=== PATIENT | male | born 1995 | race Caucasian/White ===

== ENCOUNTER 2018-02-02 10:12 | Emergency (ER) | payer SELFPAY ==
--- NOTE | 2018-02-02 10:38 | RAD REPORT ---
EXAM DESCRIPTION: CT - Head Brain Wo Cont - 02/02/2018 10:28 am CLINICAL HISTORY: Trauma, transient alteration of awareness COMPARISON: None. TECHNIQUE: Axial 5 mm thick images of the head were obtained without IV contrast. All CT scans are performed using dose optimization technique as appropriate and may include automated exposure control or mA/KV adjustment according to patient size. FINDINGS: No intracranial hemorrhage, mass, edema or shift of mid-line structures. No acute infarcti on changes seen. No abnormal extra-axial fluid collections. Ventricles are normal. Mastoid air cells and visualized portions of the paranasal sinuses are clear. No acute bony findings. IMPRESSION: Negative non-contrast CT head examination.
[2018-02-02 10:40] LABS: Absolute Lymphocytes (CBC) 1.5 K/uL (0.7-4.9); Absolute Monocytes 0.2 K/uL (0.1-1.3); Absolute Neutrophil 2.9 K/uL (1.8-8.0); Basophils % 0.1 % (0-1.3); Eosinophils % 0.7 % (0-4.4); Hematocrit 43.4 % (39.6-49.0); Lymphocytes % 31.4 % (15.3-44.8); MCH 31.6 pg (27.0-35.0); MCV 90.3 fL (80-100); MPV 9.5 fL (7.6-11.3); Monocytes % 5.3 % (3.3-12.3)
[2018-02-02] MEDS ORDERED: NA CHLORIDE 0.9% 1,000 ML ONE (10:52)
[2018-02-02 11:07] LABS: ALT/SGPT 23 U/L (12-78); AST/SGOT 22 U/L (15-37); Albumin 3.8 g/dL (3.4-5.0); Alkaline Phosphatase 80 U/L (45-117); BUN Blood Urea Nitrogen 12 mg/dL (7-18); Bicarbonate 32 mmol/L (21-32); Bilirubin Direct < 0.1 mg/dL (0-0.2); Bilirubin Total 0.2 mg/dL (0.2-1.0); Glucose Level 84 mg/dL (74-106); Potassium 4.3 mmol/L (3.5-5.1); Protein, Total 7.4 g/dL (6.4-8.2); Sodium Level 141 mmol/L (136-145)
[2018-02-02 11:56] LABS: Barbiturates NEGATIVE (NEGATIVE); Benzodiazepines NEGATIVE (NEGATIVE); Cocaine NEGATIVE (NEGATIVE); METHAMPHETAM NEGATIVE (NEGATIVE); Methadone NEGATIVE (NEGATIVE); Opiates NEGATIVE (NEGATIVE); Phencyclidine NEGATIVE (NEGATIVE); THC Cannibis POSITIVE (NEGATIVE)
[2018-02-02 12:27] LABS: Urine Blood NEGATIVE (NEG); Urine Glucose NEGATIVE (NEG); Urine Protein NEGATIVE (NEG)
--- NOTE | 2018-02-02 12:41 | EDPHYS ---
Physician Documentation [facility] Name: Elliot Paige Age: 22 yrs Sex: Male : 1995 Arrival Date: 02/02/2018 Time: 10:14 Bed 19 Private MD: ED Physician Elmer Sidhu HPI: 02/02 10:56 This 22 yrs old Male presents to ER via EMS with complaints of AMS s/p kb synthetic marijuana use. 10:56 The patient presents with decreased mental status. Onset: The symptoms/episode kb began/occurred just prior to arrival. Possible causes: drug use, synthetic marijuana. Associated signs and symptoms: The patient has no apparent associated signs or symptoms. Current symptoms: In the emergency department the patient's symptoms have resolved, the patient is alert and fully oriented, has normal speech, has normal responsiveness, has no confusion. Patient's baseline: Neuro: alert and fully oriented, Motor: no deficits, Ambulation: walks without assistance, Speech: normal, The patient has a previous history of chronic drug use. The patient has not experienced similar symptoms in the past. The patient has not recently seen a physician. Pt reports he was smoking synthetic on the street, fell down, the ambulance came and brought him here. EMS reports they were called by bystander that saw pt fall down. . Historical: - Allergies: 10:19 No Known Allergies; aj - PMHx: 10:19 Bipolar disorder; Cutter; aj - PSHx: 10:19 None; aj - Immunization history:: Adult Immunizations up to date. - Social history:: Smoking status: Patient/guardian denies using tobacco. - Ebola Screening: : Patient negative for fever greater than or equal to 101.5 degrees Fahrenheit, and additional compatible Ebola Virus Disease symptoms Patient denies exposure to infectious person Patient denies travel to an Ebola-affected area in the 21 days before illness onset No symptoms or risks identified at this time. ROS: 10:56 Constitutional: Negative for fever, chills, and weight loss, ENT: Negative for injury, kb pain, and discharge, Neck: Negative for injury, pain, and swelling, Cardiovascular: Negative for chest pain, palpitations, and edema, Respiratory: Negative for shortness of breath, cough, wheezing, and pleuritic chest pain, Abdomen/GI: Negative for abdominal pain, nausea, vomiting, diarrhea, and constipation, Back: Negative for injury and pain, : Negative for injury, bleeding, discharge, and swelling, MS/Extremity: Negative for injury and deformity, Skin: Negative for injury, rash, and discoloration, Neuro: Negative for headache, weakness, numbness, tingling, and seizure. Exam: 10:56 Constitutional: This is a well developed, well nourished patient who is awake, alert, kb and in no acute distress. Head/Face: Normocephalic, atraumatic. ENT: Nares patent. No nasal discharge, no septal abnormalities noted. Tympanic membranes are normal and external auditory canals are clear. Oropharynx with no redness, swelling, or masses, exudates, or evidence of obstruction, uvula midline. Mucous membranes moist. Neck: Trachea midline, no thyromegaly or masses palpated, and no cervical lymphadenopathy. Supple, full range of motion without nuchal rigidity, or vertebral point tenderness. No Meningismus. Chest/axilla: Normal chest wall appearance and motion. Nontender with no deformity. No lesions are appreciated. Cardiovascular: Regular rate and rhythm with a normal S1 and S2. No gallops, murmurs, or rubs. Normal PMI, no JVD. No pulse deficits. Respiratory: Lungs have equal breath sounds bilaterally, clear to auscultation and percussion. No rales, rhonchi or wheezes noted. No increased work of breathing, no retractions or nasal flaring. Abdomen/GI: Soft, non-tender, with normal bowel sounds. No distension or tympany. No guarding or rebound. No evidence of tenderness throughout. Skin: Warm, dry with normal turgor. Normal color with no rashes, no lesions, and no evidence of cellulitis. MS/ Extremity: Pulses equal, no cyanosis. Neurovascular intact. Full, normal range of motion. Neuro: Awake and alert, GCS 15, oriented to person, place, time, and situation. Cranial nerves II-XII grossly intact. Motor strength 5/5 in all extremities. Sensory grossly intact. Cerebellar exam normal. Normal gait. Vital Signs: 10:19 BP 119 / 72; Pulse 75; Resp 17; Temp 98.1; Pulse Ox 99% on R/A; Weight 79.83 kg; Height aj 6 ft. 1 in. (185.42 cm); 11:33 BP 117 / 67; Pulse 65; Resp 16; Pulse Ox 99% on R/A; aj 12:56 BP 121 / 81; Pulse 75; Resp 18; Pulse Ox 99% on R/A; aj 10:19 Body Mass Index 23.22 (79.83 kg, 185.42 cm) aj MDM: 10:14 Patient medically screened. kb 10:56 Data reviewed: vital signs, nurses notes. Data interpreted: Pulse oximetry: on room air kb is 99 %. Interpretation: normal. 12:32 Counseling: I had a detailed discussion with the patient and/or guardian regarding: the kb historical points, exam findings, and any diagnostic results supporting the discharge/admit diagnosis, lab results, radiology results, the need for outpatient follow up, a family practitioner, to return to the emergency department if symptoms worsen or persist or if there are any questions or concerns that arise at home. 02/02 10:15 Order name: Acetaminophen 02/02 10:15 Order name: Basic Metabolic Panel 02/02 10:15 Order name: CBC with Diff 02/02 10:15 Order name: ETOH Level 02/02 10:15 Order name: Hepatic Function 02/02 10:15 Order name: Salicylate 02/02 10:15 Order name: Urine Drug Screen 02/02 10:41 Order name: CBC with Automated Diff; Complete Time: 10:42 EDMS 02/02 10:54 Order name: Alcohol Serum/Plasma; Complete Time: 11:02 EDMS 02/02 11:06 Order name: Salicylates Level; Complete Time: 11:10 EDMS 02/02 11:10 Order name: Basic Metabolic Panel; Complete Time: 11:12 EDMS 02/02 11:10 Order name: Liver (Hepatic) Function; Complete Time: 11:12 EDMS 02/02 11:10 Order name: Acetaminophen Level; Complete Time: 11:12 EDMS 02/02 11:34 Order name: Urine Dipstick--Ancillary (enter results) lt1 02/02 10:15 Order name: EKG; Complete Time: 10:16 kb 02/02 10:15 Order name: EKG - Nurse/Tech; Complete Time: 11:00 kb 02/02 10:15 Order name: IV Saline Lock; Complete Time: 10:22 kb 02/02 10:15 Order name: Labs collected and sent; Complete Time: 10:22 kb 02/02 10:15 Order name: Urine Dipstick-Ancillary (obtain specimen); Complete Time: 11:32 kb 02/02 10:15 Order name: CT Head Brain wo Cont kb 02/02 10:39 Order name: CT; Complete Time: 10:42 EDMS 02/02 11:57 Order name: Urine Drug Screen; Complete Time: 11:58 EDMS 02/02 12:27 Order name: Urine Dipstick-Ancillary; Complete Time: 12:29 EDMS Administered Medications: 10:49 Drug: NS 0.9% 1000 ml Route: IV; Rate: 1000 ml; Site: right antecubital; aj 13:01 Follow up: Response: No adverse reaction; IV Status: Completed infusion; IV Intake: aj 1000ml Disposition: 14:46 Co-signature as Attending Physician, Elmer Sidhu MD. rn Disposition: 02/02/18 12:40 Discharged to Home. Impression: Altered mental status, unspecified - s/p synthetic marijuana use. - Condition is Stable. - Medication Reconciliation Form, Thank You Letter, Antibiotic Education, Prescription Opioid Use form. - Follow up: Emergency Department; When: As needed; Reason: Worsening of condition. Follow up: Private Physician; When: 2 - 3 days; Reason: Recheck today's complaints, Continuance of care, Re-evaluation by your physician. Signatures: Dispatcher [employer] E[employer]ring Tavares, TAMALE MAKER-C TAMALE MAKER-Merissa Quan RN RN Elmer Cerna MD MD rn or lpn: (The following items were deleted from the chart) 13:03 12:40 02/02/2018 12:40 Discharged to Home. Impression: Altered mental status, aj unspecified - s/p synthetic marijuana use. Condition is Stable. Forms are Medication Reconciliation Form, Thank You Letter, Antibiotic Education, Prescription Opioid Use. Follow up: Emergency Department; When: As needed; Reason: Worsening of condition. Follow up: Private Physician; When: 2 - 3 days; Reason: Recheck today's complaints, Continuance of care, Re-evaluation by your physician. kb
--- NOTE | 2018-02-02 12:41 | ER ---
Nurse's Notes [facility] Name: Elliot Paige Age: 22 yrs Sex: Male : 1995 Arrival Date: 02/02/2018 Time: 10:14 Bed 19 Private MD: Diagnosis: Altered mental status, unspecified-s/p synthetic marijuana use Presentation: 02/02 10:15 Presenting complaint: EMS states: Patient reports smoking "weed" today just [employer] and had aj a witnessed syncopal episode. Patient awake and alert upon arrival. Transition of care: patient was not received from another setting of care. Onset of symptoms was February 02, 2018. Risk Assessment: Do you want to hurt yourself or someone else? Patient reports no desire to harm self or others. Initial Sepsis Screen: Does the patient meet any 2 criteria? No. Patient's initial sepsis screen is negative. Does the patient have a suspected source of infection? No. Patient's initial sepsis screen is negative. Care prior to arrival: Glucose check: 74. 10:15 Method Of Arrival: EMS: [facility] aj 10:15 Acuity: MEGA 3 aj Triage Assessment: 10:19 General: Appears in no apparent distress. comfortable, Behavior is calm, cooperative, aj appropriate for age. Pain: Denies pain. Neuro: Level of Consciousness is awake, alert, obeys commands, Oriented to person, place, time, situation, Appropriate for age. Respiratory: Airway is patent Respiratory effort is even, unlabored, Respiratory pattern is regular, symmetrical. Derm: Skin is intact, is healthy with good turgor, Skin is pink, warm \\T\\ dry. normal. Historical: - Allergies: 10:19 No Known Allergies; aj - PMHx: 10:19 Bipolar disorder; Cutter; aj - PSHx: 10:19 None; aj - Immunization history:: Adult Immunizations up to date. - Social history:: Smoking status: Patient/guardian denies using tobacco. - Ebola Screening: : Patient negative for fever greater than or equal to 101.5 degrees Fahrenheit, and additional compatible Ebola Virus Disease symptoms Patient denies exposure to infectious person Patient denies travel to an Ebola-affected area in the 21 days before illness onset No symptoms or risks identified at this time. Screenin:21 Abuse screen: Denies threats or abuse. Denies injuries from another. Nutritional aj screening: No deficits noted. Tuberculosis screening: No symptoms or risk factors identified. Fall Risk None identified. Assessment: 10:21 Reassessment: see triage. aj 10:24 Reassessment: Pt to CT now VIA stretcher. ss 11:31 Reassessment: Patient appears in no apparent distress at this time. No changes from aj previously documented assessment. Patient and/or family updated on plan of care and expected duration. Pain level reassessed. Patient is alert, oriented x 3, equal unlabored respirations, skin warm/dry/pink. 12:56 Reassessment: Patient appears in no apparent distress at this time. No changes from aj previously documented assessment. Patient and/or family updated on plan of care and expected duration. Pain level reassessed. Patient is alert, oriented x 3, equal unlabored respirations, skin warm/dry/pink. Patient states feeling better. Vital Signs: 10:19 BP 119 / 72; Pulse 75; Resp 17; Temp 98.1; Pulse Ox 99% on R/A; Weight 79.83 kg; Height aj 6 ft. 1 in. (185.42 cm); 11:33 BP 117 / 67; Pulse 65; Resp 16; Pulse Ox 99% on R/A; aj 12:56 BP 121 / 81; Pulse 75; Resp 18; Pulse Ox 99% on R/A; aj 10:19 Body Mass Index 23.22 (79.83 kg, 185.42 cm) aj ED Course: 10:14 Patient arrived in ED. kb 10:14 [facility]C [facility] kb 10:14 Elmer Sidhu MD is Attending Physician. kb 10:15 Merissa Alvarez, RYAN is Primary Nurse. aj 10:19 Triage completed. aj 10:19 Arm band placed on left wrist. Patient placed in an exam room, on a stretcher, on pulse aj oximetry. 10:22 Inserted saline lock: 20 gauge in right antecubital area, using aseptic technique. aj Blood collected. 10:[address] mw3 10:27 CT completed. Patient tolerated procedure well. Patient moved back from CT. mw3 11:32 Acetaminophen Sent. aj 11:32 Basic Metabolic Panel Sent. aj 11:32 CBC with Diff Sent. aj 11:32 ETOH Level Sent. aj 11:32 Hepatic Function Sent. aj 11:32 Salicylate Sent. aj 11:32 Urine Drug Screen Sent. aj 13:02 Patient has correct armband on for positive identification. aj 13:02 No provider procedures requiring assistance completed. IV discontinued, intact, aj bleeding controlled, No redness/swelling at site. Pressure dressing applied. Administered Medications: 10:49 Drug: NS 0.9% 1000 ml Route: IV; Rate: 1000 ml; Site: right antecubital; aj 13:01 Follow up: Response: No adverse reaction; IV Status: Completed infusion; IV Intake: aj 1000ml Intake: 13:01 IV: 1000ml; Total: 1000ml. aj Outcome: 12:40 Discharge ordered by . kb 13:02 Discharged to home ambulatory. aj 13:02 Condition: good 13:02 Discharge instructions given to patient, Instructed on discharge instructions, follow up and referral plans. Demonstrated understanding of instructions, follow-up care. 13:03 Patient left the ED. aj Signatures: Spring Ramsay, DIRECTOR [facility]-C DIRECTOR [facility]-CkMerissa Cedillo RN Natalie Ingram RN RN ss Willis, Michelle mw3
--- NOTE | 2018-02-02 15:37 | EKG ---
Test Date: 2018-02-02 Test Time: 10:47:53 Compounder: ARIEL MEASUREMENT RESULTS: Intervals: Rate: 57 NE: 146 QRSD: 98 QT: 422 QTc: 410 Freedom: P: 78 NE: 146 QRS: 56 T: 42 INTERPRETIVE STATEMENTS: Sinus bradycardia Otherwise normal ECG Compared to ECG 04/22/2017 12:49:43 Sinus rhythm no longer present Electronically Signed On 02-02-18 15:36:41 PARASITOLOGY TEACHER by Pradeep Alves
== END 2018-02-02 13:03 | disposition home or self-care (01) ==
LOC: ER 10:12
DX: R41.82 Altered mental status, unspecified (principal); F12.90 Cannabis use, unspecified, uncomplicated; R00.1 Bradycardia, unspecified
CPT/HCPCS: 36415; 70450; 80048; 80076; 80307; 80320; 80329; 81003; 85025; 93005; 96360; 96361; 99284; J7030

== ENCOUNTER 2018-02-03 11:22 | Emergency (ER) | payer SELFPAY ==
--- NOTE | 2018-02-03 12:01 | ER ---
Nurse's Notes [facility] Name: Elliot Paige Age: 22 yrs Sex: Male : 1995 Arrival Date: 02/03/2018 Time: 11:24 Bed 3 Private MD: Diagnosis: Dizziness and giddiness Presentation: 02/03 11:26 Presenting complaint: EMS states: Pt found by police stumbling on side of the road, pt ph admits to taking "stackers" reports that he has not slept or ate in a few days, oriented x 4, hypotensive on scene 90s/40s, 300-400 mL NS administered and BP improved to 106/54. Transition of care: patient was not received from another setting of care. Onset of symptoms was February 03, 2018. Risk Assessment: Do you want to hurt yourself or someone else? Patient reports no desire to harm self or others. Initial Sepsis Screen: Does the patient meet any 2 criteria? No. Patient's initial sepsis screen is negative. Does the patient have a suspected source of infection? No. Patient's initial sepsis screen is negative. Care prior to arrival: Medication(s) given: Normal saline infusion, 500 mL, IV initiated. 20 GA, in the left antecubital area. 11:26 Method Of Arrival: EMS: [facility] 11:26 Acuity: MEGA 3 ph Historical: - Allergies: 11:28 No Known Allergies; sv - PMHx: 11:28 Bipolar disorder; Cutter; sv 11:30 Seizures; drug abuse; sv - PSHx: 11:28 None; sv - Immunization history:: Adult Immunizations unknown. - Social history:: Smoking status: Patient uses tobacco products, smokes one pack cigarettes per day. Patient uses street drugs, marijuana, over the counter diet medications, "stackers", Patient/guardian denies using alcohol. - Family history:: not pertinent. - Ebola Screening: : No symptoms or risks identified at this time. - Hospitalizations: : No recent hospitalization is reported. Screenin:26 Abuse screen: Denies threats or abuse. Denies injuries from another. Nutritional sv screening: No deficits noted. Tuberculosis screening: No symptoms or risk factors identified. Fall Risk None identified. Assessment: 11:32 General: Appears in no apparent distress. comfortable, unkempt, Behavior is calm, ph cooperative, drowsy, flat, quiet. Pain: Denies pain. Neuro: Level of Consciousness is awake, obeys commands, lethargic, Oriented to person, place, time, situation. Cardiovascular: Denies chest pain, lightheadedness, shortness of breath, Capillary refill < 3 seconds in bilateral fingers Patient's skin is warm and dry. Respiratory: Airway is patent Respiratory effort is even, unlabored, Respiratory pattern is regular, symmetrical. GI: No signs and/or symptoms were reported involving the gastrointestinal system. Patient currently denies abdominal pain, diarrhea, nausea, vomiting. Derm: Skin is healthy with good turgor, Skin is pink, warm \\T\\ dry. Musculoskeletal: Circulation, motion, and sensation intact. Range of motion: intact in all extremities. 11:43 Reassessment: pt noted to be walking out of dept while putting on his jacket, pt walked iw out to parking lot, asked pt if he still has IV in place, pt states it was still hanging on his arm with a piece of tape, IV catheter taken from pt, pt immediately walked away, with steady gait. Vital Signs: 11:27 BP 120 / 54; Pulse 69; Resp 16; Pulse Ox 98% ; Weight 77.11 kg; Height 6 ft. 1 in. sv (185.42 cm); Pain 0/10; 11:27 Body Mass Index 22.43 (77.11 kg, 185.42 cm) sv ED Course: 11:24 Patient arrived in ED. ph 11:25 Elmer Sidhu MD is Attending Physician. rn 11:26 Maintain EMS IV. Dressing intact. Good blood return noted. Site clean \\T\\ dry. Gauge \\T\\ sv site: 20G L AC. 11:26 Patient has correct armband on for positive identification. Placed in gown. Bed in low sv position. Side rails up X2. quality assurance monitor body on. Pulse ox on. NIBP on. Door closed. Warm blanket given. Head of bed elevated. 11:28 ED physician to see patient. sv 11:30 Arm band placed on. ph 11:32 Triage completed. ph 11:43 Alley Brady, RYAN is Primary Nurse. iw 11:45 No provider procedures requiring assistance completed. IV discontinued, intact, ph bleeding controlled, No redness/swelling at site. Pressure dressing applied. Administered Medications: No medications were administered Point of Care Testing: Blood Glucose: 11:25 Blood Glucose: 90 mg/dL; iw Ranges: Outcome: 11:59 Discharge ordered by MD. aguirre 12:02 Discharged to home ambulatory, pt left before signing d/c papers ph 12: Condition: stable 12:02 Discharge instructions given to pt left before discharge instructions iw 12:03 Patient left the ED. ph Signatures: Danita Schumacher RN RN Alley Brady RN RN Elmer Sidhu MD MD rn Hall, Patricia, RN RN ph Corrections: (The following items were deleted from the chart) 12: 12: No provider procedures requiring assistance completed. ph ph 12: 12:02 IV discontinued, intact, bleeding controlled, No redness/swelling at site. ph Pressure dressing applied, ph
--- NOTE | 2018-02-03 12:01 | EDPHYS ---
Physician Documentation [facility] Name: Elliot Paige Age: 22 yrs Sex: Male : 1995 Arrival Date: 02/03/2018 Time: 11:24 Bed 3 Private MD: ED Physician Elmer Sidhu HPI: 02/03 11:48 This 22 yrs old Male presents to ER via EMS with complaints of dizziness. 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 Patient reports feels fine. Smoked synthetic marijuana yesterday and seen here, cleared, asymptomatic currently. Denies overdose or ETOH today. Wants to leave and refuses w/u. . Onset: The symptoms/episode began/occurred this morning. Severity of symptoms: At their worst the symptoms were mild in the emergency department the symptoms have improved. The patient has been recently seen by a physician: The patient has been recently seen at the [facility] Emergency Department, yesterday. Historical: - Allergies: 11:28 No Known Allergies; sv - PMHx: 11:28 Bipolar disorder; Cutter; sv 11:30 Seizures; drug abuse; sv - PSHx: 11:28 None; sv - Immunization history:: Adult Immunizations unknown. - Social history:: Smoking status: Patient uses tobacco products, smokes one pack cigarettes per day. Patient uses street drugs, marijuana, over the counter diet medications, "stackers", Patient/guardian denies using alcohol. - Family history:: not pertinent. - Ebola Screening: : No symptoms or risks identified at this time. - Hospitalizations: : No recent hospitalization is reported. ROS: 11:48 Constitutional: Negative for fever, chills, and weight loss, Eyes: Negative for injury, rn pain, redness, and discharge, Cardiovascular: Negative for chest pain, palpitations, and edema, Respiratory: Negative for shortness of breath, cough, wheezing, and pleuritic chest pain, Abdomen/GI: Negative for abdominal pain, nausea, vomiting, diarrhea, and constipation, MS/Extremity: Negative for injury and deformity, Skin: Negative for injury, rash, and discoloration, Neuro: Negative for headache, weakness, numbness, tingling, and seizure. Exam: 11:48 Constitutional: This is a well developed, well nourished patient who is awake, alert, rn and in no acute distress. Head/Face: Normocephalic, atraumatic. Eyes: Pupils equal round and reactive to light, extra-ocular motions intact. Lids and lashes normal. Conjunctiva and sclera are non-icteric and not injected. Cornea within normal limits. Periorbital areas with no swelling, redness, or edema. NO nystagmus ENT: Nares patent. No nasal discharge, no septal abnormalities noted. Oropharynx with no redness, swelling, or masses, exudates, or evidence of obstruction, uvula midline. Mucous membranes moist. Neck: Trachea midline, no thyromegaly or masses palpated, and no cervical lymphadenopathy. Supple, full range of motion without nuchal rigidity, or vertebral point tenderness. No Meningismus. Cardiovascular: Regular rate and rhythm with a normal S1 and S2. No gallops, murmurs, or rubs. Normal PMI, no JVD. No pulse deficits. Respiratory: Lungs have equal breath sounds bilaterally, clear to auscultation and percussion. No rales, rhonchi or wheezes noted. No increased work of breathing, no retractions or nasal flaring. Abdomen/GI: Soft, non-tender, with normal bowel sounds. No distension or tympany. No guarding or rebound. No evidence of tenderness throughout. Skin: Warm, dry with normal turgor. Normal color with no rashes, no lesions, and no evidence of cellulitis. MS/ Extremity: Pulses equal, no cyanosis. Neurovascular intact. Full, normal range of motion. Equal circumference. Neuro: Awake and alert, GCS 15, oriented to person, place, time, and situation. Cranial nerves II-XII grossly intact. Motor strength 5/5 in all extremities. Sensory grossly intact. Normal gait. Vital Signs: 11:27 BP 120 / 54; Pulse 69; Resp 16; Pulse Ox 98% ; Weight 77.11 kg; Height 6 ft. 1 in. sv (185.42 cm); Pain 0/10; 11:27 Body Mass Index 22.43 (77.11 kg, 185.42 cm) sv MDM: 11:25 Patient medically screened. rn 11:48 Differential Diagnosis drug use, dehydration. rn 11:58 Data reviewed: vital signs, nurses notes, and as a result, I will discharge patient. rn Counseling: I had a detailed discussion with the patient and/or guardian regarding: the historical points, exam findings, and any diagnostic results supporting the discharge/admit diagnosis, the need for outpatient follow up, to return to the emergency department if symptoms worsen or persist or if there are any questions or concerns that arise at home. Special discussion: I discussed with the patient/guardian in detail that at this point there is no indication for admission to the hospital. It is understood, however, that if the symptoms persist or worsen the patient needs to return immediately for re-evaluation. ED course: Pt refuses w/u or intervention, feels fine, states is getting ride home, normal vitals, normal neuro exam, will dc home. . 02/03 11:25 Order name: glucometer results - FOR PT WITH NO ID iw Administered Medications: No medications were administered Point of Care Testing: Blood Glucose: 11:25 Blood Glucose: 90 mg/dL; iw Ranges: Critical Glucose Levels:Adult <50 mg/dl or >400 mg/dl <40 mg/dl or >180 mg/dl Disposition: 02/03/18 11:59 Discharged to Home. Impression: Dizziness and giddiness. - Condition is Stable. - Discharge Instructions: Dizziness. - Medication Reconciliation Form, Thank You Letter, Antibiotic Education, Prescription Opioid Use form. - Follow up: Private Physician; When: As needed; Reason: Recheck today's complaints, Re-evaluation by your physician. - Problem is new. - Symptoms have improved. Signatures: Dispatcher [employer] EDNJ Danita Schumacher RN RN sv Nieto, Roman, MD MD rn Hall, Patricia, RN RN ph Corrections: (The following items were deleted from the chart) 12:03 11:59 02/03/2018 11:59 Discharged to Home. Impression: Dizziness and giddiness. ph Condition is Stable. Forms are Medication Reconciliation Form, Thank You Letter, Antibiotic Education, Prescription Opioid Use. Follow up: Private Physician; When: As needed; Reason: Recheck today's complaints, Re-evaluation by your physician. Problem is new. Symptoms have improved. rn
== END 2018-02-03 12:03 | disposition home or self-care (01) ==
LOC: ER 11:22
DX: R42 Dizziness and giddiness (principal); F17.210 Nicotine dependence, cigarettes, uncomplicated; F31.9 Bipolar disorder, unspecified
CPT/HCPCS: 36415; 82962; 99284

== ENCOUNTER 2018-05-12 04:49 | Emergency (ER) | payer SELFPAY ==
[2018-05-12] MEDS ORDERED: NA CHLORIDE 0.9% 1,000 ML ONE (05:39)
[2018-05-12] MEDS ORDERED: LORazepam 2 MG/ML VIAL ONE (05:39)
[2018-05-12 06:00] LABS: Absolute Lymphocytes (CBC) 1.6 K/uL (0.7-4.9); Absolute Monocytes 0.5 K/uL (0.1-1.3); Absolute Neutrophil 10.2 K/uL (1.8-8.0); Basophils % 0.1 % (0-1.3); Eosinophils % 0.1 % (0-4.4); Hematocrit 43.8 % (39.6-49.0); Lymphocytes % 12.9 % (15.3-44.8); Monocytes % 3.9 % (3.3-12.3); RBC Red Blood Cell Count 4.74 M/uL (4.33-5.43)
[2018-05-12 06:02] LABS: Protime INR 1.22
[2018-05-12 06:30] LABS: ALT/SGPT 24 U/L (12-78); AST/SGOT 25 U/L (15-37); Albumin 4.4 g/dL (3.4-5.0); Alkaline Phosphatase 87 U/L (45-117); BUN Blood Urea Nitrogen 21 mg/dL (7-18); Bicarbonate 25 mmol/L (21-32); Bilirubin Direct 0.2 mg/dL (0-0.2); Bilirubin Total 0.9 mg/dL (0.2-1.0); Glucose Level 112 mg/dL (74-106); Potassium 3.6 mmol/L (3.5-5.1); Protein, Total 8.3 g/dL (6.4-8.2); Sodium Level 141 mmol/L (136-145)
--- NOTE | 2018-05-12 07:06 | ER ---
Nurse's Notes [facility] Name: Elliot Paige Age: 22 yrs Sex: Male : 1995 Arrival Date: 05/12/2018 Time: 04:55 Bed 3 Private MD: Diagnosis: Adverse effect of amphetamines Presentation: 05/12 04:55 Presenting complaint: EMS states: that pt has been on a binge of eating Meth and fc smoking Synthetic Pot for 4 days. Tonight he started to vomit, have cramps and spasms to exts and having issues with being hot/cold. Pt denies being suicidal or homicidal. Transition of care: patient was not received from another setting of care. Onset of symptoms was May 12, 2018. Risk Assessment: Do you want to hurt yourself or someone else? Patient reports no desire to harm self or others. Initial Sepsis Screen: Does the patient meet any 2 criteria? No. Patient's initial sepsis screen is negative. Does the patient have a suspected source of infection? No. Patient's initial sepsis screen is negative. Care prior to arrival: None. 04:55 Method Of Arrival: EMS: [facility] 04:55 Acuity: MEGA 3 fc Historical: - Allergies: 04:58 No Known Allergies; fc - Home Meds: 04:58 None [Active]; fc - PMHx: 04:58 Bipolar disorder; Cutter; drug abuse; Seizures; fc - PSHx: 04:58 None; fc - Immunization history:: Last tetanus immunization: unknown, Flu vaccine is not up to date. - Social history:: Smoking status: Patient uses tobacco products, smokes one pack cigarettes per day. Patient uses street drugs, marijuana, Methamphetamine (Meth) Synthetic Marijuana. - Ebola Screening: : Patient negative for fever greater than or equal to 101.5 degrees Fahrenheit, and additional compatible Ebola Virus Disease symptoms Patient denies exposure to infectious person Patient denies travel to an Ebola-affected area in the 21 days before illness onset. Screenin:59 Abuse screen: Denies threats or abuse. Nutritional screening: No deficits noted. fc Tuberculosis screening: No symptoms or risk factors identified. Fall Risk Fall in past 12 months (25 points). Secondary diagnosis (15 points) impaired mobility, IV access (20 points). Ambulatory Aid- Crutches/Cane/Walker (15 pts). Gait- Impaired (20 pts.). Mental Status- Overestimates/Forgets Limitations (15 pts.). Total Leal Fall Scale indicates High Risk Score (45 or more points). Fall prevention measures have been instituted. Side Rails Up X 2 Placed Close to Nursing Station Frequent Obs/Assessments Occuring As available patient and family educated on Fall Prevention Program and Strategies. Assessment: 05:02 General: Appears uncomfortable, Behavior is cooperative, anxious, restless. Pain: jd3 Complains of pain in abdomen Quality of pain is described as sharp, stabbing, squeezing. Neuro: Level of Consciousness is awake, alert, obeys commands, Oriented to person, place, time, situation, Appropriate for age. Cardiovascular: Heart tones S1 S2 present Capillary refill < 3 seconds Patient's skin is warm and dry. Respiratory: Airway is patent Respiratory effort is even, unlabored, Respiratory pattern is regular, symmetrical, Breath sounds are clear bilaterally. GI: Abdomen is flat, non-distended, Bowel sounds present X 4 quads. Abd is soft Abdomen is tender to palpation X 4 quads. Reports nausea, vomiting. : No signs and/or symptoms were reported regarding the genitourinary system. EENT: No signs and/or symptoms were reported regarding the EENT system. Derm: Skin is intact, Skin is diaphoretic, Skin is normal, Skin temperature is warm. Musculoskeletal: Circulation, motion, and sensation intact. Range of motion: intact in all extremities. 05:46 Reassessment: Patient and/or family updated on plan of care and expected duration. Pain jd3 level reassessed. Patient is alert, oriented x 3, equal unlabored respirations, skin warm/dry/pink. 06:58 Reassessment: Patient appears in no apparent distress at this time. Patient and/or jd3 family updated on plan of care and expected duration. Pain level reassessed. Patient is alert, oriented x 3, equal unlabored respirations, skin warm/dry/pink. pt is resting in bed with eyes closed, even and unlabored respirations. 07:08 Reassessment: at bedside re evaluating pt prior to DC to home, pt remains sg drowsy and confused at this time. pt falls back to sleep quickly. 07:17 Reassessment: Patient appears in no apparent distress at this time. DC orders received, sg awaiting pt to respond and be able to stay awake prior to DC to home. 07:40 General: Appears in no apparent distress. Behavior is cooperative, appropriate for age, sv anxious. Pain: Denies pain. Neuro: Level of Consciousness is lethargic, Oriented to person. Respiratory: Respiratory effort is even, unlabored, Respiratory pattern is regular, symmetrical. Derm: Skin is normal, Pt has sores all over his body. 09:00 Reassessment: Patient appears in no apparent distress at this time. No changes from sv previously documented assessment. 10:00 Reassessment: Patient appears in no apparent distress at this time. No changes from sv previously documented assessment. 11:20 Reassessment: Patient appears in no apparent distress at this time. No changes from sv previously documented assessment. 12:40 Reassessment: Patient appears in no apparent distress at this time. Patient and/or sv family updated on plan of care and expected duration. Pain level reassessed. Patient is alert, oriented x 3, equal unlabored respirations, skin warm/dry/pink. Pt able to answer questions appropriately. Vital Signs: 04:58 BP 115 / 83; Pulse 71; Resp 20; Temp 97.5(O); Pulse Ox 100% on R/A; Weight 72.57 kg fc (R); Height 6 ft. 1 in. (185.42 cm) (R); Pain 9/10; 05:47 Pulse 63; Resp 23 S; Pulse Ox 98% on R/A; jd3 06:59 Pulse 66; Resp 18 S; Pulse Ox 100% on R/A; jd3 07:39 BP 113 / 70; Pulse 71; Resp 18; Pulse Ox 99% ; sv 04:58 Body Mass Index 21.11 (72.57 kg, 185.42 cm) fc 05:47 pt refusing to leave blood pressue cuff on jd3 ED Course: 04:50 Maintain EMS IV. Dressing intact. Good blood return noted. Site clean \T\ dry. Gauge \T\ fc site: 18 gauge to left a/c. 04:55 Patient arrived in ED. fc 04:57 Triage completed. fc 04:58 Arm band placed on Patient placed in an exam room, on a stretcher. fc 04:59 Patient has correct armband on for positive identification. Bed in low position. Call fc light in reach. Side rails up X2. 04:59 No provider procedures requiring assistance completed. 05:02 Ranjan Miller RN is Primary Nurse. jd3 05:05 Baltazar Levine MD is Attending Physician. 07:15 Report given to Seymour DAVIS. jd3 07:25 Danita Schumacher RN is Primary Nurse. sv 12:50 IV discontinued, intact, bleeding controlled, No redness/swelling at site. Pressure sv dressing applied. Administered Medications: 05:34 Drug: NS 0.9% 1000 ml Route: IV; Rate: 1 bolus; Site: left antecubital; jd3 07:43 Follow up: Response: No adverse reaction; IV Status: Completed infusion; IV Intake: sv 1000ml 05:34 Drug: Ativan 1 mg Route: IVP; Site: left antecubital; jd3 Intake: 07:43 IV: 1000ml; Total: 1000ml. sv Outcome: 07:06 Discharge ordered by MD. 12:50 Discharged to home ambulatory. sv 12:50 Condition: stable 12:50 Discharge instructions given to patient, Instructed on discharge instructions, follow up and referral plans. Demonstrated understanding of instructions, follow-up care. 12:54 Patient left the ED. sv Signatures: Danita Schumacher RN RN Seymour Mercer RN RN Marcella White RN RN Baltazar Levine MD MD Ranjan Miller RN RN jd3 Corrections: (The following items were deleted from the chart) 07:00 06:58 Reassessment: Patient appears in no apparent distress at this time. Patient jd3 and/or family updated on plan of care and expected duration. Pain level reassessed. Patient is alert, oriented x 3, equal unlabored respirations, skin warm/dry/pink. jd3 19:48 09:00 Reassessment: Patient appears in no apparent distress at this time. Patient sv and/or family updated on plan of care and expected duration. Pain level reassessed. Patient is alert, oriented x 3, equal unlabored respirations, skin warm/dry/pink. sv 19:49 11:50 Reassessment: Patient appears in no apparent distress at this time. Patient sv and/or family updated on plan of care and expected duration. Pain level reassessed. Patient is alert, oriented x 3, equal unlabored respirations, skin warm/dry/pink. Pt able to answer questions appropriately. sv
--- NOTE | 2018-05-12 07:06 | EDPHYS ---
Physician Documentation [facility] Name: Elliot Paige Age: 22 yrs Sex: Male : 1995 Arrival Date: 05/12/2018 Time: 04:55 Bed 3 Private MD: ED Physician Baltazar Levine HPI: 05/12 20:55 This 22 yrs old Male presents to ER via EMS with complaints of Drug Abuse. gs 20:55 Onset: The symptoms/episode began/occurred gradually. Associated signs and symptoms: gs Pertinent positives; anxiety, paranoia. Severity of symptoms: At their worst the symptoms were moderate in the emergency department the symptoms are unchanged. The patient has experienced similar episodes in the past, a few times. Historical: - Allergies: 04:58 No Known Allergies; fc - Home Meds: 04:58 None [Active]; fc - PMHx: 04:58 Bipolar disorder; Cutter; drug abuse; Seizures; fc - PSHx: 04:58 None; fc - Immunization history:: Last tetanus immunization: unknown, Flu vaccine is not up to date. - Social history:: Smoking status: Patient uses tobacco products, smokes one pack cigarettes per day. Patient uses street drugs, marijuana, Methamphetamine (Meth) Synthetic Marijuana. - Ebola Screening: : Patient negative for fever greater than or equal to 101.5 degrees Fahrenheit, and additional compatible Ebola Virus Disease symptoms Patient denies exposure to infectious person Patient denies travel to an Ebola-affected area in the 21 days before illness onset. ROS: 20:55 Psych: Negative for suicide gesture, suicidal ideation. gs 20:55 All other systems are negative. Exam: 20:55 Head/Face: Normocephalic, atraumatic. Eyes: Pupils equal round and reactive to light, gs extra-ocular motions intact. Lids and lashes normal. Conjunctiva and sclera are non-icteric and not injected. Cornea within normal limits. Periorbital areas with no swelling, redness, or edema. ENT: Nares patent. No nasal discharge, no septal abnormalities noted. Tympanic membranes are normal and external auditory canals are clear. Oropharynx with no redness, swelling, or masses, exudates, or evidence of obstruction, uvula midline. Mucous membranes moist. Neck: Trachea midline, no thyromegaly or masses palpated, and no cervical lymphadenopathy. Supple, full range of motion without nuchal rigidity, or vertebral point tenderness. No Meningismus. Chest/axilla: Normal chest wall appearance and motion. Nontender with no deformity. No lesions are appreciated. 20:55 Respiratory: Lungs have equal breath sounds bilaterally, clear to auscultation and percussion. No rales, rhonchi or wheezes noted. No increased work of breathing, no retractions or nasal flaring. Abdomen/GI: Soft, non-tender, with normal bowel sounds. No distension or tympany. No guarding or rebound. No evidence of tenderness throughout. Back: No spinal tenderness. No costovertebral tenderness. Full range of motion. MS/ Extremity: Pulses equal, no cyanosis. Neurovascular intact. Full, normal range of motion. Neuro: Awake and alert, GCS 15, oriented to person, place, time, and situation. Cranial nerves II-XII grossly intact. Motor strength 5/5 in all extremities. Sensory grossly intact. Cerebellar exam normal. Normal gait. 20:55 Constitutional: The patient appears awake. 20:55 Cardiovascular: Rate: tachycardic, Rhythm: regular. 20:55 Skin: injury, old scars from self mutilation. 20:55 Psych: Behavior/mood is anxious, Oriented to person, place, Patient has no thoughts/intents to harm self or others. Vital Signs: 04:58 BP 115 / 83; Pulse 71; Resp 20; Temp 97.5(O); Pulse Ox 100% on R/A; Weight 72.57 kg fc (R); Height 6 ft. 1 in. (185.42 cm) (R); Pain 9/10; 05:47 Pulse 63; Resp 23 S; Pulse Ox 98% on R/A; jd3 06:59 Pulse 66; Resp 18 S; Pulse Ox 100% on R/A; jd3 07:39 BP 113 / 70; Pulse 71; Resp 18; Pulse Ox 99% ; sv 04:58 Body Mass Index 21.11 (72.57 kg, 185.42 cm) fc 05:47 pt refusing to leave blood pressue cuff on jd3 MDM: 05:05 Patient medically screened. gs 20:55 Differential diagnosis: drug withdrawal. acute psychotic break, depression, psychosis gs secondary to non-compliance, od. Data reviewed: vital signs, nurses notes, lab test result(s). Counseling: I had a detailed discussion with the patient and/or guardian regarding: the historical points, exam findings, and any diagnostic results supporting the discharge/admit diagnosis, the need for outpatient follow up. Response to treatment: the patient's condition has returned to base line, and as a result, I will discharge patient. 05/12 05:26 Order name: PT-INR; Complete Time: 06:49 05/12 05:26 Order name: Acetaminophen; Complete Time: 06:49 05/12 05:26 Order name: Basic Metabolic Panel; Complete Time: 06:49 05/12 05:26 Order name: CBC with Diff; Complete Time: 06:49 05/12 05:26 Order name: ETOH Level; Complete Time: 06:49 05/12 05:26 Order name: Hepatic Function; Complete Time: 06:49 05/12 05:26 Order name: EKG; Complete Time: 05:27 05/12 05:26 Order name: EKG - Nurse/Tech; Complete Time: 05:34 05/12 05:26 Order name: IV Saline Lock; Complete Time: 05:35 05/12 05:26 Order name: Labs collected and sent; Complete Time: 05:35 Administered Medications: 05:34 Drug: NS 0.9% 1000 ml Route: IV; Rate: 1 bolus; Site: left antecubital; jd3 07:43 Follow up: Response: No adverse reaction; IV Status: Completed infusion; IV Intake: sv 1000ml 05:34 Drug: Ativan 1 mg Route: IVP; Site: left antecubital; jd3 Disposition: 05/12/18 07:06 Discharged to Home. Impression: Adverse effect of amphetamines. - Condition is Stable. - Discharge Instructions: What You Need To Know About Illegal Drug Use and Dependence, Youth. - Medication Reconciliation Form, Thank You Letter, Antibiotic Education, Prescription Opioid Use form. - Follow up: Private Physician; When: 2 - 3 days; Reason: Re-evaluation by your physician. Signatures: Dispatcher [employer] Danita Jason RN RN sv Chretien, Felicia, RN RN fc Starr, Gregory, MD MD gs Davies, Jonathon, RN RN jd3 Corrections: (The following items were deleted from the chart) 10:24 05:27 URINE DRUG SCREEN+CHEM UR.LAB.BRZ ordered. EDMS EDMS 12:54 07:06 05/12/2018 07:06 Discharged to Home. Impression: Adverse effect of amphetamines. sv Condition is Stable. Forms are Medication Reconciliation Form, Thank You Letter, Antibiotic Education, Prescription Opioid Use. Follow up: Private Physician; When: 2 - 3 days; Reason: Re-evaluation by your physician. gs
--- NOTE | 2018-05-12 10:37 | EKG ---
Test Date: 2018-05-12 Test Time: 04:55:42 Information Technology Manager: SANJAY MEASUREMENT RESULTS: Intervals: Rate: 66 KS: 96 QRSD: 100 QT: 498 QTc: 522 Murdock: P: 71 KS: 96 QRS: 81 T: 75 INTERPRETIVE STATEMENTS: Sinus rhythm with short KS with premature atrial complexes Prolonged QT Abnormal ECG Compared to ECG 02/02/2018 10:47:53 Atrial premature complex(es) now present Short KS interval now present Prolonged QT interval now present Sinus bradycardia no longer present Electronically Signed On 05-12-18 08:13:04 CDT by Pradeep Alves
== END 2018-05-12 12:54 | disposition home or self-care (01) ==
LOC: ER 04:49
DX: F41.9 Anxiety disorder, unspecified (principal); T43.625A Adverse effect of amphetamines, initial encounter; F17.210 Nicotine dependence, cigarettes, uncomplicated
CPT/HCPCS: 36415; 80048; 80076; 80320; 80329; 85025; 85610; 93005; 96361; 96374; 99283; J7030

== ENCOUNTER 2018-06-18 11:40 | Emergency (ER) | payer SELFPAY ==
--- NOTE | 2018-06-18 12:08 | ER ---
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 States, " Only a little got in my mouth before the copier operator knocked it out of my hand." EMS contacted poison control who recommended that pt be observed for N/V and possible aspiration due to bubbles in detergent. Pt denies nausea, also denies that he wishes to harm himself. Transition of care: patient was not received from another setting of care. Onset of symptoms was June 18, 2018. Risk Assessment: Do you want to hurt yourself or someone else? Patient reports no desire to harm self or others. Initial Sepsis Screen: Does the patient meet any 2 criteria? No. Patient's initial sepsis screen is negative. Does the patient have a suspected source of infection? No. Patient's initial sepsis screen is negative. Care prior to arrival: None. 11:48 Method Of Arrival: EMS: [facility] 11:48 Acuity: MEGA 3 ph Historical: - Allergies: 11:55 No Known Allergies; ph - Home Meds: 11:55 None [Active]; ph - PMHx: 11:55 Bipolar disorder; Cutter; drug abuse; Seizures; ph - Immunization history:: Adult Immunizations unknown. - Social history:: Smoking status: Patient uses tobacco products, smokes one pack cigarettes per day. Patient uses street drugs, marijuana. - Ebola Screening: : No symptoms or risks identified at this time. Screenin:55 Abuse screen: Denies threats or abuse. Denies injuries from another. Nutritional ph screening: On. Tuberculosis screening: No symptoms or risk factors identified. Fall Risk None identified. Assessment: 11:56 General: Appears in no apparent distress. comfortable, slender, Behavior is calm, ph cooperative, appropriate for age. Pain: Denies pain. Neuro: Level of Consciousness is awake, alert, obeys commands, Oriented to person, place, time, situation. Cardiovascular: Capillary refill < 3 seconds in bilateral fingers Patient's skin is warm and dry. Respiratory: Airway is patent Respiratory effort is even, unlabored, Respiratory pattern is regular, symmetrical, Breath sounds are clear bilaterally. Denies shortness of breath. GI: Abdomen is flat, non-distended, Bowel sounds present X 4 quads. Abd is soft and non tender X 4 quads. Patient currently denies abdominal pain, diarrhea, nausea, vomiting. Derm: Skin is healthy with good turgor, Skin is pink, warm \\T\\ dry. Musculoskeletal: Circulation, motion, and sensation intact. Range of motion: intact in all extremities. 12:03 Reassessment: ERP in to assess pt, pt not in room, also not found to be in restroom or lobby, will chart out as eloped. Vital Signs: 11:54 BP 131 / 115; Pulse 67; Resp 18; Temp 97.6; Pulse Ox 100% on R/A; ph ED Course: 11:42 Patient arrived in ED. em1 11:48 Jolanta Grimm, RN is Primary Nurse. ph 11:54 Triage completed. ph 11:55 Patient has correct armband on for positive identification. Bed in low position. Call light in reach. Side rails up X 1. Pulse ox on. NIBP on. 11:55 Arm band placed on. ph 11:57 Cheikh Garduno PA is [facility] 11:57 Danilo Dennison MD is Attending Physician. [facility] 12:05 No provider procedures requiring assistance completed. Patient admitted, IV remains in ph place. Administered Medications: No medications were administered Outcome: 12:05 Eloped from patient exam room, before seeing physician Time discovered patient gone: June 18, 2018 at 12:06 12:05 Condition: stable 12:08 Patient left the ED. hb Signatures: Cheikh Garduno PA PA jmm Martinez, Eric em1 Jolanta Grimm, RYAN RN Rabia Burk RN RN hb
== END 2018-06-18 12:08 | disposition left against medical advice (07) ==
LOC: ER 11:40
DX: T65.892A Toxic effect of other specified substances, intentional self-harm, initial encounter (principal); Y92.149 Unspecified place in prison as the place of occurrence of the external cause; F31.9 Bipolar disorder, unspecified; Z53.21 Procedure and treatment not carried out due to patient leaving prior to being seen by health care provider
CPT/HCPCS: 99283

== ENCOUNTER 2018-09-30 06:58 | Emergency (ER) | payer SELFPAY ==
[2018-09-30] MEDS ORDERED: PROMETHAZINE 25 MG/ML VIAL ONE (07:17)
[2018-09-30] MEDS ORDERED: NA CHLORIDE 0.9% 1,000 ML ONE ×2 (07:18→08:01)
[2018-09-30 07:45] LABS: Barbiturates NEGATIVE (NEGATIVE); Benzodiazepines NEGATIVE (NEGATIVE); Cocaine NEGATIVE (NEGATIVE); METHAMPHETAM NEGATIVE (NEGATIVE); Methadone NEGATIVE (NEGATIVE); Opiates NEGATIVE (NEGATIVE); Phencyclidine NEGATIVE (NEGATIVE); THC Cannibis NEGATIVE (NEGATIVE)
[2018-09-30 07:54] LABS: ALT/SGPT 23 U/L (12-78); AST/SGOT 18 U/L (15-37); Albumin 4.5 g/dL (3.4-5.0); Alkaline Phosphatase 67 U/L (45-117); BUN Blood Urea Nitrogen 16 mg/dL (7-18); Bicarbonate 27 mmol/L (21-32); Bilirubin Direct 0.1 mg/dL (0-0.2); Bilirubin Total 0.4 mg/dL (0.2-1.0); Glucose Level 116 mg/dL (74-106); Lipase 144 U/L (73-393); Potassium 3.4 mmol/L (3.5-5.1); Protein, Total 7.7 g/dL (6.4-8.2); Sodium Level 141 mmol/L (136-145); Thyroid Stimulating Hormone 0.194 uIU/mL (0.360-3.740)
[2018-09-30 07:59] LABS: Absolute Lymphocytes (CBC) 2.2 K/uL (0.7-4.9); Basophils % 0.1 % (0-1.3); Hematocrit 42.6 % (39.6-49.0); MPV 9.1 fL (7.6-11.3); RBC Red Blood Cell Count 4.52 M/uL (4.33-5.43)
[2018-09-30 08:11] LABS: Urine Blood NEGATIVE (NEG); Urine Glucose NEGATIVE (NEG); Urine Protein 1+ (NEG)
[2018-09-30 09:06] LABS: Urine Bacteria <20 /HPF (NONE SEEN); Urine Culture Reflex Order NOT NEEDED; Urine RBC <5 /HPF (NONE SEEN)
--- NOTE | 2018-09-30 09:57 | ER ---
Nurse's Notes [facility] Name: Elliot Paige Age: 23 yrs Sex: Male : 1995 Arrival Date: 09/30/2018 Time: 06:59 Bed 17 Private MD: Diagnosis: Nausea and vomiting;Dehydration;Thyrotoxicosis [hyperthyroidism] Presentation: 09/30 06:53 Presenting complaint: EMS states: that pt is having abd pain, nausea, vomiting and fc diarrhea. All started yesterday. Transition of care: patient was not received from another setting of care. Onset of symptoms was September 29, 2018. Risk Assessment: Do you want to hurt yourself or someone else? Patient reports no desire to harm self or others. Initial Sepsis Screen:. Care prior to arrival: None. 06:53 Method Of Arrival: EMS: [facility] 06:53 Acuity: MEGA 3 07:00 Initial Sepsis Screen: Does the patient meet any 2 criteria? No. Patient's initial em sepsis screen is negative. Does the patient have a suspected source of infection? No. Patient's initial sepsis screen is negative. Historical: - Allergies: 07:02 No Known Allergies; fc - Home Meds: 07:02 None [Active]; fc - PMHx: 07:02 Bipolar disorder; drug abuse; Cutter; Seizures; fc - PSHx: 07:02 None; fc - Immunization history:: Last tetanus immunization: up to date unknown. - Social history:: Smoking status: Patient uses tobacco products, smokes one-half pack cigarettes per day, Patient/guardian denies using alcohol, street drugs. - Ebola Screening: : Patient negative for fever greater than or equal to 101.5 degrees Fahrenheit, and additional compatible Ebola Virus Disease symptoms Patient denies exposure to infectious person Patient denies travel to an Ebola-affected area in the 21 days before illness onset. Screenin:53 Abuse screen: Denies threats or abuse. Nutritional screening: No deficits noted. fc Tuberculosis screening: No symptoms or risk factors identified. Fall Risk None identified. Assessment: 07:00 General: Appears in no apparent distress. uncomfortable, ill, slender, Behavior is em calm, cooperative, Denies fever. Pain: Complains of pain in abdomen Pain does not radiate. Pain currently is 8 out of 10 on a pain scale. Quality of pain is described as crampy, Pain began 1 day ago. Neuro: Level of Consciousness is awake, alert, obeys commands, Oriented to person, place, time, situation. Cardiovascular: Capillary refill < 3 seconds. Respiratory: Airway is patent Respiratory effort is even, unlabored, Respiratory pattern is regular, symmetrical. GI: Abdomen is flat, Bowel sounds present X 4 quads. Abd is soft X 4 quads Abd is non tender X 4 quads Reports diarrhea, nausea, vomiting. : Urine is clear, Denies burning with urination. Derm: Skin is intact, is healthy with good turgor, Skin is pink, warm \T\ dry. Musculoskeletal: Capillary refill < 3 seconds, Range of motion: intact in all extremities. 07:00 Reassessment: I agree with assessment completed by Jaya Solorio LVN . aa5 07:57 Reassessment: Patient appears in no apparent distress at this time. Patient and/or em family updated on plan of care and expected duration. Pain level reassessed. Patient is alert, oriented x 3, equal unlabored respirations, skin warm/dry/pink. reports nausea has improved, request to drink water, provider notified Patient states feeling better. Patient states symptoms have improved. 09:12 Reassessment: Patient appears in no apparent distress at this time. Patient and/or em family updated on plan of care and expected duration. Pain level reassessed. Patient is alert, oriented x 3, equal unlabored respirations, skin warm/dry/pink. Patient states feeling better. Patient states symptoms have improved. 10:16 Reassessment: Patient appears in no apparent distress at this time. Patient and/or em family updated on plan of care and expected duration. Pain level reassessed. Patient is alert, oriented x 3, equal unlabored respirations, skin warm/dry/pink. Vital Signs: 06:53 Weight 72.57 kg (R); Height 6 ft. 1 in. (185.42 cm) (R); Pain 8/10; fc 07:04 BP 149 / 76; Pulse 95; Resp 16; Temp 96.7(TE); Pulse Ox 100% on R/A; oe 08:37 BP 119 / 84; Pulse 51; Resp 18; Pulse Ox 100% on R/A; Pain 3/10; em 10:15 BP 124 / 92; Pulse 48; Resp 18; Temp 97.8(O); Pulse Ox 99% on R/A; Pain 3/10; em 06:53 Body Mass Index 21.11 (72.57 kg, 185.42 cm) ED Course: 06:53 Arm band placed on Patient placed in an exam room, on a stretcher. 06:53 Patient has correct armband on for positive identification. Bed in low position. Call light in reach. Side rails up X 1. Pulse ox on. NIBP on. 06:59 Patient arrived in ED. ms 07:01 Triage completed. 07:02 Zenobia Nieves FNP-C is [facility]. snw 07:02 Danilo Dennison MD is Attending Physician. snw 07:06 Jaya Solorio LVN is Primary Nurse. em 07:10 Initial lab(s) drawn, by nh, sent to lab. Inserted saline lock: 20 gauge in right em forearm, using aseptic technique. Blood collected. 10:12 No provider procedures requiring assistance completed. IV discontinued, intact, em bleeding controlled, No redness/swelling at site. Pressure dressing applied. Administered Medications: 07:27 Drug: NS 0.9% 1000 ml Route: IV; Rate: 1 bolus; Site: right forearm; em 08:38 Follow up: IV Status: Completed infusion; IV Intake: 1000ml em 07:27 Drug: Phenergan 6.25 mg Route: IVP; Site: right forearm; aa5 08:04 Follow up: Response: No adverse reaction; Nausea is decreased em 08:05 Drug: NS 0.9% 1000 ml Route: IV; Rate: 1 bolus; Site: right forearm; em 08:38 Follow up: IV Status: Completed infusion; IV Intake: 1000ml em Point of Care Testing: Blood Glucose: 07:06 Blood Glucose: 128 mg/dL; em Ranges: Intake: 08:38 IV: 1000ml; Total: 1000ml. em 08:38 IV: 1000ml; Total: 2000ml. em Outcome: 09:56 Discharge ordered by . snw 10:12 Discharged to home ambulatory. em 10:12 Condition: good 10:12 Discharge instructions given to patient, Instructed on discharge instructions, follow up and referral plans. medication usage, Demonstrated understanding of instructions, follow-up care, medications, Prescriptions given X 1. 10:16 Patient left the ED. em Signatures: Zenobia Nieves, REPAIRER AUTO CLOCKS-C REPAIRER [employer] CLOCKS-Csnw Marcella White, RN RN Jaya Barrientos LVN FUEL HANDLER em Neisha Castellanos ms PierceSavi ayala, RN RN aa5 Rafael Schultz Corrections: (The following items were deleted from the chart) 10:16 10:15 BP 124 / 92; Pulse 48bpm; Resp 18bpm; Pulse Ox 99% RA; Pain 3; em em
--- NOTE | 2018-09-30 09:58 | EDPHYS ---
Physician Documentation [facility] Name: Elliot Paige Age: 23 yrs Sex: Male : 1995 Arrival Date: 09/30/2018 Time: 06:59 Bed 17 Private MD: ED Physician Danilo Dennison HPI: 09/30 07:07 This 23 yrs old Male presents to ER via EMS with complaints of snw Nausea/Vomiting/Diarrhea. 07:07 The patient presents to the emergency department with nausea, vomiting, diarrhea. snw Onset: The symptoms/episode began/occurred suddenly. Possible causes: unknown. The symptoms are aggravated by food , water. Associated signs and symptoms: Pertinent positives: abdominal pain, anorexia, diarrhea, nausea, vomiting. Severity of symptoms: At their worst the symptoms were moderate severe in the emergency department the symptoms are unchanged. It is unknown whether or not the patient has had similar symptoms in the past. The patient has not recently seen a physician. Historical: - Allergies: 07:02 No Known Allergies; fc - Home Meds: 07:02 None [Active]; fc - PMHx: 07:02 Bipolar disorder; drug abuse; Cutter; Seizures; fc - PSHx: 07:02 None; fc - Immunization history:: Last tetanus immunization: up to date unknown. - Social history:: Smoking status: Patient uses tobacco products, smokes one-half pack cigarettes per day, Patient/guardian denies using alcohol, street drugs. - Ebola Screening: : Patient negative for fever greater than or equal to 101.5 degrees Fahrenheit, and additional compatible Ebola Virus Disease symptoms Patient denies exposure to infectious person Patient denies travel to an Ebola-affected area in the 21 days before illness onset. ROS: 07:07 Eyes: Negative for injury, pain, redness, and discharge, ENT: Negative for injury, snw pain, and discharge, Neck: Negative for injury, pain, and swelling, Cardiovascular: Negative for chest pain, palpitations, and edema, Respiratory: Negative for shortness of breath, cough, wheezing, and pleuritic chest pain, Back: Negative for injury and pain, : Negative for injury, bleeding, discharge, and swelling, MS/Extremity: Negative for injury and deformity, Skin: Negative for injury, rash, and discoloration, Neuro: Negative for headache, weakness, numbness, tingling, and seizure. 07:07 Constitutional: Positive for fatigue, malaise, poor PO intake. 07:07 Abdomen/GI: Positive for abdominal pain, nausea, vomiting, and diarrhea. Exam: 07:02 Head/Face: Normocephalic, atraumatic. Eyes: Pupils equal round and reactive to light, snw extra-ocular motions intact. Lids and lashes normal. Conjunctiva and sclera are non-icteric and not injected. Cornea within normal limits. Periorbital areas with no swelling, redness, or edema. ENT: Nares patent. No nasal discharge, no septal abnormalities noted. Tympanic membranes are normal and external auditory canals are clear. Oropharynx with no redness, swelling, or masses, exudates, or evidence of obstruction, uvula midline. Mucous membranes moist. Neck: Trachea midline, no thyromegaly or masses palpated, and no cervical lymphadenopathy. Supple, full range of motion without nuchal rigidity, or vertebral point tenderness. No Meningismus. Chest/axilla: Normal chest wall appearance and motion. Nontender with no deformity. No lesions are appreciated. Cardiovascular: Regular rate and rhythm with a normal S1 and S2. No gallops, murmurs, or rubs. Normal PMI, no JVD. No pulse deficits. Respiratory: Lungs have equal breath sounds bilaterally, clear to auscultation and percussion. No rales, rhonchi or wheezes noted. No increased work of breathing, no retractions or nasal flaring. Abdomen/GI: Soft, generalized tenderness, with normal bowel sounds. No distension or tympany. No guarding or rebound. No evidence of tenderness throughout. Back: No spinal tenderness. No costovertebral tenderness. Full range of motion. 07:02 MS/ Extremity: Pulses equal, no cyanosis. Neurovascular intact. Full, normal range of motion. 07:02 Constitutional: The patient appears alert, anxious, pale, restless, uncomfortable. 07:02 Skin: Appearance: Color: pale, Temperature: warm, Moisture: diaphoretic. 07:02 Psych: Behavior/mood is anxious, Affect is flat, hx of cutting, healed lacerations to bilateral arms, chest, and abdomen. Vital Signs: 06:53 Weight 72.57 kg (R); Height 6 ft. 1 in. (185.42 cm) (R); Pain 8/10; fc 07:04 BP 149 / 76; Pulse 95; Resp 16; Temp 96.7(TE); Pulse Ox 100% on R/A; oe 08:37 BP 119 / 84; Pulse 51; Resp 18; Pulse Ox 100% on R/A; Pain 3/10; em 10:15 BP 124 / 92; Pulse 48; Resp 18; Temp 97.8(O); Pulse Ox 99% on R/A; Pain 3/10; em 06:53 Body Mass Index 21.11 (72.57 kg, 185.42 cm) fc MDM: 07:02 Patient medically screened. snw 09:58 Data reviewed: vital signs, nurses notes. Data interpreted: Pulse oximetry: on room air snw is 100 %. Interpretation: normal. Counseling: I had a detailed discussion with the patient and/or guardian regarding: the historical points, exam findings, and any diagnostic results supporting the discharge/admit diagnosis, the presence of at least one elevated blood pressure reading (>120/80) during this emergency department visit, lab results, the need for outpatient follow up, for definitive care, a family practitioner, Endocrinology, to return to the emergency department if symptoms worsen or persist or if there are any questions or concerns that arise at home. Response to treatment: the patient's symptoms have markedly improved after treatment. Special discussion: Based on the history and exam findings, there is no indication for further emergent testing or inpatient evaluation. I discussed with the patient/guardian the need to see the primary care provider for further evaluation of the symptoms. Endocrinology. 09/30 07:06 Order name: Basic Metabolic Panel; Complete Time: 09:19 snw 09/30 07:06 Order name: CBC with Diff; Complete Time: 08:10 snw 09/30 07:06 Order name: Hepatic Function; Complete Time: 09:19 snw 09/30 07:06 Order name: Lipase; Complete Time: 09:19 snw 09/30 07:06 Order name: TS snw 09/30 07:06 Order name: TSH; Complete Time: 09:19 snw 09/30 07:06 Order name: Urine Drug Screen; Complete Time: 07:53 snw 09/30 07:06 Order name: Urine Microscopic Only; Complete Time: 09:08 snw 09/30 07:06 Order name: ETOH Level; Complete Time: 08:10 snw 09/30 07:34 Order name: Urine Dipstick--Ancillary (enter results); Complete Time: 08:12 eb 09/30 08:49 Order name: T4 Free; Complete Time: 09:19 EDMS 09/30 07:06 Order name: IV Saline Lock; Complete Time: 07:16 snw 09/30 07:06 Order name: Labs collected and sent; Complete Time: 07:16 snw 09/30 07:06 Order name: Urine Dipstick-Ancillary (obtain specimen); Complete Time: 07:27 snw 09/30 07:06 Order name: FSBS; Complete Time: 07:16 snw Administered Medications: 07:27 Drug: NS 0.9% 1000 ml Route: IV; Rate: 1 bolus; Site: right forearm; em 08:38 Follow up: IV Status: Completed infusion; IV Intake: 1000ml em 07:27 Drug: Phenergan 6.25 mg Route: IVP; Site: right forearm; aa5 08:04 Follow up: Response: No adverse reaction; Nausea is decreased em 08:05 Drug: NS 0.9% 1000 ml Route: IV; Rate: 1 bolus; Site: right forearm; em 08:38 Follow up: IV Status: Completed infusion; IV Intake: 1000ml em Point of Care Testing: Blood Glucose: 07:06 Blood Glucose: 128 mg/dL; em Ranges: Critical Glucose Levels:Adult <50 mg/dl or >400 mg/dl <40 mg/dl or >180 mg/dl Disposition: 09/30/18 09:56 Discharged to Home. Impression: Nausea and vomiting, Dehydration, Thyrotoxicosis [hyperthyroidism]. - Condition is Stable. - Discharge Instructions: Food Choices to Help Relieve Diarrhea, Adult, Dehydration, Adult, Hyperthyroidism, Nausea and Vomiting, Adult, Rehydration, Adult. - Prescriptions for promethazine 25 mg Oral Tablet - take 1 tablet by ORAL route every 6 hours As needed; 20 tablet. - Work release form, Medication Reconciliation Form, Thank You Letter, Antibiotic Education, Prescription Opioid Use form. - Follow up: Emergency Department; When: As needed; Reason: Worsening of condition. Follow up: Private Physician; When: 1 - 2 days; Reason: Recheck today's complaints, Continuance of care, Re-evaluation by your physician. Addendum: 10/03/2018 08:55 Co-signature as Attending Physician, Danilo Dennison MD I agree with the assessment and k dr plan of care. Signatures: Dispatcher [employer] EDFL Danilo Dennison MD MD [facility] Zenobia Nieves, DENTAL FRONT OFFICE ASSISTANT-C DENTAL FRONT OFFICE ASSISTANT-Csnw Marcella White, RN RN fc Jaya Solorio, PRODUCT SAFETY ADMINISTRATOR PRODUCT SAFETY ADMINISTRATOR em Savi Pierce, RN RN aa5 Corrections: (The following items were deleted from the chart) 09/30 10:16 09:56 09/30/2018 09:56 Discharged to Home. Impression: Nausea and vomiting; em Dehydration; Thyrotoxicosis [hyperthyroidism]. Condition is Stable. Forms are Medication Reconciliation Form, Thank You Letter, Antibiotic Education, Prescription Opioid Use. Follow up: Emergency Department; When: As needed; Reason: Worsening of condition. Follow up: Private Physician; When: 1 - 2 days; Reason: Recheck today's complaints, Continuance of care, Re-evaluation by your physician. snw
== END 2018-09-30 10:16 | disposition home or self-care (01) ==
LOC: ER 06:58
DX: R11.2 Nausea with vomiting, unspecified (principal); E86.0 Dehydration; E05.90 Thyrotoxicosis, unspecified without thyrotoxic crisis or storm; F31.9 Bipolar disorder, unspecified; F17.210 Nicotine dependence, cigarettes, uncomplicated
CPT/HCPCS: 36415; 80048; 80076; 80307; 80320; 81003; 81015; 82962; 83690; 84439; 84443; 85025; 86850; 86900; 86901; 96361; 96374; 99284; J2550; J7030

== ENCOUNTER 2018-10-13 03:18 | Emergency (ER) | payer SELFPAY ==
[2018-10-13] MEDS ORDERED: LIDOCAINE 2% W/EPI 1:200,000 MPF 20 ML VIAL IM ONE (03:27)
[2018-10-13 04:01] LABS: Absolute Lymphocytes (CBC) 1.6 K/uL (0.7-4.9); Basophils % 0.2 % (0-1.3); Hematocrit 38.4 % (39.6-49.0); Lymphocytes % 11.8 % (15.3-44.8); MPV 8.9 fL (7.6-11.3); RBC Red Blood Cell Count 4.18 M/uL (4.33-5.43)
[2018-10-13 04:01] LABS: Barbiturates NEGATIVE (NEGATIVE); Benzodiazepines NEGATIVE (NEGATIVE); Cocaine NEGATIVE (NEGATIVE); METHAMPHETAM NEGATIVE (NEGATIVE); Methadone NEGATIVE (NEGATIVE); Opiates NEGATIVE (NEGATIVE); Phencyclidine NEGATIVE (NEGATIVE); THC Cannibis NEGATIVE (NEGATIVE)
[2018-10-13 04:02] LABS: Protime INR 1.24
[2018-10-13] MEDS ORDERED: TETANUS & DIPHTHERIA TOX,ADULT 0.5 ML VIAL ONE (04:02)
--- NOTE | 2018-10-13 04:33 | ER ---
Nurse's Notes [facility] Name: Elliot Paige Age: 23 yrs Sex: Male : 1995 Arrival Date: 10/13/2018 Time: 03:21 Bed 6 Private MD: Diagnosis: Adjustment disorder with anxiety Presentation: 10/13 03:27 Presenting complaint: [place] [employer] states patient was in custody when he began hitting his lp1 head on counter, patient was put in restraints and continued to hit head in cell and on ground; No LOC; Laceration to forehead noted. Transition of care: patient was not received from another setting of care. Onset of symptoms was October 13, 2018. Risk Assessment: Do you want to hurt yourself or someone else? Patient reports desire/thoughts of hurting themselves or someone else. Provider notified. Other: Patient states "They made me feel suicidal". Initial Sepsis Screen: Does the patient meet any 2 criteria? No. Patient's initial sepsis screen is negative. Does the patient have a suspected source of infection? No. Patient's initial sepsis screen is negative. Care prior to arrival: None. 03:27 Method Of Arrival: Law Enforcement: [place] [employer] lp1 03:27 Acuity: MEGA 2 lp1 Historical: - Allergies: 03:33 No Known Allergies; lp1 - Home Meds: 03:33 None [Active]; lp1 - PMHx: 03:33 Bipolar disorder; Cutter; drug abuse; Seizures; lp1 - PSHx: 03:33 None; lp1 - Immunization history:: Adult Immunizations up to date. - Social history:: Smoking status: Patient uses tobacco products, smokes one-half pack cigarettes per day, Patient uses street drugs, marijuana. - Ebola Screening: : No symptoms or risks identified at this time. Screenin:33 Abuse screen: Denies threats or abuse. Denies injuries from another. Nutritional lp1 screening: No deficits noted. Tuberculosis screening: No symptoms or risk factors identified. Fall Risk None identified. Assessment: 03:33 General: Appears in no apparent distress. Behavior is calm, cooperative. Pain: Denies lp1 pain. Neuro: Level of Consciousness is awake, alert, obeys commands, Oriented to person, place, time, situation, Gait is steady. Cardiovascular: Patient's skin is warm and dry. Respiratory: Respiratory effort is even, unlabored. GI: No signs and/or symptoms were reported involving the gastrointestinal system. : No signs and/or symptoms were reported regarding the genitourinary system. EENT: No signs and/or symptoms were reported regarding the EENT system. Derm: Wound noted forehead Wound is Laceration to middle of forehead, no active bleeding. Musculoskeletal: Circulation, motion, and sensation intact. 04:13 Reassessment: Patient appears in no apparent distress at this time. Patient informed of lp1 process due to SI statements made; Patient states "Yeah, I'll get all of that cleared up, I just had to say that to get out, they wanted to keep me in half-way for 10 days! And the bus doesn't run for another 2 hours". General: Appears Behavior is calm, cooperative. 04:29 Reassessment: Provider at bedside to discuss care with patient; Patient denies SI and lp1 HI. Psych: 03:45 Subjective: Patient's mood is Appropriate Delusions are denied, Hallucinations are lp1 denied Having thoughts of suicide. Plan for suicide is Patient harmed self by hitting head on hard surface of half-way cell and ground. Objective: Patient is cooperative, Speech is normal, Affect is appropriate, Patient has mutilated themselves by Scars noted to chest and abdomen and forearms; Patient states he has not cut since he was 13 years old. Interventions: Removed personal items and placed in bag. Patient placed in hospital gown. Searched person for dangerous items. Urine collected and sent for urine drug test. Belonging list filled out. Suicide Risk Assessment: Sad Person Scale: Sex of patient: Male: Score 1 point. Age of patient: Score 1 point if patient 15-34. Depression: Score 0 point if signs of depression are not present. Previous Attempt: Score 0 point if patient has not previously attempted suicide. Substance Abuse: Score 1 point if patient abuses alcohol or drugs. Rational Thinking: Score 1 point if patient is lacking rational thinking. Social Support: Score 1 point if social support is lacking and/or unavailable. Organized Plan: Score 1 point if patient had a plan in place. Relationship: Score 1 point if patient is , , , or for a single male Chronic Sickness: Score 0 point if patient does not have a chronic illness, debilitating, or severe disorder. TOTAL POINTS: If total points are 7-10, the proposed clinical action is to hospitalize or commit. Implement suicide precautions. Safety Checks: Personal items have been removed. Door is open. No visitors are present at this time. Patient uses marijuana. Vital Signs: 03:32 BP 128 / 88; Pulse 89; Resp 16; Temp 98.2(O); Pulse Ox 98% on R/A; Weight 72.57 kg; lp1 Height 6 ft. 1 in. (185.42 cm); Pain 0/10; 03:32 Body Mass Index 21.11 (72.57 kg, 185.42 cm) lp1 ED Course: 03:21 Patient arrived in ED. ds1 03:27 Nelli Ramos, RN is Primary Nurse. lp1 03:29 Safety checks: Items removed: yes. Door open/sign placed on door: yes. Family/friend oe present: no. Sitter present: Yes. 03:30 Wound care: to laceration located on forehead was irrigated with normal saline. lp1 03:31 Baltazar Levine MD is Attending Physician. gs 03:32 Triage completed. lp1 03:32 Arm band placed on right wrist. lp1 03:33 Patient has correct armband on for positive identification. Valuables inventory done. lp1 Locked in safe. Sitter at bedside. 03:34 Assist provider with laceration repair on forehead that was between 2.6 to 7.5 cm using lp1 sarina. Set up tray. Performed by Baltazar Levine MD Patient tolerated well. Inserted saline lock: 20 gauge in right forearm, using aseptic technique. Blood collected. 03:40 Warm blanket given. oe 03:44 Urine Drug Screen Sent. oe 03:45 Safety checks: Items removed: yes. Door open/sign placed on door: yes. Family/friend oe present: no. Sitter present: Yes. 04:00 Safety checks: Items removed: yes. Door open/sign placed on door: yes. Family/friend oe present: no. Sitter present: Yes. 04:15 Safety checks: Items removed: yes. Door open/sign placed on door: yes. Family/friend oe present: no. Sitter present: Yes. 04:30 Safety checks: Items removed: yes. Door open/sign placed on door: yes. Family/friend oe present: no. Sitter present: Yes. 04:39 IV discontinued, No redness/swelling at site. Pressure dressing applied. lp1 Administered Medications: 03:52 Drug: Lidocaine (2 %) 1 vials Volume: 5 ml; Route: Infiltration; lp1 04:00 Drug: Tetanus-Diphtheria Toxoid Adult 0.5 ml {Rehabilitation Attendant: SI-BONE. Exp: lp1 06/09/2020. Lot #: [id number]. } Route: IM; Site: right deltoid; 04:40 Follow up: Response: No adverse reaction lp1 Outcome: 04:32 Discharge ordered by . gs 04:39 Discharged to home ambulatory. lp1 04:39 Condition: good 04:39 Discharge instructions given to patient, Instructed on discharge instructions, follow up and referral plans. Demonstrated understanding of instructions, follow-up care. 04:39 Patient left the ED. lp1 Signatures: Shilpa Swanson ds1 Nelli Ramos RN RN lp1 Rafael Schultz Gregory, MD MD Corrections: (The following items were deleted from the chart) 04:08 03:46 Safety checks: Items removed: yes. Door open/sign placed on door: yes. oe Family/friend present: no. Sitter present: Yes. oe 04:16 04:09 Safety checks: Items removed: yes. Door open/sign placed on door: yes. oe Family/friend present: no. Sitter present: Yes. oe 04:30 04:23 Safety checks: Items removed: yes. Door open/sign placed on door: yes. oe Family/friend present: no. Sitter present: Yes. oe
--- NOTE | 2018-10-13 04:33 | EDPHYS ---
Physician Documentation [facility] Name: Elliot Paige Age: 23 yrs Sex: Male : 1995 Arrival Date: 10/13/2018 Time: 03:21 Bed 6 Private MD: ED Physician Baltazar Levine HPI: 10/13 03:43 This 23 yrs old Male presents to ER via Law Enforcement with complaints of gs agitation, suicidal ideation. 03:43 The patient presents to the emergency department with suicide ideation, but the patient gs has no formulated plan. Onset: The symptoms/episode began/occurred acutely, yesterday. Past psychiatric history: Prior diagnosis: bipolar disorder. Associated signs and symptoms: Pertinent negatives: abdominal pain, chest pain, hallucinations, homicidal ideation. Severity of symptoms: At their worst the symptoms were mild in the emergency department the symptoms are unchanged. The patient has experienced similar episodes in the past, several times. 03:43 taking by police self injury hit head on concrete no loc sustained hematoma and gs laceration. Historical: - Allergies: 03:33 No Known Allergies; lp1 - Home Meds: 03:33 None [Active]; lp1 - PMHx: 03:33 Bipolar disorder; Cutter; drug abuse; Seizures; lp1 - PSHx: 03:33 None; lp1 - Immunization history:: Adult Immunizations up to date. - Social history:: Smoking status: Patient uses tobacco products, smokes one-half pack cigarettes per day, Patient uses street drugs, marijuana. - Ebola Screening: : No symptoms or risks identified at this time. ROS: 03:43 All other systems are negative. gs Exam: 03:43 Eyes: Pupils equal round and reactive to light, extra-ocular motions intact. Lids and gs lashes normal. Conjunctiva and sclera are non-icteric and not injected. Cornea within normal limits. Periorbital areas with no swelling, redness, or edema. ENT: Nares patent. No nasal discharge, no septal abnormalities noted. Tympanic membranes are normal and external auditory canals are clear. Oropharynx with no redness, swelling, or masses, exudates, or evidence of obstruction, uvula midline. Mucous membranes moist. Neck: Trachea midline, no thyromegaly or masses palpated, and no cervical lymphadenopathy. Supple, full range of motion without nuchal rigidity, or vertebral point tenderness. No Meningismus. Chest/axilla: Normal chest wall appearance and motion. Nontender with no deformity. No lesions are appreciated. Cardiovascular: Regular rate and rhythm with a normal S1 and S2. No gallops, murmurs, or rubs. Normal PMI, no JVD. No pulse deficits. Respiratory: Lungs have equal breath sounds bilaterally, clear to auscultation and percussion. No rales, rhonchi or wheezes noted. No increased work of breathing, no retractions or nasal flaring. Abdomen/GI: Soft, non-tender, with normal bowel sounds. No distension or tympany. No guarding or rebound. No evidence of tenderness throughout. Back: No spinal tenderness. No costovertebral tenderness. Full range of motion. MS/ Extremity: Pulses equal, no cyanosis. Neurovascular intact. Full, normal range of motion. Neuro: Awake and alert, GCS 15, oriented to person, place, time, and situation. Cranial nerves II-XII grossly intact. Motor strength 5/5 in all extremities. Sensory grossly intact. Cerebellar exam normal. Normal gait. 03:43 Constitutional: The patient appears alert, awake. 03:43 Head/face: Noted is a laceration(s), that is superficial, 3 cm(s), of the top of head. 03:43 Psych: Behavior/mood is pleasant, Affect is calm, Patient having thoughts of suicide. Denies suicidal plan. 03:43 ECG was reviewed by the Attending Physician. Vital Signs: 03:32 BP 128 / 88; Pulse 89; Resp 16; Temp 98.2(O); Pulse Ox 98% on R/A; Weight 72.57 kg; lp1 Height 6 ft. 1 in. (185.42 cm); Pain 0/10; 03:32 Body Mass Index 21.11 (72.57 kg, 185.42 cm) lp1 Laceration: 03:43 Wound Repair of 3cm ( 1.2in ) subcutaneous laceration to top of head. Distal gs neuro/vascular/tendon intact. Anesthesia: Local anesthetic administered with 2 mls of 1% lidocaine w/ Epi. Wound prep: Simple cleansing with betadine, Wound irrigation by nurse. Skin closed with 3 Beverley using staple gun. Patient tolerated well. MDM: 03:31 Patient medically screened. 03:43 Differential diagnosis: drug withdrawal. acute psychotic break, psychosis secondary to non-compliance. Data reviewed: vital signs, nurses notes. Response to treatment: the patient's symptoms have markedly improved after treatment. 04:30 ED course: pt states is not suicidal, was trying to evade police as has 10 day stint in snf. 10/13 03:32 Order name: Acetaminophen 10/13 03:32 Order name: Basic Metabolic Panel 10/13 03:32 Order name: CBC with Diff 10/13 03:32 Order name: ETOH Level; Complete Time: 04:32 10/13 03:32 Order name: Hepatic Function 10/13 03:32 Order name: PT-INR; Complete Time: 04:32 10/13 03:32 Order name: Salicylate; Complete Time: 04:32 10/13 03:32 Order name: Urine Drug Screen; Complete Time: 04:32 10/13 03:33 Order name: Acetaminophen Level [facility] 10/13 03:34 Order name: Basic Metabolic Panel [facility] 10/13 03:34 Order name: CBC with Automated Diff; Complete Time: 04:32 [facility] 10/13 03:44 Order name: Urine Dipstick--Ancillary (enter results) [facility] 10/13 03:32 Order name: EKG; Complete Time: 03:35 10/13 03:32 Order name: EKG - Nurse/Tech; Complete Time: 03:49 10/13 03:32 Order name: IV Saline Lock; Complete Time: 03:49 10/13 03:32 Order name: Labs collected and sent; Complete Time: 03:49 10/13 03:32 Order name: Urine Dipstick-Ancillary (obtain specimen); Complete Time: 03:44 EC:43 Rate is 77 beats/min. Rhythm is regular. FL interval is normal. No Q waves. T waves are gs Normal. No ST changes noted. Clinical impression: Normal ECG. Interpreted by me. Administered Medications: 03:52 Drug: Lidocaine (2 %) 1 vials Volume: 5 ml; Route: Infiltration; lp1 04:00 Drug: Tetanus-Diphtheria Toxoid Adult 0.5 ml {Diesel Pile Driver Operator: Mr. Number. Exp: lp1 06/09/2020. Lot #: [id number]. } Route: IM; Site: right deltoid; 04:40 Follow up: Response: No adverse reaction lp1 Disposition: 10/13/18 04:32 Discharged to Home. Impression: Adjustment disorder with anxiety. - Condition is Stable. - Discharge Instructions: Adjustment Disorder, Adult. - Medication Reconciliation Form, Thank You Letter, Antibiotic Education, Prescription Opioid Use form. - Follow up: Private Physician; When: 1 - 2 days; Reason: Re-evaluation by your physician. Signatures: Dispatcher [employer] EDNelli Siegel RN RN lp1 Baltazar Levine MD MD Corrections: (The following items were deleted from the chart) 04:39 04:32 10/13/2018 04:32 Discharged to Home. Impression: Adjustment disorder with lp1 anxiety. Condition is Stable. Forms are Medication Reconciliation Form, Thank You Letter, Antibiotic Education, Prescription Opioid Use. Follow up: Private Physician; When: 1 - 2 days; Reason: Re-evaluation by your physician. gs
[2018-10-13 04:41] LABS: ALT/SGPT 19 U/L (12-78); AST/SGOT 23 U/L (15-37); Albumin 3.8 g/dL (3.4-5.0); Alkaline Phosphatase 69 U/L (45-117); BUN Blood Urea Nitrogen 10 mg/dL (7-18); Bicarbonate 25 mmol/L (21-32); Bilirubin Direct 0.1 mg/dL (0-0.2); Bilirubin Total 0.5 mg/dL (0.2-1.0); Glucose Level 92 mg/dL (74-106); Potassium 3.6 mmol/L (3.5-5.1); Protein, Total 7.5 g/dL (6.4-8.2); Sodium Level 141 mmol/L (136-145)
[2018-10-13 05:50] LABS: Urine Blood NEGATIVE (NEG); Urine Glucose NEGATIVE (NEG); Urine Protein TRACE (NEG); Urine Specific Gravity >1.030 (1.005-1.030)
--- NOTE | 2018-10-13 11:36 | EKG ---
Test Date: 2018-10-13 Test Time: 03:42:42 Architect Marine: ROSANNA MEASUREMENT RESULTS: Intervals: Rate: 77 KS: 140 QRSD: 98 QT: 380 QTc: 430 [place]: P: 77 KS: 140 QRS: 80 T: 70 INTERPRETIVE STATEMENTS: Normal sinus rhythm Septal infarct, age undetermined Abnormal ECG Compared to ECG 05/12/2018 04:55:42 Myocardial infarct finding now present Atrial premature complex(es) no longer present Short [place] interval no longer present Prolonged QT interval no longer present Electronically Signed On 10-13-18 11:34:34 CDT by Lucas Alvarez
== END 2018-10-13 04:39 | disposition home or self-care (01) ==
LOC: ER 03:18
PROC: 0JQ00ZZ Repair Scalp Subcutaneous Tissue and Fascia, Open Approach (ICD-10-PCS; principal; 2018-10-13)
DX: S01.01XA Laceration without foreign body of scalp, initial encounter (principal); W22.8XXA Striking against or struck by other objects, initial encounter; F43.22 Adjustment disorder with anxiety; R45.851 Suicidal ideations; F31.9 Bipolar disorder, unspecified; F17.210 Nicotine dependence, cigarettes, uncomplicated
CPT/HCPCS: 36415; 80048; 80076; 80307; 80320; 80329; 81003; 85025; 85610; 90714; 93005; 99285

== ENCOUNTER 2018-11-04 22:05 | Emergency (ER) | payer SELFPAY ==
--- NOTE | 2018-11-04 22:35 | ER ---
Nurse's Notes [facility] Name: Elliot Paige Age: 23 yrs Sex: Male : 1995 Arrival Date: 11/04/2018 Time: 22:06 Bed 12 Private MD: Diagnosis: Encounter for examination and observation for other reasons-assisted clearance Presentation: 11/04 22:15 Presenting complaint: Patient states: he was in city assisted and to shorten his assisted time bb he scratched his torso all over with a nail. Transition of care: assisted. Onset of symptoms was November 04, 2018. Risk Assessment: Do you want to hurt yourself or someone else? Patient reports no desire to harm self or others. Initial Sepsis Screen: Does the patient meet any 2 criteria? No. Patient's initial sepsis screen is negative. Does the patient have a suspected source of infection? No. Patient's initial sepsis screen is negative. Care prior to arrival: None. 22:15 Method Of Arrival: Law Enforcement: Luis SMITH bb 22:15 Acuity: MEGA 5 bb Historical: - Allergies: 22:16 No Known Allergies; bb - Home Meds: 22:16 None [Active]; bb - PMHx: 22:16 Bipolar disorder; Cutter; drug abuse; Seizures; bb - PSHx: 22:16 None; bb - Immunization history:: Adult Immunizations up to date. - Social history:: Smoking status: Patient uses tobacco products, smokes one-half pack cigarettes per day, Patient/guardian denies using alcohol, street drugs. - Ebola Screening: : No symptoms or risks identified at this time. Screenin:18 Abuse screen: Denies threats or abuse. Nutritional screening: No deficits noted. bb Tuberculosis screening: No symptoms or risk factors identified. Fall Risk None identified. Assessment: 22:18 General: Appears in no apparent distress. slender, Behavior is cooperative. Pain: bb Denies pain. Neuro: Level of Consciousness is awake, alert, obeys commands, Oriented to person, place, time, situation. Cardiovascular: No deficits noted. Respiratory: Respiratory effort is even, unlabored, Respiratory pattern is regular. GI: No signs and/or symptoms were reported involving the gastrointestinal system. Derm: multiple linear scratches over entire abdomen, anterior neck, right arm. Musculoskeletal: Circulation, motion, and sensation intact. 22:42 Reassessment: No changes from previously documented assessment. pt verbalized bb understanding of and agrees to plan of care discharge instructions given pt released to PD and ambulated with steady gait. Vital Signs: 22:16 BP 135 / 84; Pulse 71; Resp 16 S; Temp 98.8(O); Pulse Ox 98% on R/A; Weight 72.57 kg bb (R); Height 6 ft. 1 in. (185.42 cm) (R); Pain 0/10; 22:16 Body Mass Index 21.11 (72.57 kg, 185.42 cm) bb ED Course: 22:06 Patient arrived in ED. ds1 22:16 Triage completed. bb 22:16 Arm band placed on Patient placed in an exam room, accompanied by PD. bb 22:18 Patient has correct armband on for positive identification. Call light in reach. pt bb handcuffed PD at bedside. 22:25 Som Easlye is Primary Nurse. 22:26 Branden Thomas PA is PHCP. cp 22:26 Baltazar Levine MD is Attending Physician. cp 22:43 No provider procedures requiring assistance completed. Patient did not have IV access bb during this emergency room visit. Administered Medications: No medications were administered Outcome: 22:35 Discharge ordered by . cp 22:43 Discharged to Law Enforcement bb 22:43 Condition: stable 22:43 Discharge instructions given to patient, Instructed on discharge instructions, follow up and referral plans. Demonstrated understanding of instructions, follow-up care. 22:43 Patient left the ED. bb Signatures: Shilpa Swanson ds1 Marielle Najera RN RN bb Branden Thomas PA PA cp Som Easley
--- NOTE | 2018-11-04 22:36 | EDPHYS ---
Physician Documentation [facility] Name: Elliot Paige Age: 23 yrs Sex: Male : 1995 Arrival Date: 11/04/2018 Time: 22:06 Bed 12 Private MD: ED Physician Baltazar Levine HPI: 11/04 22:27 This 23 yrs old Male presents to ER via Law Enforcement with complaints of cp Scratches. 22:27 The patient has a laceration related to: intentional and there are no complicating cp factors. The injury was self inflicted. The laceration(s) is(are) located on the chest, abdomen, right arm, left arm and neck. Onset: The symptoms/episode began/occurred today. Patient in custody of law enforcement. Reports he intentionally used nail to cut himself to shorten sentence. Patient does not report suicidal or homicidal intentions. Historical: - Allergies: 22:16 No Known Allergies; bb - Home Meds: 22:16 None [Active]; bb - PMHx: 22:16 Bipolar disorder; Cutter; drug abuse; Seizures; bb - PSHx: 22:16 None; bb - Immunization history:: Adult Immunizations up to date. - Social history:: Smoking status: Patient uses tobacco products, smokes one-half pack cigarettes per day, Patient/guardian denies using alcohol, street drugs. - Ebola Screening: : No symptoms or risks identified at this time. ROS: 22:30 Constitutional: Negative for fever. cp 22:30 Cardiovascular: Negative for chest pain. 22:30 Respiratory: Negative for shortness of breath, wheezing. 22:30 Skin: Positive for laceration(s), of the neck and left arm and right arm and abdomen and chest, Negative for heavy bleeding. 22:30 Neuro: Negative for altered mental status. 22:30 Psych: Negative for auditory hallucinations, visual hallucinations, homicidal ideation, suicide gesture, suicidal ideation. 22:30 All other systems are negative. Exam: 22:31 Head/Face: Normocephalic, atraumatic. cp 22:31 Constitutional: The patient appears in no acute distress, alert, awake, non-toxic, well developed, well nourished. 22:31 Eyes: Periorbital structures: appear normal, Conjunctiva: normal, no exudate, no injection, Lids and lashes: appear normal, bilaterally. 22:31 ENT: External ear(s): are unremarkable, Nose: is normal, Mouth: is normal, Posterior pharynx: Airway: no evidence of obstruction, patent. 22:31 Chest/axilla: Palpation: is normal, no crepitus, no tenderness. 22:31 Cardiovascular: Rate: normal, Rhythm: regular. 22:31 Respiratory: the patient does not display signs of respiratory distress, Respirations: normal, no use of accessory muscles. 22:31 Abdomen/GI: Exam negative for discomfort, distension, guarding. 22:31 Skin: injury, laceration(s), of the neck and left arm and right arm and abdomen and chest, that can be described as no foreign body, linear, without bleeding, superficial. 22:31 Neuro: Orientation: to person, place \T\ time. Mentation: is normal, Motor: moves all fours, strength is normal. Vital Signs: 22:16 BP 135 / 84; Pulse 71; Resp 16 S; Temp 98.8(O); Pulse Ox 98% on R/A; Weight 72.57 kg bb (R); Height 6 ft. 1 in. (185.42 cm) (R); Pain 0/10; 22:16 Body Mass Index 21.11 (72.57 kg, 185.42 cm) bb MDM: 22:34 Differential diagnosis: suicidal ideation, cellulitis. cp 22:35 Patient medically screened. 22:35 Data reviewed: vital signs, nurses notes, and as a result, I will discharge patient. 22:35 Counseling: I had a detailed discussion with the patient and/or guardian regarding: the cp historical points, exam findings, and any diagnostic results supporting the discharge/admit diagnosis, to return to the emergency department if symptoms worsen or persist or if there are any questions or concerns that arise at home. 22:35 ED course: VSS. Patient reports last tetanus was 2 months ago given in [facility] ED. cp Administered Medications: No medications were administered Disposition: 22:45 Chart complete. cp 11/05 06:43 Co-signature as Attending Physician, Baltazar Levine MD. Disposition: 11/04/18 22:35 Discharged to Law Enforcement. Impression: Encounter for examination and observation for other reasons - residential clearance. - Condition is Stable. - Medication Reconciliation Form, Thank You Letter, Antibiotic Education, Prescription Opioid Use form. - Follow up: Emergency Department; When: As needed; Reason: Worsening of condition. - Problem is new. - Symptoms have improved. Signatures: Marielle Najera RN RN Branden Camejo PA PA cp Starr, Gregory, MD MD gs Corrections: (The following items were deleted from the chart) 11/04 22:43 22:35 11/04/2018 22:35 Discharged to Law Enforcement. Impression: Encounter for bb examination and observation for other reasons - residential clearance. Condition is Stable. Forms are Medication Reconciliation Form, Thank You Letter, Antibiotic Education, Prescription Opioid Use. Follow up: Emergency Department; When: As needed; Reason: Worsening of condition. Problem is new. Symptoms have improved. cp
== END 2018-11-04 22:43 ==
LOC: ER 22:05
DX: S31.119A Laceration without foreign body of abdominal wall, unspecified quadrant without penetration into peritoneal cavity, initial encounter (principal); W45.0XXA Nail entering through skin, initial encounter; Y93.89 Activity, other specified; Y92.149 Unspecified place in prison as the place of occurrence of the external cause; Y99.8 Other external cause status; Z04.89 Encounter for examination and observation for other specified reasons; F17.210 Nicotine dependence, cigarettes, uncomplicated
CPT/HCPCS: 99281

== ENCOUNTER 2018-11-25 21:15 | Emergency (ER) | payer SELFPAY ==
[2018-11-25] MEDS ORDERED: NA CHLORIDE 0.9% 1,000 ML ONE (22:56)
[2018-11-25 23:07] LABS: ALT/SGPT 20 U/L (12-78); AST/SGOT 22 U/L (15-37); Albumin 4.3 g/dL (3.4-5.0); Alkaline Phosphatase 69 U/L (45-117); BUN Blood Urea Nitrogen 12 mg/dL (7-18); Bicarbonate 28 mmol/L (21-32); Bilirubin Direct 0.2 mg/dL (0-0.2); Bilirubin Total 0.6 mg/dL (0.2-1.0); Glucose Level 81 mg/dL (74-106); Potassium 3.5 mmol/L (3.5-5.1); Protein, Total 7.5 g/dL (6.4-8.2); Sodium Level 141 mmol/L (136-145)
[2018-11-25 23:17] LABS: Absolute Lymphocytes (CBC) 2.7 K/uL (0.7-4.9); Basophils % 0.3 % (0-1.3); Hematocrit 40.1 % (39.6-49.0); MPV 8.9 fL (7.6-11.3); RBC Red Blood Cell Count 4.39 M/uL (4.33-5.43)
[2018-11-25 23:22] LABS: Protime INR 1.07
[2018-11-25 23:27] LABS: Barbiturates NEGATIVE (NEGATIVE); Benzodiazepines NEGATIVE (NEGATIVE); Cocaine NEGATIVE (NEGATIVE); METHAMPHETAM POSITIVE (NEGATIVE); Methadone NEGATIVE (NEGATIVE); Opiates NEGATIVE (NEGATIVE); Phencyclidine NEGATIVE (NEGATIVE); THC Cannibis POSITIVE (NEGATIVE)
--- NOTE | 2018-11-25 23:52 | ER ---
Nurse's Notes [facility] Name: Elliot Paige Age: 23 yrs Sex: Male : 1995 Arrival Date: 11/25/2018 Time: 21:21 Bed 28 Private MD: Diagnosis: Vomiting;Drug Abuse Presentation: 11/25 21:28 Presenting complaint: Patient states: "2 months ago I started interacting with this aj1 girl and since then my health has been declining. 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 Last use was one week ago. Transition of care: patient was not received from another setting of care. Onset of symptoms was 2018. Risk Assessment: Do you want to hurt yourself or someone else? Patient reports no desire to harm self or others. Initial Sepsis Screen: Does the patient meet any 2 criteria? No. Patient's initial sepsis screen is negative. Does the patient have a suspected source of infection? No. Patient's initial sepsis screen is negative. Care prior to arrival: None. 21:28 Method Of Arrival: Ambulatory [facility] 21:28 Acuity: MEGA 4 aj Triage Assessment: 21:34 General: Appears in no apparent distress. unkempt, Behavior is cooperative, anxious. aj1 Pain: Complains of pain in abdomen Pain currently is 7 out of 10 on a pain scale. Neuro: Level of Consciousness is awake, alert, obeys commands. Cardiovascular: Patient's skin is warm and dry. Respiratory: Airway is patent Respiratory effort is even, unlabored, Respiratory pattern is regular, symmetrical. GI: Reports upper abdominal pain. Historical: - Allergies: 21:34 No Known Allergies; aj1 - Home Meds: 21:34 None [Active]; aj1 - PMHx: 21:34 Bipolar disorder; Cutter; drug abuse; Seizures; aj1 - PSHx: 21:34 None; aj1 - Immunization history:: Flu vaccine is up to date. - Social history:: Smoking status: Patient uses tobacco products, 5 cigarettes per day, Patient uses street drugs, Methamphetamine (Meth) Patient/guardian denies using alcohol. - Ebola Screening: : Patient denies travel to an Ebola-affected area in the 21 days before illness onset. Screenin:25 Abuse screen: Denies threats or abuse. Nutritional screening: No deficits noted. tr5 Tuberculosis screening: No symptoms or risk factors identified. Fall Risk None identified. Assessment: 22:25 General: Appears in no apparent distress. Behavior is calm, cooperative. Pain: tr5 Complains of pain in abdomen Pain does not radiate. Quality of pain is described as aching, crampy, Pain began gradually. Neuro: Level of Consciousness is awake, alert, obeys commands, Oriented to person, place, time, Electric Meter Technician are equal bilaterally Moves all extremities. Cardiovascular: Heart tones present Capillary refill < 3 seconds Pulses are all present. Edema is absent. Respiratory: Airway is patent Respiratory effort is even, unlabored, Respiratory pattern is regular, symmetrical. GI: Reports nausea, vomiting. : No signs and/or symptoms were reported regarding the genitourinary system. EENT: No signs and/or symptoms were reported regarding the EENT system. Derm: No signs and/or symptoms reported regarding the dermatologic system. Musculoskeletal: Capillary refill < 3 seconds, Range of motion: intact in all extremities. 23:20 Reassessment: Patient appears in no apparent distress at this time. Patient and/or tr5 family updated on plan of care and expected duration. Pain level reassessed. Patient is alert, oriented x 3, equal unlabored respirations, skin warm/dry/pink. Vital Signs: 21:34 BP 122 / 92; Pulse 84; Resp 18; Temp 98.4; Pulse Ox 97% on R/A; Weight 68.04 kg (R); aj1 Height 6 ft. 1 in. (185.42 cm) (R); 23:00 BP 129 / 74; Pulse 63; Resp 16; Pulse Ox 99% on R/A; tr5 21:34 Body Mass Index 19.79 (68.04 kg, 185.42 cm) aj1 ED Course: 21:21 Patient arrived in ED. cf2 21:33 Triage completed. aj1 21:34 Arm band placed on Patient placed in an exam room. aj1 21:36 Pepito Carrera, RYAN is Primary Nurse. tr5 21:45 Cheikh Garduno PA is PHCP. [facility] 21:45 Baltazar Levine MD is Attending Physician. [facility] 22:20 Inserted saline lock: 20 gauge in left forearm, using aseptic technique. tr5 22:25 Bed in low position. Call light in reach. Side rails up X 1. tr5 22:25 Initial lab(s) drawn, by me, sent to lab. tr5 22:41 EKG done, by ED staff. tr5 11/26 00:04 No provider procedures requiring assistance completed. IV discontinued. tr5 Administered Medications: 11/25 23:03 Drug: NS 0.9% 1000 ml Route: IV; Rate: 1 bolus; Site: left forearm; tr5 Outcome: 23:51 Discharge ordered by . valdez 11/26 00:04 Discharged to home ambulatory, with friend. tr5 Condition: stable Discharge instructions given to patient, friend, Instructed on discharge instructions, follow up and referral plans. medication usage, Demonstrated understanding of instructions, follow-up care, medications. 00:05 Patient left the ED. tr5 Signatures: Davina Martin RN RN aj1 Cheikh Garduno PA PA jmm Rodriguez, Tommie, RN RN tr5 Tatyana Kuhn cf2 Corrections: (The following items were deleted from the chart) 11/25 21:36 21:28 Presenting complaint: Patient states: "2 months ago I started interacting with aj1 this girl and since then my health has been declining. I just found out that she has HIV so I just need to know if I have it" aj1
--- NOTE | 2018-11-25 23:52 | EDPHYS ---
Physician Documentation [facility] Name: Elliot Paige Age: 23 yrs Sex: Male : 1995 Arrival Date: 11/25/2018 Time: 21:21 Bed 28 Private MD: ED Physician Baltazar Levine HPI: 11/25 22:30 This 23 yrs old Male presents to ER via Ambulatory with complaints of jmm Nausea/Vomiting, Abdominal Pain. 22:30 The patient presents to the emergency department with nausea, vomiting. Onset: The jmm symptoms/episode began/occurred gradually, 1 week(s) ago. Possible causes: unknown. The symptoms are aggravated by nothing. The symptoms are alleviated by nothing. This is a 23 year old male with a history of bipolar disorder, seizures, that presents to the ED with complaints of decreased appetite, vomiting, weight loss over the past month. Patient is concerned he may have contracted HIV from a sexual partner. Patient states he has been with her for the past 2 months. Denies fever, denies chills. . Historical: - Allergies: 21:34 No Known Allergies; aj1 - Home Meds: 21:34 None [Active]; aj1 - PMHx: 21:34 Bipolar disorder; Cutter; drug abuse; Seizures; aj1 - PSHx: 21:34 None; aj1 - Immunization history:: Flu vaccine is up to date. - Social history:: Smoking status: Patient uses tobacco products, 5 cigarettes per day, Patient uses street drugs, Methamphetamine (Meth) Patient/guardian denies using alcohol. - Ebola Screening: : Patient denies travel to an Ebola-affected area in the 21 days before illness onset. ROS: 22:30 Cardiovascular: Negative for chest pain, palpitations, and edema, Respiratory: Negative jmm for shortness of breath, cough, wheezing, and pleuritic chest pain. 22:30 Constitutional: Positive for malaise. 22:30 Abdomen/GI: Positive for nausea and vomiting. 22:30 All other systems are negative. Exam: 22:30 Constitutional: This is a well developed, well nourished patient who is awake, alert, jmm and in no acute distress. Head/Face: atraumatic. Eyes: EOMI, no conjunctival erythema appreciated ENT: Moist Mucus Membranes Neck: Trachea midline, Supple Chest/axilla: Normal chest wall appearance and motion. Cardiovascular: Regular rate and rhythm. No edema appreciated Respiratory: Normal respirations, no respiratory distress appreciated 22:30 Back: Normal ROM Skin: General appearance color normal MS/ Extremity: Moves all extremities, no obvious deformities appreciated, no edema noted to the lower extremities Neuro: Awake and alert, normal gait Psych: Behavior is normal, Mood is normal, Patient is cooperative and pleasant 22:30 Abdomen/GI: Inspection: abdomen appears normal, Bowel sounds: normal, Palpation: abdomen is soft and non-tender, in all quadrants. Vital Signs: 21:34 BP 122 / 92; Pulse 84; Resp 18; Temp 98.4; Pulse Ox 97% on R/A; Weight 68.04 kg (R); aj1 Height 6 ft. 1 in. (185.42 cm) (R); 23:00 BP 129 / 74; Pulse 63; Resp 16; Pulse Ox 99% on R/A; tr5 21:34 Body Mass Index 19.79 (68.04 kg, 185.42 cm) aj1 MDM: 22:14 Patient medically screened. [facility] 23:49 Data reviewed: vital signs, nurses notes. Counseling: I had a detailed discussion with [facility] the patient and/or guardian regarding: the historical points, exam findings, and any diagnostic results supporting the discharge/admit diagnosis, lab results, the need for outpatient follow up, to return to the emergency department if symptoms worsen or persist or if there are any questions or concerns that arise at home. 23:49 ED course: Abdomen is non tender to palpation. I discussed UDS findings with the [facility] patient along with need for further STI testing. Patient was otherwise given strict return precautions. Patient understood and agrees with the plan of care. . 11/25 22:14 Order name: Acetaminophen; Complete Time: 23:19 [facility] 11/25 22:14 Order name: Basic Metabolic Panel; Complete Time: 23:19 [facility] 11/25 22:14 Order name: CBC with Diff; Complete Time: 23:31 [facility] 11/25 22:14 Order name: ETOH Level; Complete Time: 23:19 [facility] 11/25 22:14 Order name: Hepatic Function; Complete Time: 23:19 [facility] 11/25 22:14 Order name: PT-INR; Complete Time: 23:31 [facility] 11/25 22:14 Order name: Ptt, Activated; Complete Time: 23:31 [facility] 11/25 22:14 Order name: Salicylate; Complete Time: 23:31 [facility] 11/25 22:14 Order name: Urine Drug Screen; Complete Time: : [facility] 11/25 22:14 Order name: EKG; Complete Time: 22:16 [facility] 11/25 22:14 Order name: EKG - Nurse/Tech; Complete Time: :32 [facility] 11/25 22:14 Order name: IV Saline Lock; Complete Time: : [facility] 11/25 22:14 Order name: Labs collected and sent; Complete Time: 22:32 [facility] 11/25 22:14 Order name: Urine Dipstick-Ancillary (obtain specimen); Complete Time: 23:03 [facility] 11/25 23:32 Order name: PO challenge; Complete Time: 23:37 [facility] Administered Medications: 23:03 Drug: NS 0.9% 1000 ml Route: IV; Rate: 1 bolus; Site: left forearm; tr5 Disposition: 11/25/18 23:51 Discharged to Home. Impression: Vomiting, Drug Abuse. - Condition is Stable. - Discharge Instructions: Nausea and Vomiting, Adult. - Prescriptions for Zofran ODT 4 mg Oral tablet,disintegrating - place 1 tablet by TRANSLINGUAL route every 4-6 hours; 20 tablet. - Medication Reconciliation Form, Thank You Letter, Antibiotic Education, Prescription Opioid Use form. - Follow up: Private Physician; When: 2 - 3 days; Reason: Recheck today's complaints, Continuance of care, Re-evaluation by your physician. Addendum: 11/29/2018 14:48 Co-signature as Attending Physician, Baltazar Levine MD. g s Signatures: Dispatcher [employer] EDDavina Kunz RN RN aj1 Cheikh Garduno PA PA Baltazar Israel MD MD gs Rodriguez, Tommie RN RN tr5 Corrections: (The following items were deleted from the chart) 11/26 00:05 11/25 23:51 11/25/2018 23:51 Discharged to Home. Impression: Vomiting; Drug Abuse. tr5 Condition is Stable. Forms are Medication Reconciliation Form, Thank You Letter, Antibiotic Education, Prescription Opioid Use. Follow up: Private Physician; When: 2 - 3 days; Reason: Recheck today's complaints, Continuance of care, Re-evaluation by your physician. valdez
[2018-11-26 00:37] VITALS: TEMP 98.4
[2018-11-26 00:38] VITALS: BP 129/74; O2SAT 99
--- NOTE | 2018-11-26 07:19 | EKG ---
Test Date: 2018-11-25 Test Time: 22:39:37 Pole Climber: TR MEASUREMENT RESULTS: Intervals: Rate: 64 WV: 118 QRSD: 96 QT: 430 QTc: 443 [place]: P: 82 WV: 118 QRS: 86 T: 70 INTERPRETIVE STATEMENTS: Normal sinus rhythm Normal ECG Compared to ECG 10/13/2018 03:42:42 Myocardial infarct finding no longer present Electronically Signed On 11-26-18 07:18:27 CDT by Pradeep Alves
== END 2018-11-26 00:05 | disposition home or self-care (01) ==
LOC: ER 21:15
DX: F15.10 Other stimulant abuse, uncomplicated (principal)
CPT/HCPCS: 36415; 80048; 80076; 80307; 80320; 80329; 85025; 85610; 85730; 93005; 99284; J7030

== ENCOUNTER 2019-06-26 07:41 | Emergency (ER) | payer SELFPAY ==
[2019-06-26] MEDS ORDERED: ONDANSETRON 4 MG/2 ML VIAL ONE (08:02)
[2019-06-26] MEDS ORDERED: MORPHINE 4 MG/ML SYR ONE (08:02)
--- NOTE | 2019-06-26 09:00 | ER ---
Nurse's Notes [facility] Name: Elliot Paige Age: 23 yrs Sex: Male : 1995 Arrival Date: 06/26/2019 Time: 07:43 Bed 2 Private MD: Diagnosis: Epididymitis Presentation: 06/25 07:20 Chief complaint: EMS states: c/o left testicle swelling started last night and today sv the swelling has increased. c/o abd pain. BP 122/71 HR-90 RR-18 100% RA. Coronavirus screen: Proceed with normal triage. Patient denies a cough. Patient denies shortness of breath or difficulty breathing. Patient denies measured and/or subjective temperature greater than 100.4F prior to today's visit. Patient denies travel on a cruise ship or to a country the [facility] currently lists as an affected area. Patient denies contact with known and/or suspected case of COVID-19. Ebola Screen: No symptoms or risks identified at this time. Initial Sepsis Screen: Does the patient meet any 2 criteria? No. Patient's initial sepsis screen is negative. Does the patient have a suspected source of infection? Yes: Other: testicle swelling. Risk Assessment: Do you want to hurt yourself or someone else? Patient reports no desire to harm self or others. Onset of symptoms was June 25, 2019. 07:20 Method Of Arrival: EMS: [facility] sv 07:20 Acuity: MEGA 3 sv Triage Assessment: 07:20 General: Appears in no apparent distress. uncomfortable, slender, Behavior is calm, sv cooperative, appropriate for age. Pain: Complains of pain in left testicle Pain currently is 10 out of 10 on a pain scale. Neuro: Level of Consciousness is awake, alert, obeys commands, Oriented to person, place, time, situation, Moves all extremities. Full function Gait is steady. Respiratory: Airway is patent Respiratory effort is even, unlabored, Respiratory pattern is regular, symmetrical. : Reports discharge, from penis that is malodorous. Derm: Skin is pink, warm \T\ dry. Historical: - Allergies: 07:51 No Known Allergies; sv - PMHx: 07:51 Bipolar disorder; Cutter; drug abuse; Seizures; sv - PSHx: 07:51 None; sv - Immunization history:: Adult Immunizations up to date. - Family history:: not pertinent. - Social history:: Smoking status: . - Hospitalizations: : No recent hospitalization is reported. Screenin:30 Abuse screen: Denies threats or abuse. Denies injuries from another. Nutritional sv screening: No deficits noted. Tuberculosis screening: No symptoms or risk factors identified. Fall Risk None identified. Assessment: 08:35 Reassessment: Patient appears in no apparent distress at this time. No changes from sv previously documented assessment. Patient and/or family updated on plan of care and expected duration. Pain level reassessed. Patient is alert, oriented x 3, equal unlabored respirations, skin warm/dry/pink. 09:26 Reassessment: Pt up for discharge, but waiting on IM shot time. sv 09:43 Reassessment: Patient appears in no apparent distress at this time. No changes from sv previously documented assessment. Patient and/or family updated on plan of care and expected duration. Pain level reassessed. Patient is alert, oriented x 3, equal unlabored respirations, skin warm/dry/pink. Vital Signs: 07:20 BP 121 / 81; Pulse 96; Resp 16; Temp 100.8; Pulse Ox 100% ; sv 08:57 BP 104 / 60; Pulse 91; Resp 16; Pulse Ox 100% ; sv 09:20 Pain 5/10; sv 09:43 BP 102 / 65; Pulse 88; Resp 16; Pulse Ox 99% ; sv ED Course: 07:30 Patient has correct armband on for positive identification. Placed in gown. Bed in low sv position. Call light in reach. Pulse ox on. NIBP on. Door closed. Warm blanket given. Head of bed elevated. 07:30 Arm band placed on. sv 07:43 Patient arrived in ED. rn 07:43 Elmer Sidhu MD is Attending Physician. rn 07:48 Danita Schumacher RN is Primary Nurse. sv 07:51 Triage completed. sv 08:15 US Scrotum Testicles In Process Unspecified. EDMS 08:30 Inserted saline lock: 20 gauge in right antecubital area, using aseptic technique. sv Flushed right antecubital with 5 ml normal saline. 09:26 No provider procedures requiring assistance completed. IV discontinued, intact, sv bleeding controlled, No redness/swelling at site. Pressure dressing applied. Administered Medications: 08:35 Drug: Zofran (Ondansetron) 4 mg Route: IVP; Site: right antecubital; sv 09:20 Follow up: Response: No adverse reaction sv 08:37 Drug: morphine 4 mg Route: IVP; Site: right antecubital; sv 09:20 Follow up: Pain 5/10 Adult; Response: No adverse reaction; Pain is decreased; RASS: sv Drowsy (-1) 09:21 Drug: Rocephin (cefTRIAXone) 250 mg Route: IM; Site: right deltoid; sv 09:43 Follow up: Response: No adverse reaction sv 09:21 Drug: Flagyl 2 grams Route: PO; sv 09:43 Follow up: Response: No adverse reaction sv Outcome: 09:00 Discharge ordered by . rn 09:43 Discharged to home ambulatory. sv 09:43 Condition: stable 09:43 Discharge instructions given to patient, Instructed on discharge instructions, follow up and referral plans. medication usage, safe sex practices, Demonstrated understanding of instructions, follow-up care, medications, Prescriptions given X 2. 09:43 Patient left the ED. sv Signatures: Dispatcher [employer] Danita Jason, RYAN RN Elmer Ling MD MD rn
--- NOTE | 2019-06-26 09:01 | RAD REPORT ---
EXAM DESCRIPTION: US - Scrotum Testicles - 06/26/2019 8:14 am CLINICAL HISTORY: Testicular pain COMPARISON: None FINDINGS: Right testicle measures 4.6 x 2.5 x 3 centimeters. Echotexture is homogeneous. Normal bloo d flow Left testicle measures 4.9 x 2.4 x 2.4 centimeters. Echotexture is homogeneous. Normal blood flow The left epididymis is enlarged with increased blood flow. Right epididymis is normal in size and ech otexture and blood flow IMPRESSION: Left epididymitis
--- NOTE | 2019-06-26 09:01 | EDPHYS ---
Physician Documentation [facility] Name: Elliot Paige Age: 23 yrs Sex: Male : 1995 Arrival Date: 06/26/2019 Time: 07:43 Bed 2 Private MD: ED Physician Elmer Sidhu HPI: 06/25 07:45 This 23 yrs old Male presents to ER via Unassigned with complaints of left rn testicular pain/swelling. 07:45 The patient presents with swelling, that is mild, of the left testicle, tenderness, rn that is moderate, of the left testicle. Onset: The symptoms/episode began/occurred yesterday. Modifying factors: The symptoms are alleviated by nothing, the symptoms are aggravated by movement, pressure. Severity of symptoms: At their worst the symptoms were moderate, in the emergency department the symptoms are unchanged. The patient has not experienced similar symptoms in the past. The patient has not recently seen a physician. Reports 2-3 weeks of penile discharge and small amount of blood, has improved, concerned of STD, but now since last night has had left testicular swelling and pain, started around 10pm. No fever or trauma. . Historical: - Allergies: 07:51 No Known Allergies; sv - PMHx: 07:51 Bipolar disorder; Cutter; drug abuse; Seizures; sv - PSHx: 07:51 None; sv - Immunization history:: Adult Immunizations up to date. - Family history:: not pertinent. - Social history:: Smoking status: . - Hospitalizations: : No recent hospitalization is reported. ROS: 07:45 Constitutional: Negative for fever, chills, and weight loss, Eyes: Negative for injury, rn pain, redness, and discharge, Cardiovascular: Negative for chest pain, palpitations, and edema, Respiratory: Negative for shortness of breath, cough, wheezing, and pleuritic chest pain, Abdomen/GI: + lower abd pain/groin pain Back: Negative for injury and pain, : + left testicular swelling and pain MS/Extremity: Negative for injury and deformity, Skin: Negative for injury, rash, and discoloration, Neuro: Negative for headache, weakness, numbness, tingling, and seizure. Exam: 07:45 Constitutional: This is a well developed, well nourished patient who is awake, alert, rn appears uncomfortable and slow to move from EMS stretcher to ours. Head/Face: Normocephalic, atraumatic. ENT: MMM Cardiovascular: Regular rate and rhythm. No pulse deficits. Respiratory: Speaking full sentences. No increased work of breathing, no retractions or nasal flaring. Abdomen/GI: soft, non-tender, no masses Male : + mild left testicular swelling with tenderness throughout left hemiscrotum, no skin changes indicating cellulitis, no fluctuance or induration. + mild tenderness left inguinal canal. Skin: Warm, dry, no evidence of cellulitis. MS/ Extremity: Pulses equal, no cyanosis. Neurovascular intact. Full, normal range of motion. Equal circumference. Neuro: Awake and alert, GCS 15, oriented to person, place, time, and situation. Cranial nerves II-XII grossly intact. Motor strength 5/5 in all extremities. Sensory grossly intact. Cerebellar exam normal. Vital Signs: 07:20 BP 121 / 81; Pulse 96; Resp 16; Temp 100.8; Pulse Ox 100% ; sv 08:57 BP 104 / 60; Pulse 91; Resp 16; Pulse Ox 100% ; sv 09:20 Pain 5/10; sv 09:43 BP 102 / 65; Pulse 88; Resp 16; Pulse Ox 99% ; sv MDM: 07:43 Patient medically screened. rn 08:58 Differential diagnosis: UTI, urethritis, epididymitis, UTI, testicular torsion. Data rn reviewed: vital signs, nurses notes, lab test result(s), radiologic studies, ultrasound, and as a result, I will discharge patient. Counseling: I had a detailed discussion with the patient and/or guardian regarding: the historical points, exam findings, and any diagnostic results supporting the discharge/admit diagnosis, lab results, radiology results, the need for outpatient follow up, to return to the emergency department if symptoms worsen or persist or if there are any questions or concerns that arise at home. Response to treatment: the patient's symptoms have markedly improved after treatment, Sleeping comfortably, states feels much better, and as a result, I will discharge patient. Special discussion: I discussed with the patient/guardian in detail that at this point there is no indication for admission to the hospital. It is understood, however, that if the symptoms persist or worsen the patient needs to return immediately for re-evaluation. Based on the history and exam findings, there is no indication for further emergent testing or inpatient evaluation. I discussed with the patient/guardian the need to see the primary care provider for further evaluation of the symptoms. I discussed with the patient/guardian the need to see the urologist for further evaluation of the symptoms. 08:58 ED course: No evidence of torsion, will dc home with abx for epididymitis, treated as rn well for STI given high level of suspicion. . 06/25 07:44 Order name: Urine Microscopic Only rn 06/25 07:44 Order name: Urine Culture rn 06/25 07:44 Order name: US Scrotum Testicles rn 06/25 09:24 Order name: Urine Dipstick--Ancillary (enter results) bd 06/25 07:44 Order name: Urine Dipstick-Ancillary (obtain specimen); Complete Time: 09:21 rn 06/25 07:44 Order name: IV Start; Complete Time: 08:51 rn Administered Medications: 08:35 Drug: Zofran (Ondansetron) 4 mg Route: IVP; Site: right antecubital; sv 09:20 Follow up: Response: No adverse reaction sv 08:37 Drug: morphine 4 mg Route: IVP; Site: right antecubital; sv 09:20 Follow up: Pain 5/10 Adult; Response: No adverse reaction; Pain is decreased; RASS: sv Drowsy (-1) 09:21 Drug: Rocephin (cefTRIAXone) 250 mg Route: IM; Site: right deltoid; sv 09:43 Follow up: Response: No adverse reaction sv 09:21 Drug: Flagyl 2 grams Route: PO; sv 09:43 Follow up: Response: No adverse reaction sv Disposition: 06/26/19 09:00 Discharged to Home. Impression: Epididymitis. - Condition is Stable. - Discharge Instructions: Epididymitis. - Prescriptions for Cipro 500 mg Oral Tablet - take 1 tablet by ORAL route every 12 hours for 10 days; 20 tablet. Doxycycline Hyclate 100 mg Oral Tablet - take 1 tablet by ORAL route every 12 hours; 20 tablet. - Medication Reconciliation Form, Thank You Letter, Antibiotic Education, Prescription Opioid Use form. - Follow up: Private Physician; When: As needed; Reason: Recheck today's complaints, Re-evaluation by your physician. - Problem is new. - Symptoms have improved. Signatures: Dispatcher [employer] Danita Jason, RYAN RN Elmer Sidhu MD MD rn clinical resource: (The following items were deleted from the chart) 09:43 09:00 06/26/2019 09:00 Discharged to Home. Impression: Epididymitis. Condition is sv Stable. Discharge Instructions: Epididymitis. Prescriptions for Cipro 500 mg Oral Tablet - take 1 tablet by ORAL route every 12 hours for 10 days; 20 tablet, Doxycycline Hyclate 100 mg Oral Tablet - take 1 tablet by ORAL route every 12 hours; 20 tablet. and Forms are Medication Reconciliation Form, Thank You Letter, Antibiotic Education, Prescription Opioid Use. Follow up: Private Physician; When: As needed; Reason: Recheck today's complaints, Re-evaluation by your physician. Problem is new. Symptoms have improved. rn
[2019-06-26] MEDS ORDERED: CEFTRIAXONE 250 MG/VIAL ONE (09:06)
[2019-06-26] MEDS ORDERED: LIDOCAINE 1% MPF 2 ML AMPULE ONE (09:06)
[2019-06-26] MEDS ORDERED: metroNIDAZOLE 500 MG TABLET ONE (09:06)
[2019-06-26 09:49] LABS: Urine Blood 2+ (NEG); Urine Glucose NEGATIVE (NEG); Urine Protein 2+ (NEG); Urine Specific Gravity >1.030 (1.005-1.030); Urine pH 8.5 (5.0-7.0)
[2019-06-26 09:54] VITALS: BP 102/65; O2SAT 99
[2019-06-26 09:54] LABS: Urine Bacteria >50 /HPF (NONE SEEN); Urine Culture Reflex Order NOT NEEDED; Urine RBC >50 /HPF (NONE SEEN)
== END 2019-06-26 09:43 | disposition home or self-care (01) ==
LOC: ER 07:41
DX: N45.1 Epididymitis (principal)
CPT/HCPCS: 76870; 81003; 81015; 87086; 87088; 96372; 96374; 96375; 99284; J0696; J2001; J2405

== ENCOUNTER 2020-06-19 10:38 | Emergency (ER) | payer SELFPAY ==
[2020-06-19 11:28] LABS: Urine Blood Negative (Negative); Urine Glucose Negative (Negative); Urine Protein 1+ (Negative); Urine Specific Gravity >=1.030 (1.005-1.030); Urine pH 6.5 (5.0-7.0)
[2020-06-19] MEDS ORDERED: ONDANSETRON 4 MG/2 ML VIAL ONE (11:30)
[2020-06-19] MEDS ORDERED: NA CHLORIDE 0.9% 1,000 ML ONE (11:31)
[2020-06-19 11:33] LABS: Absolute Lymphocytes (CBC) 1.1 K/uL (0.7-4.9); Basophils % 0.2 % (0-1.3); Hematocrit 43.3 % (39.6-49.0); Lymphocytes % 11.9 % (15.3-44.8); RBC Red Blood Cell Count 4.84 M/uL (4.33-5.43)
[2020-06-19 12:10] LABS: Barbiturates NEGATIVE (NEGATIVE); Benzodiazepines NEGATIVE (NEGATIVE); Cocaine NEGATIVE (NEGATIVE); METHAMPHETAM POSITIVE (NEGATIVE); Methadone NEGATIVE (NEGATIVE); Opiates POSITIVE (NEGATIVE); Phencyclidine NEGATIVE (NEGATIVE); THC Cannibis POSITIVE (NEGATIVE)
[2020-06-19 12:10] LABS: ALT/SGPT 23 U/L (12-78); AST/SGOT 30 U/L (15-37); Albumin 4.6 g/dL (3.4-5.0); Alkaline Phosphatase 79 U/L (45-117); BUN Blood Urea Nitrogen 15 mg/dL (7-18); Bicarbonate 24 mmol/L (21-32); Bilirubin Direct 0.2 mg/dL (0-0.2); Bilirubin Total 1.1 mg/dL (0.2-1.0); Glucose Level 109 mg/dL (74-106); Protein, Total 8.2 g/dL (6.4-8.2); Sodium Level 138 mmol/L (136-145)
--- NOTE | 2020-06-19 13:20 | EDPHYS ---
Physician Documentation [facility] Name: Elliot Paige Age: 24 yrs Sex: Male : 1995 Arrival Date: 06/19/2020 Time: 10:39 Bed 16 Private MD: ED Physician Elmer Sidhu HPI: 06/19 11:14 This 24 yrs old Male presents to ER via EMS with complaints of jr8 Nausea/Vomiting. 11:14 The patient presents to the emergency department with nausea, vomiting. Onset: The jr8 symptoms/episode began/occurred acutely, today. Possible causes: recreational drug use. The symptoms are aggravated by nothing. The symptoms are alleviated by nothing. Associated signs and symptoms: The patient has no apparent associated signs or symptoms. Severity of symptoms: At their worst the symptoms were moderate in the emergency department the symptoms are unchanged. The patient has not experienced similar symptoms in the past. The patient has not recently seen a physician. Patient stated that he was at a [employer] last night and snorted an unknown substance. Stated that since then has had hot flashes and nausea and vomiting . Historical: - Allergies: 10:52 No Known Allergies; ca1 - Home Meds: 10:52 None [Active]; ca1 - PMHx: 10:52 Bipolar disorder; drug abuse; Seizures; Cutter; ca1 - PSHx: 10:52 None; ca1 - Immunization history:: Flu vaccine is not up to date. - Social history:: Smoking status: Patient reports the use of cigarette tobacco products, smokes one-half pack cigarettes per day, Patient uses alcohol, only on a social basis. ROS: 11:14 Eyes: Negative for injury, pain, redness, and discharge, ENT: Negative for injury, jr8 pain, and discharge, Neck: Negative for injury, pain, and swelling, Cardiovascular: Negative for chest pain, palpitations, and edema, Respiratory: Negative for shortness of breath, cough, wheezing, and pleuritic chest pain, Back: Negative for injury and pain, MS/Extremity: Negative for injury and deformity, Skin: Negative for injury, rash, and discoloration, Neuro: Negative for headache, weakness, numbness, tingling, and seizure. 11:14 Abdomen/GI: Positive for nausea and vomiting, Negative for abdominal pain, diarrhea, constipation, abdominal cramps, abdominal distension, hematemesis, rectal bleeding. Exam: 11:14 Eyes: Pupils equal round and reactive to light, extra-ocular motions intact. Lids and jr8 lashes normal. Conjunctiva and sclera are non-icteric and not injected. Cornea within normal limits. Periorbital areas with no swelling, redness, or edema. ENT: Nares patent. No nasal discharge, no septal abnormalities noted. Tympanic membranes are normal and external auditory canals are clear. Oropharynx with no redness, swelling, or masses, exudates, or evidence of obstruction, uvula midline. Mucous membranes moist. Neck: Trachea midline, no thyromegaly or masses palpated, and no cervical lymphadenopathy. Supple, full range of motion without nuchal rigidity, or vertebral point tenderness. No Meningismus. 11:14 Cardiovascular: Regular rate and rhythm with a normal S1 and S2. No gallops, murmurs, or rubs. Normal PMI, no JVD. No pulse deficits. Respiratory: Lungs have equal breath sounds bilaterally, clear to auscultation and percussion. No rales, rhonchi or wheezes noted. No increased work of breathing, no retractions or nasal flaring. Skin: Warm, dry with normal turgor. Normal color with no rashes, no lesions, and no evidence of cellulitis. MS/ Extremity: Pulses equal, no cyanosis. Neurovascular intact. Full, normal range of motion. Neuro: Awake and alert, GCS 15, oriented to person, place, time, and situation. Cranial nerves II-XII grossly intact. Motor strength 5/5 in all extremities. Sensory grossly intact. Cerebellar exam normal. Normal gait. 11:14 Constitutional: The patient appears alert, awake, uncomfortable. 11:14 Abdomen/GI: Inspection: scar(s), are noted in the abdomen diffusely, Bowel sounds: active, all quadrants, Palpation: abdomen is soft and non-tender, in all quadrants, Indicators: McBurney's point is not tender, Owen's sign is negative, Rovsing's sign is negative, Liver: tenderness, is not appreciated. Vital Signs: 10:44 BP 99 / 83; Pulse 69; Resp 18 S; Temp 96.3(TE); Pulse Ox 95% on R/A; Weight 72.57 kg ca1 (R); Height 6 ft. 0 in. (182.88 cm) (R); Pain 9/10; 11:47 BP 132 / 77; Pulse 62; Resp 18 S; Pulse Ox 100% on R/A; ca1 10:44 Body Mass Index 21.70 (72.57 kg, 182.88 cm) ca1 MDM: 10:44 Patient medically screened. [facility] [place] 13:18 Data reviewed: vital signs, nurses notes, lab test result(s), EKG, and as a result, I jr8 will discharge patient. Data interpreted: Pulse oximetry: on room air is 100 %. Interpretation: normal. Counseling: I had a detailed discussion with the patient and/or guardian regarding: the historical points, exam findings, and any diagnostic results supporting the discharge/admit diagnosis, lab results, the need for outpatient follow up, a family practitioner, to return to the emergency department if symptoms worsen or persist or if there are any questions or concerns that arise at home. Response to treatment: the patient's symptoms have resolved after treatment, patient is well hydrated. 06/19 10:58 Order name: Acetaminophen; Complete Time: 12:52 [facility] [place] 06/19 10:58 Order name: Basic Metabolic Panel; Complete Time: 12:52 06/19 10:58 Order name: CBC with Diff; Complete Time: 11:48 06/19 10:58 Order name: ETOH Level; Complete Time: 12:46 06/19 10:58 Order name: Hepatic Function; Complete Time: 12:52 06/19 10:58 Order name: Salicylate; Complete Time: 12:05 06/19 10:58 Order name: Urine Drug Screen; Complete Time: 12:46 06/19 10:58 Order name: EKG; Complete Time: 10:58 06/19 10:58 Order name: EKG - Nurse/Tech; Complete Time: 11:47 06/19 10:58 Order name: IV Saline Lock; Complete Time: 11:18 06/19 10:58 Order name: Labs collected and sent; Complete Time: 11:18 [facility] [place] 06/19 11:28 Order name: Urine Dipstick-Ancillary; Complete Time: 11:28 EDMT 06/19 10:58 Order name: Suicide Screening ([place]); Complete Time: 11:18 [facility] [place] 06/19 10:58 Order name: Urine Dipstick-Ancillary (obtain specimen); Complete Time: 11:29 jr8 Administered Medications: 11:10 Drug: NS 0.9% 1000 ml Route: IV; Rate: 1000 ml; Site: left forearm; ca1 13:25 Follow up: Response: No adverse reaction; Marked relief of symptoms; IV Status: zb Completed infusion; IV Intake: 1000ml 11:12 Drug: Zofran (Ondansetron) 4 mg Route: IVP; Site: left forearm; ca1 13:00 Follow up: Response: No adverse reaction; Marked relief of symptoms; Nausea is decreasedzb Disposition: 15:37 Co-signature as Attending Physician, Elmer Sidhu MD. rn Disposition: 06/19/20 13:19 Discharged to Home. Impression: Vomiting, Drug abuse counseling and surveillance. - Condition is Stable. - Discharge Instructions: Nausea and Vomiting, Adult. - Medication Reconciliation Form, Thank You Letter, Antibiotic Education, Prescription Opioid Use form. - Follow up: Private Physician; When: 2 - 3 days; Reason: Recheck today's complaints, Continuance of care, Re-evaluation by your physician. - Problem is new. - Symptoms have improved. Signatures: Dispatcher [employer] EDMS Elmer Sidhu MD MD rn Roszak, Josh, PA PA jr8 Mellisa Pereyra RN RN ca1 Nichole Reese RN RN zb Corrections: (The following items were deleted from the chart) 13:28 13:19 06/19/2020 13:19 Discharged to Home. Impression: Vomiting; Drug abuse counseling zb and surveillance. Condition is Stable. Forms are Medication Reconciliation Form, Thank You Letter, Antibiotic Education, Prescription Opioid Use. Follow up: Private Physician; When: 2 - 3 days; Reason: Recheck today's complaints, Continuance of care, Re-evaluation by your physician. Problem is new. Symptoms have improved. jr8
--- NOTE | 2020-06-19 13:20 | ER ---
Nurse's Notes [facility] Name: Elliot Paige Age: 24 yrs Sex: Male : 1995 Arrival Date: 06/19/2020 Time: 10:39 Bed 16 Private MD: Diagnosis: Vomiting;Drug abuse counseling and surveillance Presentation: 06/19 10:44 Coronavirus screen: Client denies travel out of the [place] in the last 14 days. nausea, ca1 vomiting. Client presents with at least one sign or symptom that may indicate coronavirus-19. Standard/surgical mask placed on the client. Provider contacted for isolation considerations. Ebola Screen: Patient negative for fever greater than or equal to 101.5 degrees Fahrenheit, and additional compatible Ebola Virus Disease symptoms Patient denies exposure to infectious person. Patient denies travel to an Ebola-affected area in the 21 days before illness onset. No symptoms or risks identified at this time. Initial Sepsis Screen: Does the patient meet any 2 criteria? No. Patient's initial sepsis screen is negative. Does the patient have a suspected source of infection? No. Patient's initial sepsis screen is negative. Risk Assessment: Do you want to hurt yourself or someone else? Patient reports no desire to harm self or others. Onset of symptoms was June 19, 2020 at 05:00. 10:44 Method Of Arrival: EMS: [facility] ca1 10:44 Acuity: MEGA 3 ca1 10:44 Chief complaint: EMS states: N/V since 0500 this morning. Feels hot sensation prior to ca1 vomiting then cools off right after. PT reports streaks blood with vomit. Clear vomit while with EMS noted. 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 Triage Assessment: 10:52 General: Appears in no apparent distress. uncomfortable, Behavior is restless. Pain: ca1 Complains of pain in chest and abdomen Pain currently is 9 out of 10 on a pain scale. EENT: No signs and/or symptoms were reported regarding the EENT system. Neuro: Level of Consciousness is awake, alert, obeys commands, Oriented to person, place, time, situation. Cardiovascular: Heart tones S1 S2 present Capillary refill < 3 seconds Patient's skin is warm and dry. Respiratory: Airway is patent Respiratory effort is even, unlabored, Respiratory pattern is regular, symmetrical, Breath sounds are clear bilaterally. GI: Abdomen is flat, non-distended, Bowel sounds present X 4 quads. Abd is soft and non tender X 4 quads. Reports nausea, vomiting, since 0500 today. : No signs and/or symptoms were reported regarding the genitourinary system. Derm: Skin is intact, is healthy with good turgor, Skin is moist, Skin is pink, Skin temperature is cool. Musculoskeletal: Circulation, motion, and sensation intact. Capillary refill < 3 seconds. Historical: - Allergies: 10:52 No Known Allergies; ca1 - Home Meds: 10:52 None [Active]; ca1 - PMHx: 10:52 Bipolar disorder; drug abuse; Seizures; Cutter; ca1 - PSHx: 10:52 None; ca1 - Immunization history:: Flu vaccine is not up to date. - Social history:: Smoking status: Patient reports the use of cigarette tobacco products, smokes one-half pack cigarettes per day, Patient uses alcohol, only on a social basis. Screenin:54 Abuse screen: Denies threats or abuse. Denies injuries from another. Nutritional ca1 screening: No deficits noted. Tuberculosis screening: No symptoms or risk factors identified. Fall Risk IV access (20 points). Assessment: 10:54 Reassessment: see triage notes. GI: Abdomen is flat, non-distended, Bowel sounds ca1 present X 4 quads. Abd is soft and non tender X 4 quads. Reports nausea, vomiting. 11:47 Reassessment: Patient appears in no apparent distress at this time. Patient and/or ca1 family updated on plan of care and expected duration. Pain level reassessed. Patient is alert, oriented x 3, equal unlabored respirations, skin warm/dry/pink. General: Appears in no apparent distress. comfortable, Behavior is calm, cooperative, appropriate for age. 12:53 Reassessment: Patient appears in no apparent distress at this time. Patient and/or zb family updated on plan of care and expected duration. Pain level reassessed. Patient is alert, oriented x 3, equal unlabored respirations, skin warm/dry/pink. patient states he no longer feels nausea. given ice chips PO Patient states feeling better. Patient states symptoms have improved. 13:25 Reassessment: Patient appears in no apparent distress at this time. Patient and/or zb family updated on plan of care and expected duration. Pain level reassessed. Patient is alert, oriented x 3, equal unlabored respirations, skin warm/dry/pink. d/c instructions given. pt able to ambulated. Vital Signs: 10:44 BP 99 / 83; Pulse 69; Resp 18 S; Temp 96.3(TE); Pulse Ox 95% on R/A; Weight 72.57 kg ca1 (R); Height 6 ft. 0 in. (182.88 cm) (R); Pain 9/10; 11:47 BP 132 / 77; Pulse 62; Resp 18 S; Pulse Ox 100% on R/A; ca1 10:44 Body Mass Index 21.70 (72.57 kg, 182.88 cm) ca1 ED Course: 10:39 Patient arrived in ED. am2 10:44 Mellisa Pereyra, RN is Primary Nurse. ca1 10:44 Manfred Guzman PA is PHCP. jr8 10:44 Elmer Sidhu MD is Attending Physician. jr8 10:51 Triage completed. ca1 10:52 Arm band placed on right wrist. ca1 10:54 Patient has correct armband on for positive identification. Placed in gown. Bed in low ca1 position. Call light in reach. Side rails up X2. Pulse ox on. NIBP on. Warm blanket given. 10:57 Initial lab(s) drawn, by me, sent to lab. Inserted saline lock: 20 gauge in left ca1 forearm, using aseptic technique. Blood collected. 13:28 No provider procedures requiring assistance completed. IV discontinued, intact, zb bleeding controlled, No redness/swelling at site. Pressure dressing applied. Administered Medications: 11:10 Drug: NS 0.9% 1000 ml Route: IV; Rate: 1000 ml; Site: left forearm; ca1 13:25 Follow up: Response: No adverse reaction; Marked relief of symptoms; IV Status: zb Completed infusion; IV Intake: 1000ml 11:12 Drug: Zofran (Ondansetron) 4 mg Route: IVP; Site: left forearm; ca1 13:00 Follow up: Response: No adverse reaction; Marked relief of symptoms; Nausea is decreasedzb Intake: 13:25 IV: 1000ml; Total: 1000ml. zb Outcome: 13:19 Discharge ordered by . jr8 13:28 Discharged to home ambulatory. zb 13:28 Condition: stable 13:28 Discharge instructions given to patient, Instructed on discharge instructions, follow up and referral plans. Demonstrated understanding of instructions, follow-up care, Prescriptions given X 1. 13:28 Patient left the ED. zb Signatures: Manfred Guzman PA PA jr8 Merissa Wiggins am2 Mellisa Pereyra RN RN ca1 Nichole Reese RN RN zb Corrections: (The following items were deleted from the chart) 10:57 10:55 Chief complaint: EMS states: N/V since 0500 this morning. Feels hot sensation ca1 prior to vomiting then cools off right after. PT reports streaks blood with vomit. Clear vomit while with EMS noted. 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
[2020-06-19 13:39] VITALS: BP 132/77; TEMP 96.3; O2SAT 100
--- NOTE | 2020-06-19 16:08 | EKG ---
Test Date: 2020-06-19 Test Time: 11:43:14 [employer] Worker: MELI Workman MEASUREMENT RESULTS: Intervals: Rate: 59 MD: 112 QRSD: 94 QT: 460 QTc: 455 Caroleen: P: 79 MD: 112 QRS: 76 T: 62 INTERPRETIVE STATEMENTS: Sinus bradycardia Otherwise normal ECG Compared to ECG 11/25/2018 22:39:37 Sinus rhythm no longer present Electronically Signed On 06-19-20 16:06:47 CDT by Lucas Alvarez
== END 2020-06-19 13:28 | disposition home or self-care (01) ==
LOC: ER 10:38
DX: R11.10 Vomiting, unspecified (principal); Z71.51 Drug abuse counseling and surveillance of drug abuser; F17.210 Nicotine dependence, cigarettes, uncomplicated
CPT/HCPCS: 36415; 80048; 80076; 80307; 80320; 80329; 81003; 85025; 93005; 96361; 96374; 99284; J2405; J7030

== ENCOUNTER 2020-07-03 11:29 | Emergency (ER) | payer SELFPAY ==
--- OUTSIDE RECORDS SUMMARY | 2020-07-03 11:31 | XMS REPORT | Continuity of Care Document ---
:1995 Author Organization [facility] t Address [address] [place] [address] Care Team Providers Name Role Phone Ji Kaufman Attending Clinician Problems This patient has no known problems. Allergies, Adverse Reactions, Alerts This patient has no known allergies or adverse reactions. Medications This patient has no known medications. Procedures This patient has no known procedures. Encounters Start End Encounter Admission Attending Care Care Encounter Source Date/Time Date/Time Type Type Clinicians Facility Department ID 2019-06-27 2019-06-27 Emergency Gladis [facility] [id number] 07:34:53 12:25:00 Samantha Mari [id number] [place] [id number] [place] [id number] Results This patient has no known results.
[2020-07-03 12:35] LABS: Urine Blood Negative (Negative); Urine Glucose Negative (Negative); Urine Protein Trace (Negative); Urine pH 8.5 (5.0-7.0)
[2020-07-03 12:48] LABS: Barbiturates NEGATIVE (NEGATIVE); Benzodiazepines NEGATIVE (NEGATIVE); Cocaine NEGATIVE (NEGATIVE); METHAMPHETAM NEGATIVE (NEGATIVE); Methadone NEGATIVE (NEGATIVE); Opiates POSITIVE (NEGATIVE); Phencyclidine NEGATIVE (NEGATIVE); THC Cannibis POSITIVE (NEGATIVE)
--- NOTE | 2020-07-03 14:50 | EDPHYS ---
Physician Documentation [facility] Name: Elliot Paige Age: 24 yrs Sex: Male : 1995 Arrival Date: 07/03/2020 Time: 11:31 Bed 8 Private MD: ED Physician Branden Augustine HPI: 07/03 14:42 This 24 yrs old Male presents to ER via EMS with complaints of Abdominal Pain.[facility] 14:42 The patient presents with abdominal pain. Onset: The symptoms/episode began/occurred jm acutely. The symptoms do not radiate. This is a 24 year old male with a history of bipolar, drug abuse that presents to the ED with complaints of abdominal pain, vomiting beginning yesterday after ingesting a recreational substance. Patient states swallowing a blue pill. Patient states developing vomiting, fatigue. . Historical: - Allergies: 11:35 No Known Allergies; bp - Home Meds: 11:35 None [Active]; bp - PMHx: 11:35 Bipolar disorder; Cutter; drug abuse; Seizures; bp - Immunization history:: Adult Immunizations up to date. - Social history:: Smoking status: Patient denies any tobacco usage or history of. ROS: 14:42 Cardiovascular: Negative for chest pain, palpitations, and edema, Respiratory: Negative jm for shortness of breath, cough, wheezing, and pleuritic chest pain. 14:42 Constitutional: Positive for fatigue. 14:42 Abdomen/GI: Positive for abdominal pain, nausea and vomiting. 14:42 All other systems are negative. Exam: 14:42 Head/Face: atraumatic. Eyes: EOMI, no conjunctival erythema appreciated ENT: Moist jmm Mucus Membranes Neck: Trachea midline, Supple Chest/axilla: Normal chest wall appearance and motion. Cardiovascular: Regular rate and rhythm. No edema appreciated Respiratory: Normal respirations, no respiratory distress appreciated 14:42 Skin: General appearance color normal MS/ Extremity: Moves all extremities, no obvious deformities appreciated, no edema noted to the lower extremities Neuro: Awake and alert, normal gait Psych: Behavior is normal, Mood is normal, Patient is cooperative and pleasant 14:42 Constitutional: The patient appears alert, awake, anxious, uncomfortable. 14:42 Abdomen/GI: Inspection: abdomen appears normal, Bowel sounds: normal, Palpation: abdomen is soft and non-tender, in all quadrants. Vital Signs: 11:33 Weight 74.84 kg; Height 6 ft. 1 in. (185.42 cm); bp 12:05 BP 137 / 99; Pulse 59; Resp 18; Temp 97.8; Pulse Ox 100% ; ll1 13:00 BP 125 / 80; Pulse 62; Resp 17; Pulse Ox 99% ; bp 14:00 BP 132 / 65; Pulse 65; Resp 17; Pulse Ox 97% ; bp 15:00 BP 124 / 72; Pulse 60; Resp 15; Pulse Ox 98% ; bp 15:55 BP 124 / 80; Pulse 59; Resp 17; Temp 98; Pulse Ox 99% ; bp 11:33 Body Mass Index 21.77 (74.84 kg, 185.42 cm) bp MDM: 11:38 Patient medically screened. donna 14:48 Data reviewed: vital signs, nurses notes. Counseling: I had a detailed discussion with valdez the patient and/or guardian regarding: the historical points, exam findings, and any diagnostic results supporting the discharge/admit diagnosis, lab results, the need for outpatient follow up, to return to the emergency department if symptoms worsen or persist or if there are any questions or concerns that arise at home. ED course: Patient is alert and non toxic in appearance in the ED. Abdomen soft, patient states feeling much better. Patient advised not take drugs. Patient agrees. . 07/03 11:42 Order name: Acetaminophen [facility] 07/03 11:42 Order name: Basic Metabolic Panel [facility] 07/03 11:42 Order name: CBC with Diff [facility] 07/03 11:42 Order name: ETOH Level [facility] 07/03 11:42 Order name: Hepatic Function [facility] 07/03 11:42 Order name: PT-INR [facility] 07/03 11:42 Order name: Ptt, Activated [facility] 07/03 11:42 Order name: Salicylate [facility] 07/03 11:42 Order name: Urine Drug Screen [facility] 07/03 11:42 Order name: EKG; Complete Time: 11:44 [facility] 07/03 11:42 Order name: EKG - Nurse/Tech; Complete Time: 12:11 [facility] 07/03 11:42 Order name: IV Saline Lock; Complete Time: 11:48 [facility] 07/03 11:42 Order name: Labs collected and sent; Complete Time: 11:48 [facility] 07/03 11:42 Order name: Suicide Screening ([place]); Complete Time: 12:05 [facility] 07/03 11:42 Order name: Urine Dipstick-Ancillary (obtain specimen); Complete Time: 12:37 [facility] 07/03 11:43 Order name: Urine Drug Screen; Complete Time: 13:38 [facility] 07/03 12:34 Order name: Urine Dipstick-Ancillary; Complete Time: 13:38 EDMS Administered Medications: 12:06 Drug: NS 0.9% 1000 ml Route: IV; Rate: 1 bolus; Site: left forearm; ll1 15:57 Follow up: IV Status: Completed infusion; IV Intake: 1000ml bp Disposition: 07/04 09:30 Co-signature as Attending Physician, Branden Augustine MD I agree with the assessment and donna plan of care. Disposition: 07/03/20 14:50 Discharged to Home. Impression: Drug Abuse. - Condition is Stable. - Discharge Instructions: Drug Overdose. - Medication Reconciliation Form, Thank You Letter, Antibiotic Education, Prescription Opioid Use form. - Follow up: Private Physician; When: 2 - 3 days; Reason: Recheck today's complaints, Continuance of care, Re-evaluation by your physician. Signatures: Dispatcher [employer] Branden Elias MD MD cha Mickail, Joel, PA PA Sin Du, RN RN Celeste London RN RN ll1 Corrections: (The following items were deleted from the chart) 07/03 15:57 14:50 07/03/2020 14:50 Discharged to Home. Impression: Drug Abuse. Condition is Stable. bp Forms are Medication Reconciliation Form, Thank You Letter, Antibiotic Education, Prescription Opioid Use. Follow up: Private Physician; When: 2 - 3 days; Reason: Recheck today's complaints, Continuance of care, Re-evaluation by your physician. [facility]
--- NOTE | 2020-07-03 14:50 | ER ---
Nurse's Notes [facility] Name: Elliot Paige Age: 24 yrs Sex: Male : 1995 Arrival Date: 07/03/2020 Time: 11:31 Bed 8 Private MD: Diagnosis: Drug Abuse Presentation: 07/03 11:33 Chief complaint: EMS states: DIFFUSE ABDOMINAL PAIN WITH N/V. Coronavirus screen: At bp this time, the client does not indicate any symptoms associated with coronavirus-19. Ebola Screen: No symptoms or risks identified at this time. Initial Sepsis Screen: Does the patient meet any 2 criteria? No. Patient's initial sepsis screen is negative. Does the patient have a suspected source of infection? No. Patient's initial sepsis screen is negative. Risk Assessment: Do you want to hurt yourself or someone else? Patient reports no desire to harm self or others. Onset of symptoms was July 03, 2020. Care prior to arrival: Medication(s) given: Phenergan, 12.5 mg, TORADOL 30MG IV initiated. 18 GA, in the left forearm. 11:33 Method Of Arrival: EMS: [facility] bp 11:33 Acuity: MEGA 3 bp Triage Assessment: 11:35 General: Appears in no apparent distress. uncomfortable, slender, Behavior is bp cooperative, appropriate for age, anxious. Pain: Complains of pain in abdomen. EENT: No deficits noted. Neuro: No deficits noted. Cardiovascular: No deficits noted. Respiratory: No deficits noted. GI: Reports lower abdominal pain, upper abdominal pain, nausea, vomiting. : No signs and/or symptoms were reported regarding the genitourinary system. Derm: No deficits noted. Musculoskeletal: No deficits noted. Historical: - Allergies: 11:35 No Known Allergies; bp - Home Meds: 11:35 None [Active]; bp - PMHx: 11:35 Bipolar disorder; Cutter; drug abuse; Seizures; bp - Immunization history:: Adult Immunizations up to date. - Social history:: Smoking status: Patient denies any tobacco usage or history of. Screenin:36 Abuse screen: Denies threats or abuse. Denies injuries from another. Nutritional bp screening: No deficits noted. Tuberculosis screening: No symptoms or risk factors identified. Fall Risk None identified. Assessment: 11:36 General: SEE TRIAGE NOTE. bp 13:30 Reassessment: Patient appears in no apparent distress at this time. No changes from bp previously documented assessment. Patient and/or family updated on plan of care and expected duration. Pain level reassessed. 15:00 Reassessment: Patient appears in no apparent distress at this time. Patient and/or bp family updated on plan of care and expected duration. Pain level reassessed. Patient is alert, oriented x 3, equal unlabored respirations, skin warm/dry/pink. Neuro: Level of Consciousness is awake, alert, obeys commands, Oriented to Appropriate for age Gait is steady. 15:53 Reassessment: PT D/C HOME AMBULATORY, DX WITH DRUG ABUSE. bp Vital Signs: 11:33 Weight 74.84 kg; Height 6 ft. 1 in. (185.42 cm); bp 12:05 BP 137 / 99; Pulse 59; Resp 18; Temp 97.8; Pulse Ox 100% ; ll1 13:00 BP 125 / 80; Pulse 62; Resp 17; Pulse Ox 99% ; bp 14:00 BP 132 / 65; Pulse 65; Resp 17; Pulse Ox 97% ; bp 15:00 BP 124 / 72; Pulse 60; Resp 15; Pulse Ox 98% ; bp 15:55 BP 124 / 80; Pulse 59; Resp 17; Temp 98; Pulse Ox 99% ; bp 11:33 Body Mass Index 21.77 (74.84 kg, 185.42 cm) bp ED Course: 11:31 Patient arrived in ED. bd 11:32 Cheikh Garduno PA is PHCP. [facility] 11:32 Branden Augustine MD is Attending Physician. [facility] 11:33 Sin Tsang, RYAN is Primary Nurse. bp 11:34 Triage completed. bp 11:35 Arm band placed on. bp 11:36 Patient has correct armband on for positive identification. Bed in low position. Call bp light in reach. Side rails up X2. 11:36 Maintain EMS IV. Dressing intact. Good blood return noted. Site clean \T\ dry. Gauge \T\ bp site: 18 GAUGE LEFT FA. 15:56 No provider procedures requiring assistance completed. IV discontinued, intact, bp bleeding controlled, No redness/swelling at site. Pressure dressing applied. Administered Medications: 12:06 Drug: NS 0.9% 1000 ml Route: IV; Rate: 1 bolus; Site: left forearm; ll1 15:57 Follow up: IV Status: Completed infusion; IV Intake: 1000ml bp Intake: 15:57 IV: 1000ml; Total: 1000ml. bp Outcome: 14:50 Discharge ordered by MD. kellogg 15:56 Discharged to home ambulatory. bp 15:56 Condition: stable 15:56 Discharge instructions given to patient, Instructed on discharge instructions, follow up and referral plans. Demonstrated understanding of instructions, follow-up care. 15:57 Patient left the ED. bp Signatures: Natalia Ly Joel, PA PA jmm Peltier, Brian, RN RN bp Celeste Gibbons RN RN ll1
[2020-07-03 16:09] VITALS: BP 124/80; TEMP 98; O2SAT 99
--- NOTE | 2020-07-04 07:19 | EKG ---
Test Date: 2020-07-03 Test Time: 12:16:24 Dandy Tender: STAR MEASUREMENT RESULTS: Intervals: Rate: 60 UT: 132 QRSD: 94 QT: 430 QTc: 430 Dillon: P: 81 UT: 132 QRS: 81 T: 72 INTERPRETIVE STATEMENTS: Sinus rhythm with premature atrial complexes Otherwise normal ECG Compared to ECG 06/19/2020 11:43:14 Atrial premature complex(es) now present Sinus bradycardia no longer present Electronically Signed On 07-04-20 07:17:43 CDT by Lucas Alvarez
== END 2020-07-03 15:57 | disposition home or self-care (01) ==
LOC: ER 11:29
DX: F19.10 Other psychoactive substance abuse, uncomplicated (principal)
CPT/HCPCS: 80307; 81003; 93005; 96360; 96361; 99283

== ENCOUNTER 2021-09-07 11:04 | Inpatient (IN) | payer SELFPAY ==
[2021-09-07] MEDS ORDERED: ONDANSETRON 4 MG/2 ML VIAL ONE (11:34)
--- NOTE | 2021-09-07 11:53 | RAD REPORT ---
EXAM DESCRIPTION: RAD - Chest Single View - 09/07/2021 11:44 am CLINICAL HISTORY: OD, narcan, possible pulomonary edema Chest pain. COMPARISON: No comparisons FINDINGS: Portable technique limits examination quality. Bilateral pulmonary opacities are present with somewhat nodular appearance, which probably represents bilateral infection. Given the nodular appearance, septic emboli is also possible. The heart is norm al in size. No displaced fractures.
[2021-09-07 11:55] LABS: Absolute Lymphocytes (CBC) 0.4 K/uL (0.7-4.9); Hematocrit 43.5 % (39.6-49.0); Lymphocytes % 4.1 % (15.3-44.8); MCV 93.8 fL (80-100); MPV 8.3 fL (7.6-11.3); RBC Red Blood Cell Count 4.64 M/uL (4.33-5.43)
--- NOTE | 2021-09-07 12:00 | EDPHYS ---
Physician Documentation [facility] Name: Elliot Paige Age: 26 yrs Sex: Male : 1995 Arrival Date: 09/07/2021 Time: 11:21 Bed 16 Private MD: ED Physician Elmer Sidhu HPI: 09/07 11:37 This 26 yrs old Male presents to ER via Unassigned with complaints of overdose. rn 11:37 The patient presents to the emergency department after a known overdose, that was rn accidental, a result of recreational substance abuse. Context: Method: it is confirmed or suspected that the patient injected a substance, Time: the patient's OD/poisoning occurred at an unknown time, the OD/poisoning occurred at at home. Severity of symptoms: At their worst the symptoms were severe in the emergency department the symptoms have improved. It is unknown whether or not the patient has had similar symptoms in the past. It is unknown whether or not the patient has recently seen a physician. Per EMS, patient overdose, heroin, was breathing very slowly and given Narcan 0.5 mg by EMS with improvement of symptoms. Patient still sleeping but more easily arousable. Patient denies any other drug use or alcohol. Patient reports does not usually use heroin and did not know what happened.. Historical: - Allergies: 12: No Known Allergies; vg1 - PMHx: 12:01 Bipolar disorder; Cutter; drug abuse; Seizures; vg1 - Social history:: Smoking status: Patient reports the use of cigarette tobacco products, Patient uses street drugs, heroin, marijuana, Methamphetamine (Meth). - Family history:: not pertinent. - Hospitalizations: : No recent hospitalization is reported. ROS: 11:37 Constitutional: Negative for fever, chills, and weight loss, Eyes: Negative for injury, rn pain, redness, and discharge, Neck: Negative for injury, pain, and swelling, Cardiovascular: Negative for chest pain, palpitations, and edema, Respiratory: Negative for shortness of breath, cough, wheezing, and pleuritic chest pain, Abdomen/GI: Negative for abdominal pain, nausea, vomiting, diarrhea, and constipation, Back: Negative for injury and pain, MS/Extremity: Negative for injury and deformity, Skin: Negative for injury, rash, and discoloration, Neuro: Negative for headache, weakness, numbness, tingling, and seizure. Exam: 11:37 Constitutional: This is a well developed, well nourished patient who is somnolent but rn arouses easily to painful stimuli Head/Face: Normocephalic, atraumatic. Eyes: Periorbital areas with no swelling, redness, or edema. ENT: dry Mucous membranes Cardiovascular: Tachycardic, regular Respiratory: Moderate tachypnea Abdomen/GI: Soft, non-tender Skin: Warm, dry MS/ Extremity: Pulses equal, no cyanosis. Neuro: Somnolent, awakens to voice and painful stimuli Vital Signs: 11:00 BP 107 / 82; Pulse 91; Resp 26; Temp 97.5(TE); Pulse Ox 85% on 4 lpm NC; Weight 72.57 vg1 kg; Height 6 ft. 1 in. (185.42 cm); Pain 5/10; 11:10 BP 102 / 78; Pulse 97; Resp 23; Pulse Ox 91% on 15% Non-rebreather mask; vg1 12:00 BP 105 / 79; Pulse 95; Resp 16; Pulse Ox 93% on 4 lpm NC; vg1 12:45 BP 111 / 77; Pulse 98; Resp 19; Pulse Ox 100% on BiPAP; vg1 13:00 BP 110 / 81; Pulse 98; Resp 14; Pulse Ox 100% on BiPAP; vg1 13:20 BP 112 / 88; Pulse 96; Resp 12; Pulse Ox 100% on BiPAP; vg1 13:40 BP 112 / 84; Pulse 100; Resp 16; Pulse Ox 100% on BiPAP; vg1 14:00 BP 123 / 91; Pulse 100; Resp 18; Pulse Ox 97% on BiPAP; vg1 14:20 BP 116 / 83; Pulse 97; Resp 17; Pulse Ox 100% on BiPAP; vg1 14:40 BP 119 / 88; Pulse 96; Resp 16; Pulse Ox 99% on BiPAP; vg1 15:00 BP 104 / 89; Pulse 95; Resp 20; Pulse Ox 99% on BiPAP; vg1 15:20 BP 113 / 91; Pulse 100; Resp 16; Pulse Ox 99% on BiPAP; vg1 15:48 BP 142 / 96; Pulse 110; Resp 19; Pulse Ox 100% on BiPAP; vg1 16:00 BP 105 / 78; Pulse 103; Resp 20; Pulse Ox 99% on BiPAP; vg1 16:20 BP 113 / 89; Pulse 99; Resp 16; Pulse Ox 98% on BiPAP; vg1 17:00 BP 116 / 87; Pulse 97; Resp 14; Pulse Ox 97% on BiPAP; vg1 19:15 BP 118 / 88; Pulse 95; Resp 23; Pulse Ox 92% on R/A; vc1 11:00 Body Mass Index 21.11 (72.57 kg, 185.42 cm) 1 MDM: 11:23 Patient medically screened. rn 11:43 Differential diagnosis: Ingestion/exposure to heroin. Data reviewed: vital signs, rn nurses notes, and as a result, I will admit patient. 11:57 Counseling: I had a detailed discussion with the patient and/or guardian regarding: the rn historical points, exam findings, and any diagnostic results supporting the discharge/admit diagnosis, lab results, radiology results, the need for further work-up and treatment in the hospital. Response to treatment: the patient's symptoms have mildly improved after treatment, and as a result, I will admit patient. Admission orders: after a detailed discussion of the patient's condition and case, the admit orders are written by me. ED course: Pt given narcan in field, by the time I saw him here, had tachypnea with crackles, hypoxemia, most likely flash pulmonary edema from narcan given young age and no medical problems, but will cover with abx given severe OD and chance of aspiration.. 14:00 ED course: Pt meets SIRS criteria, likely related to overdose with bradypnea and rn hypoxia and not infectious etiology. Covered with abx but no definitive source of infection at this time. Elevated lactate likely 2/2 same reason, will hold fluids for now given possible pulmonary edema and lactate not greater than 4 at this time.. 09/07 11:24 Order name: Basic Metabolic Panel; Complete Time: 12:21 rn 09/07 11:24 Order name: CBC with Diff; Complete Time: 12:21 rn 09/07 11:24 Order name: ETOH Level; Complete Time: 12:21 rn 09/07 11:24 Order name: Hepatic Function; Complete Time: 12:21 rn 09/07 11:24 Order name: PT-INR; Complete Time: 12:21 rn 09/07 11:24 Order name: Ptt, Activated; Complete Time: 12:21 09/07 11:24 Order name: Urine Drug Screen 09/07 11:57 Order name: ABG rn 09/07 11:57 Order name: Blood Culture Adult (2) 09/07 11:57 Order name: Lactate; Complete Time: 13:04 09/07 13:55 Order name: HCV w/reflex PCR [facility] 09/07 13:55 Order name: HIV AG/AB, 4th Gen W/ Reflex [facility] 09/07 14:45 Order name: Urine Dipstick-Ancillary [facility] 09/07 15:25 Order name: SARS-COV-2 RT PCR (Document "Date of Onset" if Symptomatic) em1 09/07 11:24 Order name: EKG; Complete Time: 11:25 09/07 11:24 Order name: EKG - Nurse/Tech; Complete Time: 11:25 09/07 11:24 Order name: IV Saline Lock; Complete Time: 11:52 09/07 11:24 Order name: Labs collected and sent; Complete Time: 11:52 09/07 11:24 Order name: Urine Dipstick-Ancillary (obtain specimen); Complete Time: 19:43 09/07 11:24 Order name: XRAY Chest (1 view); Complete Time: 11:56 09/07 11:24 Order name: Cardiac monitoring; Complete Time: 11:25 09/07 11:24 Order name: O2 Sat Monitoring; Complete Time: 11:25 09/07 11:57 Order name: BIPAP 09/07 16:03 Order name: Lactate Sepsis 2 HR Follow-up [facility] 09/07 17:10 Order name: SARS-COV-2 RT PCR [facility] 09/07 17:36 Order name: ABG Arterial Blood Gas EDNE Administered Medications: 11:45 Drug: Zofran (Ondansetron) 4 mg Route: IVP; Site: left forearm; vg1 13:17 Follow up: Response: No adverse reaction; Nausea is decreased vg1 13:16 Drug: Zosyn (piperacillin-tazobactam) 3.375 grams Route: IVPB; Infused Over: 60 mins; vg1 Site: left upper arm; 14:38 Follow up: Response: No adverse reaction; IV Status: Completed infusion; IV Intake: tp1 100ml Disposition Summary: 09/07/21 11:59 Hospitalization Ordered Hospitalization Status: Inpatient Admission rn Provider: Constantine Michelle rn Location: Intensive Care Unit rn Condition: Fair rn Problem: new rn Symptoms: have improved rn Bed/Room Type: Standard rn Room Assignment: 7-(09/07/21 18:43) em1 Diagnosis - Poisoning by heroin, accidental (unintentional), initial encounter rn - Acute pulmonary edema rn - Hypoxemia rn Forms: - Medication Reconciliation Form rn - SBAR form rn Signatures: Dispatcher [employer] EDMS Elmer Sidhu MD MD rn Martinez, Yao em1 Desi Carbajal RN RN [email or web address] Yesseina Deleon tp1 Corrections: (The following items were deleted from the chart) 11:44 11:37 Constitutional: This is a well developed, well nourished patient who is somnolent rn but arouses easily to painful stimuli Head/Face: Normocephalic, atraumatic. Eyes: Periorbital areas with no swelling, redness, or edema. ENT: dry Mucous membranes rn 18:43 11:59 rn em1
--- NOTE | 2021-09-07 12:00 | ER ---
Nurse's Notes [facility] Name: Elliot Paige Age: 26 yrs Sex: Male : 1995 Arrival Date: 09/07/2021 Time: 11:21 Bed 16 Private MD: Diagnosis: Poisoning by heroin, accidental (unintentional), initial encounter;Acute pulmonary edema;Hypoxemia Presentation: 09/07 11:00 Method Of Arrival: EMS: [facility] vg1 11:00 Chief complaint: EMS states: pt found in motel in [place], [place], pt was only responsive to vg1 painful stimuli at the time, administered Narcan 0.5 IVP, pt began to vomit, Zofran 4 mg IVP, pt admitted to the use of meth, heroin, and benzos, stated has been up for five day and has not slept. Ebola Screen: Patient denies exposure to infectious person. Patient denies travel to an Ebola-affected area in the 21 days before illness onset. Initial Sepsis Screen: Does the patient meet any 2 criteria? RR > 20 per min. HR > 90 bpm. Does the patient have a suspected source of infection? No. Patient's initial sepsis screen is negative. Risk Assessment: Do you want to hurt yourself or someone else? Patient reports no desire to harm self or others. Onset of symptoms was September 07, 2021. 11:00 Acuity: MEGA 2 vg1 11:00 Care prior to arrival: Medication(s) given: Normal saline infusion, 500 mL, IV vg1 initiated. 20 GA, in the left forearm, Oxygen administered. via nasal cannula. 19:41 Coronavirus screen:. vc1 Triage Assessment: 11:00 General: Appears unkempt, Behavior is drowsy. Pain: Complains of pain in abdomen Pain vg1 currently is 5 out of 10 on a pain scale. EENT: Oral mucosa is dry. Neuro: Level of Consciousness is alert, Oriented to person, place, time, situation. Cardiovascular: Capillary refill is > 3 seconds in bilateral fingers. Respiratory: Airway is patent Respiratory effort is even, labored, Respiratory pattern is tachypnea Breath sounds are diminished in left posterior lower lobe. GI: Reports nausea, vomiting. : No signs and/or symptoms were reported regarding the genitourinary system. Derm: Skin temperature is cool. Musculoskeletal: Circulation, motion, and sensation intact. Historical: - Allergies: 12:01 No Known Allergies; vg1 - PMHx: 12:01 Bipolar disorder; Cutter; drug abuse; Seizures; vg1 - Social history:: Smoking status: Patient reports the use of cigarette tobacco products, Patient uses street drugs, heroin, marijuana, Methamphetamine (Meth). - Family history:: not pertinent. - Hospitalizations: : No recent hospitalization is reported. Screenin:00 Abuse screen: Denies threats or abuse. Nutritional screening: No deficits noted. vg1 Tuberculosis screening: No symptoms or risk factors identified. Fall Risk No fall in past 12 months (0 pts). No secondary diagnosis (0 pts). IV access (20 points). Ambulatory Aid- None/Bed Rest/Nurse Assist (0 pts). Gait- Normal/Bed Rest/Wheelchair (0 pts) Mental Status- Oriented to own ability (0 pts). Total Leal Fall Scale indicates No Risk (0-24 pts). Assessment: 11:00 Reassessment: SEE TRIAGE. vg1 12:00 Reassessment: Patient appears in no apparent distress at this time. No changes from vg1 previously documented assessment. Patient and/or family updated on plan of care and expected duration. Pain level reassessed. pt drowsy and AO x3. Neuro: Hoskins Agitation-Sedation Scale (RASS): -1 Drowsy. 12:00 Reassessment: Respiratory at bedside. vg1 12:20 Reassessment: completed NS administered by EMS, total 1 L. vg1 13:00 Reassessment: Patient appears in no apparent distress at this time. pt resting with vg1 eyes closed. 14:00 Reassessment: Patient appears in no apparent distress at this time. Patient and/or vg1 family updated on plan of care and expected duration. Pain level reassessed. pt stated "i feel like I need to pee but im unable to" provider notified. 14:00 Neuro: Hoskins Agitation-Sedation Scale (RASS): -1 Drowsy. vg1 14:30 Reassessment: pt gave Verbal permission to call mother, Venus [phone] to give vg1 information of hospital stay. 15:00 Reassessment: Patient appears in no apparent distress at this time. pt resting with vg1 eyes closed; pt mother contacted and notified of pt situatuion. 15:50 Reassessment: pt mother at bedside. vg1 16:00 Reassessment: Patient appears in no apparent distress at this time. Patient and/or vg1 family updated on plan of care and expected duration. Pain level reassessed. Patient is alert, oriented x 3, equal unlabored respirations, skin warm/dry/pink. 16:59 Reassessment: Patient appears in no apparent distress at this time. pt resting with vg1 eyes closed. 19:41 Reassessment: Patient and/or family updated on plan of care and expected duration. Pain vc1 level reassessed. Patient is alert, oriented x 3, equal unlabored respirations, skin warm/dry/pink. Patient states symptoms have improved. Vital Signs: 11:00 BP 107 / 82; Pulse 91; Resp 26; Temp 97.5(TE); Pulse Ox 85% on 4 lpm NC; Weight 72.57 vg1 kg; Height 6 ft. 1 in. (185.42 cm); Pain 5/10; 11:10 BP 102 / 78; Pulse 97; Resp 23; Pulse Ox 91% on 15% Non-rebreather mask; vg1 12:00 BP 105 / 79; Pulse 95; Resp 16; Pulse Ox 93% on 4 lpm NC; vg1 12:45 BP 111 / 77; Pulse 98; Resp 19; Pulse Ox 100% on BiPAP; vg1 13:00 BP 110 / 81; Pulse 98; Resp 14; Pulse Ox 100% on BiPAP; vg1 13:20 BP 112 / 88; Pulse 96; Resp 12; Pulse Ox 100% on BiPAP; vg1 13:40 BP 112 / 84; Pulse 100; Resp 16; Pulse Ox 100% on BiPAP; vg1 14:00 BP 123 / 91; Pulse 100; Resp 18; Pulse Ox 97% on BiPAP; vg1 14:20 BP 116 / 83; Pulse 97; Resp 17; Pulse Ox 100% on BiPAP; vg1 14:40 BP 119 / 88; Pulse 96; Resp 16; Pulse Ox 99% on BiPAP; vg1 15:00 BP 104 / 89; Pulse 95; Resp 20; Pulse Ox 99% on BiPAP; vg1 15:20 BP 113 / 91; Pulse 100; Resp 16; Pulse Ox 99% on BiPAP; vg1 15:48 BP 142 / 96; Pulse 110; Resp 19; Pulse Ox 100% on BiPAP; vg1 16:00 BP 105 / 78; Pulse 103; Resp 20; Pulse Ox 99% on BiPAP; vg1 16:20 BP 113 / 89; Pulse 99; Resp 16; Pulse Ox 98% on BiPAP; vg1 17:00 BP 116 / 87; Pulse 97; Resp 14; Pulse Ox 97% on BiPAP; vg1 19:15 BP 118 / 88; Pulse 95; Resp 23; Pulse Ox 92% on R/A; vc1 11:00 Body Mass Index 21.11 (72.57 kg, 185.42 cm) vg1 ED Course: 11:00 Arm band placed on. EKG completed in triage. Results shown to MD. vg1 11:19 EKG done, by ED staff. tp1 11:21 Patient arrived in ED. iw 11:23 Elmer Sidhu MD is Attending Physician. rn 11:25 Desi Carbajal RN is Primary Nurse. vg1 11:46 XRAY Chest (1 view) In Process Unspecified. EDMS 11:48 Inserted saline lock: 20 gauge in left upper arm, using aseptic technique. tp1 11:58 Constantine Michelle MD is Hospitalizing Provider. rn 12:00 First set of blood cultures drawn by me. tp1 12:00 Patient has correct armband on for positive identification. Placed in gown. Bed in low vg1 position. Call light in reach. Side rails up X2. Client placed on continuous cardiac and pulse oximetry monitoring. NIBP monitoring applied. 12:01 Triage completed. vg1 12:30 ABG's: Patient ID and date of verified, drawn from right radial artery, Hossein's eb2 test done and positive, direct pressure held for 5 minutes, no bleeding noted, specimen analyzed, results given to provider, patient tolerated well. Patient placed on BiPAP. Inspiratory pressure: 10. Expiratory pressure: 5. FIO2: 40. Rate: 12. Education provided to the patient regarding: Other: PATIENT EDUCATED ON BIPAP MACHINE. 13:04 Second set of blood cultures drawn by me. tp1 14:30 Coronel cath inserted, using sterile technique, 16 Fr., by me, balloon inflated, to tp1 gravity drainage, urine specimen collected. 14:45 Urine collected: Coronel catheter specimen, tea colored, odor noted. tp1 15:59 COVID swab sent to lab. tp1 17:10 No provider procedures requiring assistance completed. Patient admitted, IV remains in vg1 place. 19:20 Primary Nurse role handed off by Desi Carbajal RN mw2 Administered Medications: 11:45 Drug: Zofran (Ondansetron) 4 mg Route: IVP; Site: left forearm; vg1 13:17 Follow up: Response: No adverse reaction; Nausea is decreased vg1 13:16 Drug: Zosyn (piperacillin-tazobactam) 3.375 grams Route: IVPB; Infused Over: 60 mins; vg1 Site: left upper arm; 14:38 Follow up: Response: No adverse reaction; IV Status: Completed infusion; IV Intake: tp1 100ml Medication: 17:10 VIS not applicable for this client. vg1 Intake: 14:38 IV: 100ml; Total: 100ml. tp1 Outcome: 11:59 Decision to Hospitalize by Provider. rn 16:00 Admitted to ICU vg1 16:00 Condition: stable 16:00 Instructed on the need for admit. 20:17 Patient left the ED. bb Signatures: Dispatcher [employer] EDMS Marielle Najera RN RN bb Williams, Irene, RN RN iw Nieto, Roman, MD MD rn Westbrook, MyKena mw2 Saba Crouch, R/T R/T 2 Desi Carbajal RN RN vg1 Yessenia Deleon tp1 Johana Bustamante RN RN vc1 Corrections: (The following items were deleted from the chart) 11:52 11:51 Inserted saline lock: 20 gauge in left upper arm, using aseptic technique. tp1 tp1 12:20 11:00 Care prior to arrival: IV initiated. 20 GA, in the left forearm, Oxygen vg1 administered. via nasal cannula, vg1 14:15 14:00 Reassessment: Patient appears in no apparent distress at this time. Patient vg1 and/or family updated on plan of care and expected duration. Pain level reassessed. Patient is alert, oriented x 3, equal unlabored respirations, skin warm/dry/pink. pt stated "i feel like I need to pee but im unable to" provider notified. vg1 14:38 14:36 Coronel cath inserted, using sterile technique, 16 Fr., by ky, balloon inflated, to tp1 gravity drainage, urine specimen collected. tp1
[2021-09-07 12:04] LABS: Protime INR 1.06
[2021-09-07 12:13] LABS: Albumin 3.6 g/dL (3.4-5.0); Bilirubin Direct 0.1 mg/dL (0-0.2); Bilirubin Total 0.3 mg/dL (0.2-1.0); Potassium 4.5 mmol/L (3.5-5.1); Protein, Total 6.8 g/dL (6.4-8.2)
[2021-09-07] MEDS ORDERED: NA CHLORIDE 0.9% 100 ML ONE (12:33)
[2021-09-07] MEDS ORDERED: PIPERACIL/TAZO 3.375 GM VIAL IV ONE (12:33)
[2021-09-07] MEDS ORDERED: Ringers Lactate 1,000 ML IV SCH (14:00)
[2021-09-07 14:44] LABS: Urine Blood 3+ (Negative); Urine Glucose 1+ (Negative); Urine Protein 2+ (Negative); Urine Specific Gravity >=1.030 (1.005-1.030); Urine pH 5.5 (5.0-7.0)
[2021-09-07 14:57] LABS: Barbiturates NEGATIVE (NEGATIVE); Benzodiazepines POSITIVE (NEGATIVE); Cocaine POSITIVE (NEGATIVE); METHAMPHETAM POSITIVE (NEGATIVE); Methadone NEGATIVE (NEGATIVE); Opiates NEGATIVE (NEGATIVE); Phencyclidine NEGATIVE (NEGATIVE); THC Cannibis POSITIVE (NEGATIVE)
[2021-09-07 16:21] VITALS: BMI 21.1
[2021-09-07] MEDS ORDERED: Ringers Lactate 1,000 ML IV ONE (16:31)
--- NOTE | 2021-09-07 17:18 | P.HP ---
Certification for Inpatient Patient admitted to: Inpatient With expected LOS: >2 Midnights Patient will require the following post-hospital care: None Practitioner: I am a practitioner with admitting privileges, knowledge of patient current condition, hospital course, and medical plan of care. Services: Services provided to patient in accordance with Admission requirements found in Title 42 Section 412.3 of the Code of Federal Regulations Patient History Date of Service: 09/07/21 Reason for admission: Acute Hypercapnic Hypoxic Respiratory Failure History of Present Illness: Mr. Elliot Paige is a 26 year old male who has a past medical history of bipolar disorder and depression who presents to the [facility] Emergency Department for acute respiratory failure. History is very limited as he does not recall many of the events of this morning. He states that he and his girlfriend checked into a motel and were snorting heroin. He states that she had difficulty waking up, so he called 911. He states that EMS arrived, but he does not remember any further details. He is currently alert and oriented x4 to person, place, time, and situation. He mentions that this was his first time using heroin in over 2 years. He admits to using methamphetamines and marijuana, somewhat regularly. On review of systems, he reports shortness of breath, but denies any fevers, chills, headaches, dizziness, chest pain, palpitations, wheezing, cough, abdominal pain, nausea/vomiting, diarrhea, constipation, hematochezia, melena, dysuria, hematuria, myalgia, or any other symptoms. He presented to the Emergency Department for further evaluation. Upon presentation, his vital signs were notable for a heart rate of 91 bpm and a respiratory rate of 26 breaths/min. His laboratory studies were notable for a creatinine of 1.85 (baseline around 0.8), an AST of 435, an ALT of 240, and an initial lactate of 3.0. Blood cultures x 2 were obtained. EKG revealed sinus tachycardia without STEMI criteria. Chest x-ray revealed, "bilateral pulmonary opacities are present with somewhat nodular appearance, which probably represents bilateral infection. Given the nodular appearance, septic emboli is also possible. The heart is normal in size. No displaced fractures." In the Emergency Department, he was given ondansetron. He was admitted to the General Internal Medicine service for further evaluation. Allergies No Known Allergies Allergy (Unverified 07/31/16 01:36) Home medications list reviewed: Yes - Past Medical/Surgical History Has patient received pneumonia vaccine in the past: No -: Bipolar Disorder -: Depression -: Substance Use Disorder - Methamphetamines, THC Past Surgical History: Patient denies surgical history - Family History Family History: Reviewed- Non-Contributory - Social History Smoking Status: Current every day smoker Alcohol use: No Review of Systems General: Unremarkable Eyes: Unremarkable ENT: Unremarkable Respiratory: Shortness of Breath Cardiovascular: Unremarkable Gastrointestinal: Unremarkable Genitourinary: Unremarkable Musculoskeletal: Unremarkable Integumentary: Unremarkable Neurological: Weakness, Confusion Physical Examination - Vital Signs Temperature: 97.5 F Blood Pressure: 107/82 Pulse: 91 Respirations: 26 Pulse Ox (%): 85 (room air) - Physical Exam General: Alert, Oriented x3, Mild distress HEENT: Atraumatic, Mucous membr. moist/pink, EOMI, Sclerae nonicteric Neck: Supple, 2+ carotid pulse no bruit, Without JVD or thyroid abnormality Respiratory: Diminished, Crackles/rales Cardiovascular: No edema, Regular rate/rhythm, Normal S1 S2, No gallops, No rubs, No murmurs Gastrointestinal: Normal bowel sounds, Soft and benign, No tenderness, No rebound, No guarding Musculoskeletal: No clubbing, No swelling Integumentary: Other (multiple well-healed scars over trunk and bilateral upper extremities from prior self-injury) Neurological: Normal speech, Cranial nerves 3-12 intact, Normal affect - Studies Laboratory Data (last 24 hrs) 09/07/21 11:45: PT 11.7, INR 1.06, APTT 26.9 09/07/21 11:45: WBC 11.0 H, Hgb 14.3, Hct 43.5, Plt Count 236 09/07/21 11:45: Sodium 140, Potassium 4.5, BUN 21 H, Creatinine 1.85 H, Glucose 107 H, Total Bilirubin 0.3, AST 435 H*, ALT 240 H, Alkaline Phosphatase 72 Assessment and Plan - Plan # Acute Hypercapnic Hypoxic Respiratory Failure - likely secondary to Accidental Drug Overdose He reportedly had an SPO2 of 85% on room air on presentation. Currently, he is on BiPAP, with improvement of his SpO2 readings to 100%. - Evaluation thus far: - ABG = pH 7.30, PCO2 52.4, PO2 92.7 -after about 5 hours of BiPAP. - Chest x-ray = concerning for bilateral infection vs aspiration - Management plan: - S/P naloxone by EMS - Consulted Respiratory Therapy - Supplemental oxygen to maintain SpO2 > 92% - Started piperacillin-tazobactam - Encouraged incentive spirometry # Severe Sepsis likely secondary to Bilateral (Aspiration?) Pneumonia He meets SIRS criteria based on HR > 90 bpm and RR > 20 breaths/min, and the suspected source is pneumonia. Severe sepsis is suspected due to concern for tissue hypoperfusion/organ dysfunction based on acute respiratory failure requiring BiPAP and lactic acid > 2 mmol/L. - Sepsis order set was initiated - Lactate trend was 3.0 -> 1.8 - Blood cultures drawn before antibiotics - Broad spectrum antibiotics started: piperacillin-tazobactam - In regards to fluids: - 30 mL/kg of IV fluids was not administered given SBP > 90, MAP > 65, lactic acid < 4 # Suspect Acute Drug-Induced Liver Injury His last LFTs on file from 06/19/2020 were within normal limits. - UDS positive for cocaine, benzodiazepines, amphetamines, and THC - Avoid hepatotoxic medications - Limit Acetaminophen - Ethanol level < 10 - Acetaminophen level pending - Ordered HCV serologies - Ordered HIV testing - Verbal permission for testing obtained # KDIGO Stage II Acute Kidney Injury - Creatinine = 1.85 (baseline creatinine ~0.8) - Urinalysis = 1+ ketones, 3+ blood, 2+ protein - IV Lactated Ringers' @ 100 mL/hr - Monitor creatinine and urine output - If worsening, obtain renal ultrasound - Renally dose medications # Substance Use Disorder - Heroin, Methamphetamines, THC, Cocaine, Benzodiazepines - Extensive substance cessation counseling was provided # Bipolar Disorder # Depression - Reports that he is not on any medication at home Constantine Michelle MD Discharge Plan: Home Plan to discharge in: 48 Hours - Advance Directives Does patient have a Living Will: No Does patient have a Durable POA for Healthcare: No - Code Status/Comfort Care Code Status: Full Code
[2021-09-07 17:35] LABS: Arterial Blood Carboxyhemoglob 1.3 % (0-1.5); Blood Gas Oxyhemoglobin 94.4 % (94-97); Blood O2 Saturation 96.6 % (92-98.5)
[2021-09-07] MEDS: Ringers Lactate 1,000 ML IV SCH (19:00)
[2021-09-08] MEDS: Ringers Lactate 1,000 ML IV SCH ×2 (00:17→11:07)
[2021-09-08] MEDS: PIPER TAZO 3.375 GM in NA CHLORIDE 0.9% 100 ML IV SCH ×2 (00:18→09:12)
[2021-09-08] MEDS ORDERED: MORPHINE 2 MG/ML SYR IV ONE (02:12)
[2021-09-08 02:39] LABS: Urine Appearance Clear (Clear); Urine Bilirubin Negative (Negative); Urine Blood 2+ (Negative); Urine Color Yellow (Yellow); Urine Glucose Negative (Negative); Urine Protein Negative (Negative); Urine Urobilinogen 0.2 mg/dL (0.2-1.0); Urine pH 5.5 (5.0-7.0)
[2021-09-08 03:35] LABS: Urine Bacteria <20 /HPF (NONE SEEN); Urine RBC <5 /HPF (NONE SEEN); Urine Urothelial Cells <5 /HPF (NONE SEEN)
[2021-09-08 05:06] LABS: Absolute Lymphocytes (CBC) 1.7 K/uL (0.7-4.9); Hematocrit 37.5 % (39.6-49.0); Lymphocytes % 12.6 % (15.3-44.8); MCV 92.3 fL (80-100); MPV 8.7 fL (7.6-11.3); RBC Red Blood Cell Count 4.06 M/uL (4.33-5.43)
[2021-09-08 05:54] LABS: Albumin 2.8 g/dL (3.4-5.0); Bilirubin Total 0.6 mg/dL (0.2-1.0); Magnesium 1.9 mg/dL (1.8-2.4); Phosphorus 2.8 mg/dL (2.5-4.9); Potassium 3.8 mmol/L (3.5-5.1); Protein, Total 5.6 g/dL (6.4-8.2)
[2021-09-08] MEDS ORDERED: ENOXAPARIN 40 MG/0.4 ML SQ SCH (09:00)
[2021-09-08 12:46] VITALS: O2SAT 95
--- NOTE | 2021-09-08 13:48 | EKG ---
Test Date: 2021-09-07 Test Time: 11:19:17 Pole Incisor Operator: TP MEASUREMENT RESULTS: Intervals: Rate: 96 VA: 124 QRSD: 94 QT: 382 QTc: 482 Grover: P: 76 VA: 124 QRS: 79 T: 75 INTERPRETIVE STATEMENTS: Normal sinus rhythm Prolonged QT Abnormal ECG Compared to ECG 07/03/2020 12:16:24 Prolonged QT interval now present Atrial premature complex(es) no longer present Electronically Signed On 09-08-21 13:46:04 CDT by Yon Solis
[2021-09-08 14:17] VITALS: TEMP 97.7
[2021-09-08 15:59] VITALS: BP 111/76
[2021-09-10 19:32] LABS: HIV AG/AB 4TH GEN Non-reactive (Non-reactive)
--- NOTE | 2021-09-11 10:36 | P.DS ---
Discharge Date: 09/08/21 Disposition: ROUTINE DISCHARGE Discharge Condition: GOOD Reason for Admission: Acute Hypercapnic Hypoxic Respiratory Failure Brief History of Present Illness: Mr. Elliot Paige is a 26 year old male who has a past medical history of bipolar disorder and depression who presents to the [facility] Emergency Department for acute respiratory failure. History is very limited as he does not recall many of the events of this morning. He states that he and his girlfriend checked into a motel and were snorting heroin. He states that she had difficulty waking up, so he called 911. He states that EMS arrived, but he does not remember any further details. He is currently alert and oriented x4 to person, place, time, and situation. He mentions that this was his first time using heroin in over 2 years. He admits to using methamphetamines and marijuana, somewhat regularly. On review of systems, he reports shortness of breath, but denies any fevers, chills, headaches, dizziness, chest pain, palpitations, wheezing, cough, abdominal pain, nausea/vomiting, diarrhea, constipation, hematochezia, melena, dysuria, hematuria, myalgia, or any other symptoms. He presented to the Emergency Department for further evaluation. Upon presentation, his vital signs were notable for a heart rate of 91 bpm and a respiratory rate of 26 breaths/min. His laboratory studies were notable for a creatinine of 1.85 (baseline around 0.8), an AST of 435, an ALT of 240, and an initial lactate of 3.0. Blood cultures x 2 were obtained. EKG revealed sinus tachycardia without STEMI criteria. Chest x-ray revealed, "bilateral pulmonary opacities are present with somewhat nodular appearance, which probably represents bilateral infection. Given the nodular appearance, septic emboli is also possible. The heart is normal in size. No displaced fractures." In the Emergency Department, he was given ondansetron. He was admitted to the General Internal Medicine service for further evaluation. Hospital Course: Patient is much more awake and alert. Patient's mother talked to him about his girlfriend passing away. Patient was very upset. He is wanting to go home. Clinically he is stable for discharge. He will follow-up with his PCP as an outpatient. We will give him paperwork in case he needs help for substance abuse. Social work will meet him prior to discharge. Vital Signs/Physical Exam: Temp Pulse Resp BP Pulse Ox 97.7 F 94 H 20 111/76 95 09/08/21 12:00 09/08/21 15:00 09/08/21 15:00 09/08/21 15:00 09/08/21 15:00 General: Alert, In no apparent distress, Oriented x3 Laboratory Data at Discharge: WBC 13.3 K/uL (4.3-10.9) H D 09/08/21 04:49 Hgb 12.6 g/dL (13.6-17.9) L 09/08/21 04:49 Hct 37.5 % (39.6-49.0) L 09/08/21 04:49 Plt Count 155 K/uL (152-406) D 09/08/21 04:49 PT 11.7 SECONDS (9.5-12.5) 09/07/21 11:45 INR 1.06 09/07/21 11:45 APTT 26.9 SECONDS (24.3-36.9) 09/07/21 11:45 Sodium 136 mmol/L (136-145) 09/08/21 04:49 Potassium 3.8 mmol/L (3.5-5.1) 09/08/21 04:49 BUN 13 mg/dL (7-18) 09/08/21 04:49 Creatinine 1.15 mg/dL (0.55-1.3) 09/08/21 04:49 Glucose 103 mg/dL (74-106) 09/08/21 04:49 Phosphorus 2.8 mg/dL (2.5-4.9) 09/08/21 04:49 Magnesium 1.9 mg/dL (1.8-2.4) 09/08/21 04:49 Total Bilirubin 0.6 mg/dL (0.2-1.0) 09/08/21 04:49 AST 393 U/L (15-37) H* 09/08/21 04:49 ALT 201 U/L (12-78) H 09/08/21 04:49 Alkaline Phosphatase 56 U/L (45-117) 09/08/21 04:49 Home Medications: Amox/Clavulanate [Augmentin 875-125 Tab] 1 each PO BID #14 tab 09/08/21 New Medications: Amox/Clavulanate [Augmentin 875-125 Tab] 1 each PO BID #14 tab Physician Discharge Instructions: PROBLEM: Substance Abuse (Overdose) Pneumonia GOAL: Clear understanding of disease process INSTRUCTIONS: Take medications as prescribed Return to ER if experiencing any chest pain, shortness of breath, altered mental status Diet: Regular Activity: Fall precautions DME DME: Date Ordered: Name of Company: [employer] Services Needed: Name of Company: Date or Referral: IMMUNIZATION Influenza Vaccine Indicated: Influenza Vaccine Given: Date Given: Pneumonia Vaccine Indicated: No Pneumonia Vaccine Given: Date Given: -DC IV and DC home -Follow-up with PCP in 1 to 2 weeks -Please call Dr. Meadows at [phone] if any questions regarding hospital stay -Please call nursing station at [phone] if any nursing or medication questions -Return to the emergency room if symptoms worsen Diet: Regular Activity: Fall precautions Followup: NONE,NONE [Primary Care Provider] - Time spent managing pt's care (in minutes): 35
== END 2021-09-08 15:56 | disposition home or self-care (01) | DRG 871 ==
LOC: ER 11:04 → ERHOLD 13:52 → 3RD-ICU 19:31
PROVIDERS: ADMIT Internal Medicine; ATTEND Internal Medicine
DX: A41.9 Sepsis, unspecified organism (principal); J18.9 Pneumonia, unspecified organism; J96.02 Acute respiratory failure with hypercapnia; J96.01 Acute respiratory failure with hypoxia; N17.9 Acute kidney failure, unspecified; R65.20 Severe sepsis without septic shock; F31.9 Bipolar disorder, unspecified; T40.1X1A Poisoning by heroin, accidental (unintentional), initial encounter; T43.621A Poisoning by amphetamines, accidental (unintentional), initial encounter; T40.5X1A Poisoning by cocaine, accidental (unintentional), initial encounter; T42.4X1A Poisoning by benzodiazepines, accidental (unintentional), initial encounter; T40.711A Poisoning by cannabis, accidental (unintentional), initial encounter; K71.8 Toxic liver disease with other disorders of liver; Y92.59 Other trade areas as the place of occurrence of the external cause; F17.210 Nicotine dependence, cigarettes, uncomplicated; Z20.822 Contact with and (suspected) exposure to COVID-19
CPT/HCPCS: 36415; 51702; 71045; 80048; 80053; 80076; 80307; 80320; 80329; 81003; 81015; 82805; 83605; 83735; 84100; 85025; 85610; 85730; 86803; 87040; 87389; 93005; 94010; 96365; 96375; 99285; J1650; J2270; J2405; J2543; J7120; U0003

== ENCOUNTER 2022-10-22 15:57 | Emergency (ER) | payer SELFPAY ==
--- OUTSIDE RECORDS SUMMARY | 2022-10-22 16:01 | XMS REPORT | Continuity of Care Document ---
:1995 Author Organization [facility] t Address [address] [facility]. [address] [place] [address] Care Team Providers Name Role Phone PCP, PATIENT DOES NOT HAVE A Primary Care Physician Unavaila LUIS CARLOS Herrera Attending Clinician Unavailable Luis Carlos Estrada MD Attending Clinician DEEPAK PELLETIER Attending Clinician Unavailable Deepak Devine Attending Clinician TRUDY GREENWOOD Attending Clinician Unavailable Marco Kaufman Attending Clinician MARCO GUERRERO Attending Clinician Unavailable LUIS CARLOS ESTRADA Admitting Clinician Unavailable MARCO GUERRERO Admitting Clinician Unavailable Payers Payer Name Policy Type Policy Number Effective Date Expiration Date Jessy MATTHEW [id number] [facility] ([facility]) Problems Condition Condition Condition Status Onset Resolution Last Treating Co mments Source Name Details Category Date Date Treatment Clinician Date Suicidal Suicidal Disease Active Unive rs overdose, overdose, 2-25 ity of initial initial 00:00: [place] encounter encounter 00 [facility] Suicidal Suicidal Disease Active Unive rs overdose, overdose, 2-25 ity of initial initial 00:00: [place] encounter encounter 00 [facility] Cough Cough Disease Active [place] -22 Health 00:00: 00 Suicidal Suicidal Disease Active [facility] Allergies, Adverse Reactions, Alerts Allergy Allergy Status Severity Reaction(s) Onset Inactive Treating Comm ents Source Name Type Date Date Clinician NO KNOWN Drug Active [facility] Social History Social Habit Start Date Stop Date Quantity Comments Source History of tobacco Cigarette Smoker University use [facility] Sexual orientation [facility] Gender identity [place] Shan gonzáles Exposure to 2022-05-26 2022-06-05 Not sure [facility] SARS-CoV-2 (event) 00:00:00 01:53:00 [facility] Tobacco use and 2022-06-05 2022-06-05 Smokeless Universit y of exposure 00:00:00 00:00:00 tobacco non-user [facility] History of Social 2022-03-27 2022-03-27 [facility] function 00:00:00 00:00:00 Alcohol intake 2020-10-01 2020-10-01 [facility] 00:00:00 non-drinker of alcohol (finding) Sex Ass[birth year] [facility]th 00:00:00 00:00:00 Smoking Status Start Date Stop Date Source Never smoked tobacco [facility] th Smokes tobacco daily 2022-06-05 00:00:00 [facility] Current some day smoker 2019-06-27 00:00:00 [facility] Medications Ordered Filled Start Stop Current Ordering Indication Dosage Frequency Signature Comments Components Source Medication Medication Date Date Medication? Clinician (SIG) Name Name ibuprofen Yes [id number] 800mg Take 1 Univers 800 mg 6-20 tablet by ity of tablet 00:00: mouth [place] 00 every 8 Medical (eight) Branch hours as needed for Pain (scale 4-6). cephALEXin Yes [id number] 500mg Take 1 Univers (KEFLEX) 6-20 capsule by ity o f 500 mg 00:00: mouth in [place] capsule 00 the Medical morning Branch and 1 capsule at noon and 1 capsule in the evening. NaCl 0.9% 2022- No 1000mL at 999 Uni vers (NS) bolus 06-05 mL/hr, ity of infusion 08:30: 09:02 1,000 mL, [place] 1,000 mL 00 :00 IV Medical Infusion, Branch ONCE, 1 dose, On Wed06/05/22 at 0330, STAT ketorolac 2022- No 30mg 30 mg, Unive rs (TORADOL) 06-05 Slow IV ity of injection 08:30: 07:46 Push, [place] 30 mg 00 :00 ONCE, 1 Medical dose, On Branch Wed06/05/22 at 0330, LIAM metoclopram 2022- No 10mg 10 mg, Uni vers jaclyn HCl 06-05 Slow IV ity of (REGLAN) 07:30: 07:46 Push, [place] injection 00 :00 ONCE, 1 Medical 10 mg dose, On Branch Wed06/05/22 at 0230, LIAM cefTRIAXone Yes 250mg 250 mg, Un neda (ROCEPHIN) 06-26 Intramuscu ity of injection 14:30: lar[place] Q24H, [place] 250 mg 00 First dose Medical on [facility] 06/27/19 at 0930, Until Discontinu ed, LIAM
Re ason for Anti-Infec tive: Documented Infection< br>Documen grace Infection Site: Pelvic
Duration of Therapy: Other (see Comments) azithromyci 2020- No 1000mg 1,000 mg, Univers n 06-26 Oral, ity of (ZITHROMAX) 14:30: 13:48 ONCE, 1 [place] tablet 00 :00 dose, [facility] Medical 1,000 mg 06/27/19 at [facility] h 0930, LIAM
Re ason for Anti-Infec tive: Documented Infection< br>Documen grace Infection Site: Pelvic
Duration of Therapy: Other (see Comments) ibuprofen 2019- No 600mg 600 mg, Uni vers (IBU) 06-26 Oral, ity of tablet 600 13:45: 13:48 ONCE, 1 [place] mg 00 :00 dose, Tue Medical 06/27/19 at Branch 0845, LIAM doxycycline Yes [id number] 100mg Take 1 Univers hyclate 100 06-26 capsule by it y of mg capsule 00:00[place] (two) Medical times Branch daily. ibuprofen Yes [id number] 800mg Take 1 Univers 800 mg 06-26 tablet by ity of tablet 00:00: mouth [place] 00 every 8 Medical (eight) Branch hours as needed for Pain (scale 4-6). doxycycline No [id number] 100mg Take 1 Univers hyclate 100 06-26 capsule by i ty of mg capsule 00:00: 00:00 mouth 2 [place] 00 :00 (two) Medical times Branch daily. ibuprofen 2022- No [id number] 800mg Take 1 Univers 800 mg 06-26- tablet by ity of tablet 00:00: 00:00 mouth [place] 00 :00 every 8 Medical (eight) Branch hours as needed for Pain (scale 4-6). famotidine Yes Suicidal 20mg Q.5D Take 1 H arris (PEPCID) 20 1-22 ideation tablet by Health mg tablet 00:00: mouth 2 00 times daily. famotidine Yes Suicidal 20mg Q.5D Take 1 H [place] (PEPCID) 20 1-22 ideation tablet by Health mg tablet 00:00: mouth 2 00 times daily. Vital Signs Vital Name Observation Time Observation Value Comments Source Diastolic blood 2022-08-18 09:00:00 77 mm[Hg] Unive rsity of pressure [facility] Heart rate 2022-08-18 09:00:00 71 /min Universi ty of [facility] Oxygen saturation in 2022-08-18 09:00:00 98 /min [facility] Arterial blood by [facility] Pulse oximetry Branch Systolic blood 2022-08-18 09:00:00 109 mm[Hg] Univer sity of pressure [place] [facility] Body temperature 2022-08-18 06:08:00 37.28 Fatoumata Univ ersity of [place] [facility] Respiratory rate 2022-08-18 06:08:00 18 /min Univ ersity of [place] [facility] Body height 2022-08-18 06:08:00 185.4 cm Universi ty of [place] [facility] Body weight 2022-08-18 06:08:00 72.576 kg [facility]i ty [facility] [place] [facility] BMI 2022-08-18 06:08:00 21.11 kg/m2 [facility]i ty [facility] [place] [facility] Systolic blood 2022-06-05 06:53:00 132 mm[Hg] Univer sity of pressure [place] [facility] Diastolic blood 2022-06-05 06:53:00 88 mm[Hg] Unive rsity of pressure [place] [facility] Heart rate 2022-06-05 06:53:00 60 /min Universi ty [facility] [place] [facility] Body temperature 2022-06-05 06:53:00 36.5 Fatoumata Univ ersity of [place] [facility] Respiratory rate 2022-06-05 06:53:00 14 /min Univ ersity of [place] [facility] Body height 2022-06-05 06:53:00 185.4 cm [facility]i ty [facility] [place] [facility] Body weight 2022-06-05 06:53:00 76.431 kg Universi ty [facility] [place] [facility] BMI 2022-06-05 06:53:00 22.23 kg/m2 Universi ty [facility] [place] [facility] Oxygen saturation in 2022-06-05 06:53:00 100 /min University of Arterial blood by [facility] Pulse oximetry Branch Systolic blood 2019-06-27 14:00:00 115 mm[Hg] Univer sity of pressure [place] [facility] Diastolic blood 2019-06-27 14:00:00 80 mm[Hg] Unive rsity of pressure [place] [facility] Heart rate 2019-06-27 14:00:00 78 /min Universi ty [facility] [place] [facility] Respiratory rate 2019-06-27 14:00:00 18 /min Univ ersity of [place] [facility] Oxygen saturation in 2019-06-27 14:00:00 98 /min University of Arterial blood by [facility] Pulse oximetry Branch Body temperature 2019-06-27 12:27:00 36.28 Fatoumata [facility] ersity of [place] [facility] [place] Body height 2019-06-27 12:27:00 185.4 cm Universi ty of [place] [facility] [place] Body weight 2019-06-27 12:27:00 74.844 kg Universi ty of [place] [facility] BMI 2019-06-27 12:27:00 21.77 kg/m2 Universi ty of [facility] Systolic blood 2019-06-27 14:00:00 115 mm[Hg] Univer sity of pressure [facility] Diastolic blood 2019-06-27 14:00:00 80 mm[Hg] Unive rsity of [facility] Heart rate 2019-06-27 14:00:00 78 /min Universi ty of [facility] Respiratory rate 2019-06-27 14:00:00 18 /min [facility] Oxygen saturation in 2019-06-27 14:00:00 98 /min [facility] Arterial blood by [facility] Pulse oximetry Branch Body temperature 2019-06-27 12:27:00 36.28 Fatoumata [facility] ersity of [facility] Body height 2019-06-27 12:27:00 185.4 cm Universi ty of [place] [facility] [place] Body weight 2019-06-27 12:27:00 74.844 kg Universi ty of [facility] BMI 2019-06-27 12:27:00 21.77 kg/m2 Universi ty [facility] Procedures Procedure Date / Time Performed Performing Clinician Sourfred e [place] SIMPLE REPAIR 2022-08-18 09:10:00 Luis Carlos Estrada [facility] SCALP/NECK/AX/GENIT/TR Medical B ranch UNK 2.5CM/< NOTICE OF PRIVACY 2022-06-05 06:39:59 Doctor Unassigned, No Univ [facility] PRACTICES Name Medical Branch CONSENT/REFUSAL FOR 2022-06-05 06:37:55 Doctor Unassigned, No [facility] AND Name Medical Branch TREATMENT US TESTICULAR TORSION 2019-06-27 13:28:34 [facility] URINALYSIS 2019-06-27 12:36:00 Marco Guerrero [place] [facility] Plan of Care Planned Activity Planned Date Details Comments Source Future Scheduled Test 2022-11-29 00:00:00 IMM Influenza [facility] Seasonal (>/= 19 yrs) [code = IMM Influenza Seasonal (>/= 19 yrs)] Future Scheduled Test 2021-11-29 00:00:00 IMM Influenza [facility] Seasonal (>/= 19 yrs) [code = IMM Influenza Seasonal (>/= 19 yrs)] Future Scheduled Test 1996-02-24 00:00:00 COVID-19 Vaccine (#1) [facility] [code = COVID-19 Vaccine (#1)] Future Scheduled Test 1996-02-24 00:00:00 COVID-19 Vaccine (#1) [facility] [code = COVID-19 Vaccine (#1)] Encounters Start End Encounter Admission Attending Care Care Encounter Source Date/Time Date/Time Type Type Clinicians Facility Department ID 2021-05-30 Outpatient [facility] [id number] [place] 13:23:37 [id number] [facility] 2021-05-28 Outpatient [facility] [id number] [place] 12:10:13 [id number] [facility] 2022-08-18 2022-08-18 Emergency X [facility] ERT [id number] Univers 01:07:00 04:22:00 LUIS CARLOS acosta [facility] 2022-08-18 2022-08-18 Emergency [facility] [id number] Univers 01:07:00 04:22:00 Luis Carlos Jessy BONITA [id number] ity [facility] [id number] [facility] [id number] [place] [address] Branch 2022-06-05 2022-06-05 Emergency X [facility] ERT [id number] Univers 01:56:00 04:05:00 DEEPAK acosta [facility] 2022-06-05 2022-06-05 Emergency [facility] [id number] Univers 01:56:00 04:05:00 Deepak JONESWALLY [id number] i ty of [place] [id number] [facility] [id number] [place] [id number] Branch 2021-02-12 2021-02-12 Emergency [facility] [id number] [place] 14:44:00 14:45:00 TRUDY James th 2019-06-27 2019-06-27 Emergency [facility] [id number] 07:34:53 12:25:00 Marco R [place] [id number] [place] [id number] [place] [id number] 2019-06-27 2019-06-27 Emergency [facility] [id number] Univers 07:34:53 12:25:00 Marco R [place] [id number] i ty of [place] [id number] [facility] [id number] [facility] 084 Branch 2019-06-27 2019-06-27 Emergency X [facility] ERT [id number] Univers 07:34:53 12:25:00 MARCO ity of [facility] Results Test Test Test Results Result Source Description Time Comments Comments US TESTICULAR 2019-05- HISTORY: ?Left Univers ity of TORSION 28 testicular swelling. [facility] 13:31:22 TECHNIQUE: Entire Branch scrotum is evaluated in multiple planes without and withcolor Doppler imaging. FINDINGS: Both testes show homogeneous echo structure. Right testicle is4.9 x 2.2 x 3.2 cm (18.7 ml ). Left testicle is 4.6 x 2.1 x 3.4 cm in size(17.8 ml ). Small left scrotal hydrocele noted. Mild swelling of leftscrotal wall, moderate swelling of entire left epididymis and increasedvascularity noted in the left testis and left epididymis. CONCLUSIONS: Left epididymoorchitis. [facility], [facility] Results Inft User - 06/27/2019 8:32 AM CDTHISTORY: Left testicular swelling.TECHNIQUE: Entire scrotum is evaluated in multiple planes without and withcolor Doppler imaging.FINDINGS: Both testes show homogeneous echo structure. Right testicle is4.9 x 2.2 x 3.2 cm (18.7 ml ). Left testicle is 4.6 x 2.1 x 3.4 cm in size(17.8 ml ). Small left scrotal hydrocele noted. Mild swelling of leftscrotal wall, moderate swelling of entire left epididymis and increasedvascularity noted in the left testis and left epididymis.CONCLUSIONS: Left epididymoorchitis. URINALYSIS 2019-06-27 13:24:00 Test Item Value Reference Range Interpretation Comme nts APPEARANCE (test code = Hazy Clear A 1706103595) COLOR (test code = 9972565357) Yellow Yellow PH (test code = 2198001958) 4.8-8.0 SP GRAVITY (test code = 1.003-1.030 3325966565) GLU U QUAL (test code = Normal Normal 9243332959) BLOOD (test code = 5152892806) 1+ Negative A KETONES (test code = 4990318512) Negative Negative PROTEIN (test code = 2887-8) Negative Negative UROBILIN (test code = 2.0 mg/dL Normal A 9627872907) BILIRUBIN (test code = Negative Negative 1375175262) NITRITE (test code = 5992987779) Negative Negative LEUK ELLA (test code = 250/uL Negative A 6940981421) RBC/HPF (test code = 3369530736) See_Comment H [Automated message] The system which [employer] nerated this result transmit grace reference range: 0 - 3 HP F. The reference range was not used to interpret th is result as normal/abnormal . WBC/HPF (test code = 2322067670) >182 See_Comment H [Automated message] The system which ge nerated this result transmit grace reference range: 0 - 5 HP F. The reference range was not used to interpret th is result as normal/abnormal . BACTERIA (test code = Negative Negative 6121973298) MUCOUS (test code = 5529861014) Moderate Negative LPF A SQ EPITH (test code = <1 HPF 0489757102) Lab Interpretation (test code = Abnormal 08210-7) [facility] [place] [facility]
[2022-10-22] MEDS ORDERED: HALOPERIDOL LACT 5 MG/ML INJ ONE (16:20)
[2022-10-22] MEDS ORDERED: PROMETHAZINE INJ 25 MG/ML AMP ONE (16:20)
[2022-10-22] MEDS ORDERED: NA CHLORIDE 0.9% 50 ML ONE (16:21)
[2022-10-22] MEDS ORDERED: FAMOTIDINE 20 MG/2 ML VIAL IV ONE (16:21)
[2022-10-22] MEDS ORDERED: NA CHLORIDE 0.9% 1,000 ML ONE (16:21)
[2022-10-22 16:47] LABS: Absolute Lymphocytes (CBC) 2.5 K/uL (0.7-4.9); Hematocrit 42.3 % (39.6-49.0); MCV 92.2 fL (80-100); Platelets 218 thou/uL (152-406); RBC Red Blood Cell Count 4.58 M/uL (4.33-5.43)
[2022-10-22 16:50] LABS: Bilirubin Total 0.6 mg/dL (0.2-1.0); Potassium 3.7 mEq/L (3.5-5.1); Protein, Total 7.5 g/dL (6.4-8.2)
--- NOTE | 2022-10-22 17:13 | ER ---
Nurse's Notes [facility] Name: Elliot Paige Age: 27 yrs Sex: Male : 1995 Arrival Date: 10/22/2022 Time: 15:57 Bed 13 Private MD: Diagnosis: Nausea with vomiting, unspecified;Heat fatigue, transient Presentation: 10/22 15:54 Chief complaint: EMS states: PATIENT STATES WAS OUT IN THE HEAT AND AFTER GETTING db COOLED OFF ATE SOME HOT [place]ET[place] AND SPRITE AND THEN STARTED VOMITING. PATIENT CALLED 911 FROM A LAUNDRY MAT IN [place]. Coronavirus screen: Client denies travel out of the [place] in the last 14 days. At this time, the client does not indicate any symptoms associated with coronavirus-19. Ebola Screen: Patient negative for fever greater than or equal to 101.5 degrees Fahrenheit, and additional compatible Ebola Virus Disease symptoms Patient denies exposure to infectious person. Patient denies travel to an Ebola-affected area in the 21 days before illness onset. No symptoms or risks identified at this time. Initial Sepsis Screen: Does the patient meet any 2 criteria? No. Patient's initial sepsis screen is negative. Does the patient have a suspected source of infection? No. Patient's initial sepsis screen is negative. Risk Assessment: Do you want to hurt yourself or someone else? Patient reports no desire to harm self or others. Onset of symptoms was October 22, 2022. 15:54 Method Of Arrival: EMS: [facility] db 15:54 Acuity: MEGA 3 db Historical: - Allergies: 16:06 No Known Allergies; db - PMHx: 16:06 Bipolar disorder; Cutter; drug abuse; Seizures; db - Immunization history:: Adult Immunizations unknown. - Social history:: Smoking status: Patient reports the use of cigarette tobacco products, smokes one-half pack cigarettes per day. Screenin:41 [facility] ED Fall Risk Assessment (Adult) History of falling in the last 3 months, db including since admission No falls in past 3 months (0 pts) Confusion or Disorientation No (0 pts) Intoxicated or Sedated No (0 pts) Impaired Gait No (0 pts) Mobility Assist Device Used No (0 pt) Altered Elimination No (0 pt) Score/Fall Risk Level 0 - 2 = Low Risk Oriented to surroundings, Maintained a safe environment. Abuse screen: Denies threats or abuse. Denies injuries from another. Nutritional screening: No deficits noted. Tuberculosis screening: No symptoms or risk factors identified. Assessment: 16:40 Reassessment: Patient appears in no apparent distress at this time. Patient and/or db family updated on plan of care and expected duration. Pain level reassessed. Patient is alert, oriented x 3, equal unlabored respirations, skin warm/dry/pink. Patient states feeling better. General: Appears in no apparent distress. comfortable, Behavior is calm, cooperative. Pain: Complains of pain in abdomen. 17:15 Reassessment: Patient appears in no apparent distress at this time. Patient and/or db family updated on plan of care and expected duration. Pain level reassessed. Patient is alert, oriented x 3, equal unlabored respirations, skin warm/dry/pink. Patient states feeling better. Patient states symptoms have improved. Neuro: Level of Consciousness is awake, alert, obeys commands, Oriented to person, place, time, situation. 17:30 Reassessment: PATIENT DRINKING JUICE AND SODA AND GIVEN CRACKERS FOR PO CHALLENGE. db 18:01 Reassessment: Patient appears in no apparent distress at this time. PATIENT PROVIDED db ZOFRAN PO FOR NAUSEA AFTER EATING AND DRINKING. DENIES VOMITING. 18:03 Reassessment: PATIENT REPORTS FEELING BETTER AFTER ZOFRAN. Vital Signs: 15:54 BP 128 / 98; Pulse 82; Resp 16; Temp 98.4(O); Pulse Ox 98% ; Weight 74.84 kg; Height 6 db ft. 1 in. ; 16:30 BP 119 / 92; Pulse 64; Resp 16; Pulse Ox 100% ; db 17:45 BP 115 / 85; Pulse 65; Resp 16; Pulse Ox 99% on R/A; db 15:54 Body Mass Index 21.77 (74.84 kg, 185.42 cm) db Vitals: 16:30 Cardiac Rhythm Assessment Regular Sinus rhythm. ED Course: 16:01 Patient arrived in ED. snw 16:02 Zen[facility] Pederson [facility]C [facility] snw 16:02 Jose Urena MD is Attending Physician. snw 16:03 Lluvia Garcia RN is Primary Nurse. db 16:03 Inserted saline lock: 20 gauge in right forearm, using aseptic technique. ,using db aseptic technique. by RYAN Finney Blood collected. 16:06 Triage completed. db 16:07 Arm band placed on Patient placed in an exam room. db 16:41 Patient has correct armband on for positive identification. Bed in low position. Call db light in reach. Side rails up X2. Provided Education on:. Client placed on continuous cardiac and pulse oximetry monitoring. NIBP monitoring applied. Warm blanket given. 18:01 No provider procedures requiring assistance completed. IV discontinued, intact, db bleeding controlled, No redness/swelling at site. Administered Medications: 16:10 Drug: Promethazine IVP 12.5 mg Route: IVP; Site: right antecubital; db 18:02 Follow up: Response: No adverse reaction db 16:12 Drug: Haloperidol IVP 2.5 mg/50 mL 2.5 mg Route: IVP; Site: right antecubital; db 18:02 Follow up: Response: No adverse reaction db 16:12 Drug: Famotidine IVP 20 mg Route: IVP; Site: right antecubital; db 18:02 Follow up: Response: No adverse reaction db 16:15 Drug: NS 0.9% IV 1000 ml Route: IV; Rate: 1 bolus; Site: right antecubital; db 18:02 Follow up: Response: No adverse reaction; IV Status: Completed infusion; IV Intake: db 1000ml 17:53 Drug: Ondansetron PO 4 mg Route: PO; db 18:02 Follow up: Response: No adverse reaction db Medication: 18:01 VIS not applicable for this client. db Intake: 18:02 IV: 1000ml; Total: 1000ml. db Outcome: 17:13 Discharge ordered by MD. dwyer 18:01 Discharged to home ambulatory. db 18:01 Condition: stable 18:01 Discharge instructions given to patient, Instructed on discharge instructions, follow up and referral plans. Prescriptions given X 1. 18:03 Patient left the ED. db Signatures: Zenobia Pederson, GURDEEP RAGLANDP-Lluvia Sutton RN RN db
--- NOTE | 2022-10-22 17:13 | EDPHYS ---
Physician Documentation [facility] Name: Elliot Paige Age: 27 yrs Sex: Male : 1995 Arrival Date: 10/22/2022 Time: 15:57 Bed 13 Private MD: ED Physician Jose Urena HPI: 10/22 16:28 This 27 yrs old Male presents to ER via EMS with complaints of Heat Exposure, snw Nausea/Vomiting. 16:28 The patient presents to the emergency department with nausea, vomiting, abdominal pain, snw described as crampy. Onset: The symptoms/episode began/occurred acutely. Possible causes: heat exposure and then hot cheetos and alcohol intake. Associated signs and symptoms: Pertinent positives: nausea, vomiting. Severity of symptoms: At their worst the symptoms were moderate. The patient has experienced similar episodes in the past, multiple times. It is unknown whether or not the patient has recently seen a physician. hx of drug abuse. Historical: - Allergies: 16:06 No Known Allergies; db - PMHx: 16:06 Bipolar disorder; Cutter; drug abuse; Seizures; db - Immunization history:: Adult Immunizations unknown. - Social history:: Smoking status: Patient reports the use of cigarette tobacco products, smokes one-half pack cigarettes per day. ROS: 16:28 Eyes: Negative for injury, pain, redness, and discharge, ENT: Negative for injury, snw pain, and discharge, Neck: Negative for injury, pain, and swelling, Cardiovascular: Negative for chest pain, palpitations, and edema, Respiratory: Negative for shortness of breath, cough, wheezing, and pleuritic chest pain. 16:28 Back: Negative for injury and pain, : Negative for injury, bleeding, discharge, and swelling, MS/Extremity: Negative for injury and deformity, Skin: Negative for injury, rash, and discoloration, Neuro: Negative for headache, weakness, numbness, tingling, and seizure, Psych: Negative for depression, anxiety, suicide ideation, homicidal ideation, and hallucinations. 16:28 Constitutional: Positive for body aches, fatigue, malaise, weight loss. 16:28 Abdomen/GI: Positive for abdominal pain, nausea and vomiting. Exam: 16:29 Head/Face: Normocephalic, atraumatic. Eyes: Pupils equal round and reactive to light, snw extra-ocular motions intact. Lids and lashes normal. Conjunctiva and sclera are non-icteric and not injected. Cornea within normal limits. Periorbital areas with no swelling, redness, or edema. ENT: Nares patent. No nasal discharge, no septal abnormalities noted. Tympanic membranes are normal and external auditory canals are clear. Oropharynx with no redness, swelling, or masses, exudates, or evidence of obstruction, uvula midline. Mucous membranes moist. Neck: Trachea midline, no thyromegaly or masses palpated, and no cervical lymphadenopathy. Supple, full range of motion without nuchal rigidity, or vertebral point tenderness. No Meningismus. Chest/axilla: Normal chest wall appearance and motion. Nontender with no deformity. No lesions are appreciated. Cardiovascular: Regular rate and rhythm with a normal S1 and S2. No gallops, murmurs, or rubs. Normal PMI, no JVD. No pulse deficits. Respiratory: Lungs have equal breath sounds bilaterally, clear to auscultation and percussion. No rales, rhonchi or wheezes noted. No increased work of breathing, no retractions or nasal flaring. Back: No spinal tenderness. No costovertebral tenderness. Full range of motion. Skin: Warm, dry with normal turgor. Normal color with no rashes, no lesions, and no evidence of cellulitis. 16:29 MS/ Extremity: Pulses equal, no cyanosis. Neurovascular intact. Full, normal range of motion. Neuro: Awake and alert, GCS 15, oriented to person, place, time, and situation. Cranial nerves II-XII grossly intact. Motor strength 5/5 in all extremities. Sensory grossly intact. Cerebellar exam normal. Normal gait. Psych: Awake, alert, with orientation to person, place and time. Behavior, mood, and affect are within normal limits. 16:29 Constitutional: The patient appears alert, anxious, uncomfortable. 16:29 Abdomen/GI: Bowel sounds: normal, Palpation: soft, in all quadrants. Vital Signs: 15:54 BP 128 / 98; Pulse 82; Resp 16; Temp 98.4(O); Pulse Ox 98% ; Weight 74.84 kg; Height 6 db ft. 1 in. ; 16:30 BP 119 / 92; Pulse 64; Resp 16; Pulse Ox 100% ; db 17:45 BP 115 / 85; Pulse 65; Resp 16; Pulse Ox 99% on R/A; db 15:54 Body Mass Index 21.77 (74.84 kg, 185.42 cm) db MDM: 16:01 Patient medically screened. snw 17:13 Differential diagnosis: Nonspecific abd pain, gastritis, gastroenteritis, heat snw exhaustion. Data reviewed: vital signs, nurses notes, lab test result(s). I considered the following discharge prescriptions or medication management in the emergency department Medications were administered in the Emergency Department. See MAR. Counseling: I had a detailed discussion with the patient and/or guardian regarding the historical points, exam findings, and any diagnostic results supporting the discharge/admit diagnosis, lab results, the need for outpatient follow up, for definitive care, to return to the emergency department if symptoms worsen or persist or if there are any questions or concerns that arise at home. Response to treatment: the patient's symptoms have markedly improved after treatment. Special discussion: Based on the history and exam findings, there is no indication for further emergent testing or inpatient evaluation. I discussed with the patient/guardian the need to see the primary care provider for further evaluation of the symptoms. 10/22 16:03 Order name: CBC with Diff; Complete Time: 16:49 snw 10/22 16:03 Order name: CMP; Complete Time: 17:11 snw 10/22 16:03 Order name: Lipase; Complete Time: 17:11 snw 10/22 16:03 Order name: UDS snw 10/22 16:03 Order name: IV Saline Lock; Complete Time: 16:03 snw 10/22 16:03 Order name: Labs collected and sent; Complete Time: 16:03 snw 10/22 17:12 Order name: PO challenge: blood sugar borderline low; Complete Time: 18:00 snw Administered Medications: 16:10 Drug: Promethazine IVP 12.5 mg Route: IVP; Site: right antecubital; db 18:02 Follow up: Response: No adverse reaction db 16:12 Drug: Haloperidol IVP 2.5 mg/50 mL 2.5 mg Route: IVP; Site: right antecubital; db 18:02 Follow up: Response: No adverse reaction db 16:12 Drug: Famotidine IVP 20 mg Route: IVP; Site: right antecubital; db 18:02 Follow up: Response: No adverse reaction db 16:15 Drug: NS 0.9% IV 1000 ml Route: IV; Rate: 1 bolus; Site: right antecubital; db 18:02 Follow up: Response: No adverse reaction; IV Status: Completed infusion; IV Intake: db 1000ml 17:53 Drug: Ondansetron PO 4 mg Route: PO; db 18:02 Follow up: Response: No adverse reaction db Disposition: 10/23 07:45 Co-signature as Attending Physician, Jose Urena MD I reviewed the patient's care rt provided by the Advanced Practice Provider and agree with the diagnosis and treatment plan. Disposition Summary: 10/22/22 17:13 Discharge Ordered Location: Home snw Condition: Stable snw Diagnosis - Nausea with vomiting, unspecified snw - Heat fatigue, transient snw Followup: snw - With: Emergency Department - When: As needed - Reason: Worsening of condition Followup: snw - With: Private Physician - When: Tomorrow - Reason: Recheck today's complaints, Continuance of care, Re-evaluation by your physician Discharge Instructions: - Discharge Summary Sheet snw - Cyclic Vomiting Syndrome, Pediatric snw - Nausea and Vomiting, Adult snw - Heat Exhaustion snw - Preventing Heat Exhaustion, Adult snw Forms: - Work release form snw - Medication Reconciliation Form snw - Thank You Letter snw - Antibiotic Education snw - Prescription Opioid Use snw - Patient Portal Instructions snw - Leadership Thank You Letter snw Prescriptions: - Zofran 4 mg Oral Tablet - take 1 tablet by ORAL route every 12 hours As needed; 20 tablet; Refills: 0, snw Product Selection Permitted Signatures: Dispatcher [employer] Zenobia Calderon, [employer] QUALITY PERFORMANCE ANALYST-Csnw Lluvia Garcia, RN RN Jose Almonte MD MD rt
[2022-10-22] MEDS ORDERED: ONDANSETRON 4 MG (ODT) TAB ONE (18:06)
[2022-10-22 18:07] LABS: Barbiturates NEGATIVE (NEGATIVE); Benzodiazepines NEGATIVE (NEGATIVE); Cocaine NEGATIVE (NEGATIVE); METHAMPHETAM NEGATIVE (NEGATIVE); Methadone NEGATIVE (NEGATIVE); Opiates NEGATIVE (NEGATIVE); Phencyclidine NEGATIVE (NEGATIVE); THC Cannibis POSITIVE (NEGATIVE)
[2022-10-22 18:31] VITALS: BP 119/92; O2SAT 100
== END 2022-10-22 18:03 | disposition home or self-care (01) ==
LOC: ER 15:57
DX: T67.6XXA Heat fatigue, transient, initial encounter (principal); F17.210 Nicotine dependence, cigarettes, uncomplicated
CPT/HCPCS: 36415; 80053; 80307; 83690; 85025; 96361; 96374; 96375; 99284; J1630; J2550; J7030; Q0162

== ENCOUNTER 2022-11-17 02:12 | Emergency (ER) | payer SELFPAY ==
--- OUTSIDE RECORDS SUMMARY | 2022-11-17 02:15 | XMS REPORT | Continuity of Care Document ---
:[address] [facility] t Address [address] [facility] [place] [address] Care Team Providers Name Role Phone Pcp, Patient Does Not Have A Primary Care Physician [id number] LUIS CARLOS ESTRADA Attending Clinician Unavailable Luis Carlos Estrada MD Attending Clinician VENU CEDILLO Attending Clinician Unavailable Venu Berry Attending Clinician PELLETIER, DEEPAK S Attending Clinician Unavailable Deepak Devine Attending Clinician TRUDY GREENWOOD Attending Clinician Unavailable Marco Kaufman Attending Clinician MARCO GUERRERO Attending Clinician Unavailable VENU CEDILLO Admitting Clinician Unavailable SEAN LUIS CARLOS Jiménez Admitting Clinician Unavailable MARCO GUERRERO Admitting Clinician Unavailable Payers Payer Name Policy Type Policy Number Effective Date Expiration Date Jessy URBINA CROSS BLUE BL [id number] [facility] ([facility]) Problems Condition Condition Condition Status Onset Resolution Last Treating Co mments Source Name Details Category Date Date Treatment Clinician Date Suicidal Suicidal Disease Active Unive rs overdose, overdose, 2-25 ity of initial initial 00:00: [place] encounter encounter 00 [facility] Suicidal Suicidal Disease Active Unive rs overdose, overdose, 2-25 ity of initial initial 00:00: [place] encounter encounter 00 [facility] Cough Cough Disease Active [place] 03-22 Health 00:00: 00 Suicidal Suicidal Disease Active [facility] ideation ideation Health Allergies, Adverse Reactions, Alerts Allergy Allergy Status Severity Reaction(s) Onset Inactive Treating Comm ents Source Name Type Date Date Clinician NO KNOWN Drug Active Univers ALLERGIE Class ity of S [facility] Social History Social Habit Start Date Stop Date Quantity Comments Source History of tobacco Cigarette Smoker University of use [facility] Sexual orientation [facility] Gender identity [facility] g[facility] Exposure to 2022-05-26 2022-06-05 Not sure [facility] SARS-CoV-2 (event) 00:00:00 01:53:00 [facility] Tobacco use and 2022-06-05 2022-06-05 Smokeless Universit y of exposure 00:00:00 00:00:00 tobacco non-user [facility] History of Social 2022-03-27 2022-03-27 [facility] function 00:00:00 00:00:00 Alcohol intake 2020-10-01 2020-10-01 Current [place] [facility] 00:00:00 00:00:00 non-drinker of alcohol (finding) Sex Ass[birth year] At [birth year] [facility]th 00:00:00 00:00:00 Smoking Status Start Date Stop Date Source Never smoked tobacco [facility] Smokes tobacco daily 2022-06-05 00:00:00 Univers ity [facility] Current some day smoker 2019-06-27 00:00:00 Univ ersity [facility] Medications Ordered Filled Start Stop Current Ordering Indication Dosage Frequency Signature Comments Components Source Medication Medication Date Date Medication? Clinician (SIG) Name Name NaCl 0.9% 2022- No 1000mL at 999 Uni vers (NS) IV 10-23-25 mL/hr, ity of infusion 06:15: 06:30 [place]venou [place] 1,000 mL 00 :00 s, ONCE, 1 Medic al dose, On Branch 10/23/22 at 0115, Routine diphenhydrA 2022- No 12.5mg 12.5 mg, Univers MINE 10-23 Slow IV ity of (BENADRYL) 05:15: 05:12 Push, [place] injection 00 :00 ONCE, 1 Medical 12.5 mg dose, On Branch 10/23/22 at 0015, LIAM metoclopram 2022- No 10mg 10 mg, Uni vers jaclyn HCl 10-23 Slow IV ity of (REGLAN) 05:15: 05:12 Push, [place] injection 00 :00 ONCE, 1 Medical 10 mg dose, On Branch 10/23/22 at 0015, LIAM iopamidol 2022- No [id number] 100mL 100 mL, Univers (ISOVUE 10-23 Intravenou ity o f 370-500 mL) 05:00: 05:00 s, ONCE, 1 [place] injection 00 :00 dose, On Medica l 100 mL Fri Branch 10/23/22 at 0000, Routine NaCl 0.9% 2022- No 1000mL at 999 Uni vers (NS) bolus 10-23-25 mL/hr, ity of infusion 04:00: 04:14 1,000 mL, [place] 1,000 mL 00 :00 IV Medical Infusion, Branch ONCE, 1 dose, On [place] 10/22/22 at 2300, LIAM famotidine 2022- No 20mg 20 mg, Univ ers (PEPCID 10-23 Slow IV ity of (PF)) 03:15: 03:27 Push, [place] injection 00 :00 ONCE, 1 Medical 20 mg dose, On Branch [place] 10/22/22 at 2215, LIAM proMETHazin 2022- No 25mg 25 mg, IV Univers e 8- 08- Piggyback, ity of (PHENERGAN) 03:15: 03:27 ONCE, 1 [place] 25 mg in 00 :00 dose, On Medical NaCl 0.9% [place] Branch (NS) 50 mL 10/22/22 at IV 2215, LIAM piggyback proMETHazin 2022-0 Yes [id number] 25mg Take 1 Univers e 25 mg 8-25 tablet by ity of tablet 00:00: mouth [place] 00 every 8 Medical (eight) Branch hours as needed for Nausea and Vomiting (N/V). proMETHazin 2022-0 Yes [id number] 25mg Take 1 Univers e 25 mg 8-25 tablet by ity of tablet 00:00: mouth [place] 00 every 8 Medical (eight) Branch hours as needed for Nausea and Vomiting (N/V). famotidine 2022- Yes [id number] 40mg Take 1 Univers (PEPCID) 40 8- 09-10 tablet by it y of mg tablet 00:00: 04:59 mouth in [place] 00 :00 the Medical morning Branch for 15 days. famotidine 2022- Yes [id number] 40mg Take 1 Univers (PEPCID) 40 8-25 09-10 tablet by it y of mg tablet 00:00: 04:59 mouth in [place] 00 :00 the Medical morning Branch for 15 days. ibuprofen 0 Yes [id number] 800mg Take 1 Univers 800 mg 6-20 tablet by ity of tablet 00:00: mouth [place] 00 every 8 Medical (eight) Branch hours as needed for Pain (scale 4-6). cephALEXin 2022-0 Yes [id number] 500mg Take 1 Univers (KEFLEX) 6-20 capsule by ity o f 500 mg 00:00: mouth in [place] capsule 00 the Medical morning Branch and 1 capsule at noon and 1 capsule in the evening. ibuprofen 2022-0 Yes [id number] 800mg Take 1 Univers 800 mg 6-20 tablet by ity of tablet 00:00: mouth [place] 00 every 8 Medical (eight) Branch hours as needed for Pain (scale 4-6). cephALEXin 3-0 Yes [id number] 500mg Take 1 Univers (KEFLEX) 6-20 capsule by ity o f 500 mg 00:00: mouth in [place] capsule 00 the Medical morning Branch and 1 capsule at noon and 1 capsule in the evening. ibuprofen 3-0 Yes [id number] 800mg Take 1 Univers 800 mg 6-20 tablet by ity of tablet 00:00: mouth [place] 00 every 8 Medical (eight) Branch hours as needed for Pain (scale 4-6). cephALEXin 2023-0 Yes [id number] 500mg Take 1 Univers (KEFLEX) 6-20 capsule by ity o f 500 mg 00:00: mouth in [place] capsule 00 the morning Branch and 1 capsule at noon and 1 capsule in the evening. NaCl 0.9% 0 2022- No 1000mL at 999 Uni vers (NS) bolus 06-05-07 mL/hr, ity of infusion 08:30: 09:02 1,000 mL, [place] 1,000 mL 00 :00 IV Medical Infusion, Branch ONCE, 1 dose, On Wed06/05/22 at 0330, STAT ketorolac 0 2022- No 30mg 30 mg, Unive rs (TORADOL) 06-05- Slow IV ity of injection 08:30: 07:46 Push, [place] 30 mg 00 :00 ONCE, 1 Medical dose, On Branch Wed06/05/22 at 0330, LIAM metoclopram 0 2022- No 10mg 10 mg, Uni vers jaclyn HCl 06-05- Slow IV ity of (REGLAN) 07:30: 07:46 Push, [place] injection 00 :00 ONCE, 1 Medical 10 mg dose, On Branch Wed06/05/22 at 0230, LIAM cefTRIAXone Yes 250mg 250 mg, Un neda (ROCEPHIN) 06-26 Intramuscu ity of injection 14:30: lar, Q24H, [place] 250 mg 00 First dose Medical on Wed Branch 06/27/19 at 0930, Until Discontinu ed, LIAM
Re ason for Anti-Infec tive: Documented Infection< br>Documen grace Infection Site: Pelvic
Duration of Therapy: Other (see Comments) azithromyci No 1000mg 1,000 mg, Univers n 06-26 Oral, ity of (ZITHROMAX) 14:30: 13:48 ONCE, 1 [place] tablet 00 :00 dose, [facility] Medical 1,000 mg 06/27/19 at [facility] h 0930, LIAM
Re ason for Anti-Infec tive: Documented Infection< br>Documen grace Infection Site: Pelvic
Duration of Therapy: Other (see Comments) ibuprofen 2019- No 600mg 600 mg, Uni vers (IBU) 06-26 Oral, ity of tablet 600 13:45: 13:48 ONCE, 1 [place] mg 00 :00 dose, [facility] Medical 06/27/19 at Branch 0845, LIAM doxycycline Yes [id number] 100mg Take 1 Univers hyclate 100 06-26 capsule by it y of mg capsule 00:00: mouth 2 [place] 00 (two) Medical times Branch daily. ibuprofen Yes [id number] 800mg Take 1 Univers 800 mg 06-26 tablet by ity of tablet 00:00: mouth [place] 00 every 8 Medical (eight) Branch hours as needed for Pain (scale 4-6). doxycycline 2019-2022- No [id number] 100mg Take 1 Univers hyclate 100 06-26 capsule by i ty of mg capsule 00:00: 00:00 mouth 2 [place] 00 :00 (two) Medical times Branch daily. ibuprofen 2019-2022- No [id number] 800mg Take 1 Univers 800 mg 06-26 tablet by ity of tablet 00:00: 00:00 [...] Name Observation Time Observation Value Comments Source Systolic blood 2022-10-24 03:08:00 135 mm[Hg] Univer sity of [facility] Diastolic blood 2022-10-24 03:08:00 95 mm[facility]Hg[facility] Heart rate 2022-10-24 03:08:00 79 /min Universi ty [facility] Body temperature 2022-10-24 03:08:00 36.89 [facility] 2022-10-24 03:08:00 18 /min Univ ersity [facility] Body height 2022-10-24 03:08:00 185.4 cm Universi ty [facility] Body weight 2022-10-24 03:08:00 72.576 kg Universi ty [facility] BMI 2022-10-24 03:08:00 21.11 kg/m2 Universi ty [facility] Oxygen saturation in 2022-10-24 03:08:00 100 /min University of Arterial blood by [facility] Pulse oximetry Branch Systolic blood 2022-10-23 07:07:00 122 mm[Hg] Univer sity of [facility] Diastolic blood 2022-10-23 07:07:00 72 mm[Hg] Unive rsity of [facility] Heart rate 2022-10-23 07:07:00 71 /min Universi ty [facility] Body temperature 2022-10-23 07:07:00 36.78 [facility]ata [facility] rate 2022-10-23 07:07:00 16 /min Univ ersity [facility] Oxygen saturation in 2022-10-23 07:07:00 100 /min University of Arterial blood by [place] [facility] Pulse oximetry Branch Body height 2022-10-23 02:32:00 185.4 cm Universi ty [facility] [place] [facility] Body weight 2022-10-23 02:32:00 72.576 kg Universi ty [facility] [place] [facility] BMI 2022-10-23 02:32:00 21.11 kg/m2 Universi ty [facility] Systolic blood 2022-08-18 09:00:00 109 mm[Hg] Univer sity of pressure [place] [facility] Diastolic blood 2022-08-18 09:00:00 77 mm[Hg] Unive rsity of pressure [place] [facility] Heart rate 2022-08-18 09:00:00 71 /min Universi ty [facility] [place] [facility] Oxygen saturation in 2022-08-18 09:00:00 98 /min University of Arterial blood by [facility] Pulse oximetry Branch Body temperature 2022-08-18 06:08:00 37.28 Fatoumata Univ ersity [facility] [place] [facility] Respiratory rate 2022-08-18 06:08:00 18 /min Univ ersity [facility] [place] [facility] Body height 2022-08-18 06:08:00 185.4 cm Universi ty [facility] [place] [facility] Body weight 2022-08-18 06:08:00 72.576 kg Universi ty [facility] [place] [facility] BMI 2022-08-18 06:08:00 21.11 kg/m2 Universi ty [facility] [place] [facility] Systolic blood 2022-06-05 06:53:00 132 mm[Hg] Univer sity of pressure [place] [facility] Diastolic blood 2022-06-05 06:53:00 88 mm[Hg] Unive rsity of pressure [place] [facility] Heart rate 2022-06-05 06:53:00 60 /min Universi ty [facility] [place] [facility] Body temperature 2022-06-05 06:53:00 36.5 Fatoumata Univ ersity [facility] [place] [facility] Respiratory rate 2022-06-05 06:53:00 14 /min Univ ersity [facility] [place] [facility] Body height 2022-06-05 06:53:00 185.4 cm Universi ty [facility] [place] [facility] Body weight 2022-06-05 06:53:00 76.431 kg Universi ty [facility] [place] [facility] BMI 2022-06-05 06:53:00 22.23 kg/m2 Universi ty [facility] [place] [facility] Oxygen saturation in 2022-06-05 06:53:00 100 /min University of Arterial blood by [facility] Pulse oximetry Branch Systolic blood 2019-06-27 14:00:00 115 mm[Hg] Univer sity of pressure [place] [facility] Diastolic blood 2019-06-27 14:00:00 80 mm[Hg] Unive rsity of pressure [place] [facility] Heart rate 2019-06-27 14:00:00 78 /min Universi ty [facility] [place] [facility] [place] Respiratory rate 2019-06-27 14:00:00 18 /min [facility] ersity of [facility] Oxygen saturation in 2019-06-27 14:00:00 98 /min University of Arterial blood by [facility] Pulse oximetry Branch Body temperature 2019-06-27 12:27:00 36.28 Fatoumata [facility] ersity of [facility] Body height 2019-06-27 12:27:00 185.4 cm Universi ty of [facility] Body weight 2019-06-27 12:27:00 74.844 kg Universi ty of [facility] BMI 2019-06-27 12:27:00 21.77 kg/m2 Universi ty of [facility] Systolic blood 2019-06-27 14:00:00 115 mm[Hg] Univer sity of pressure [facility] Diastolic blood 2019-06-27 14:00:00 80 mm[Hg] Unive rsity of pressure [facility] Heart rate 2019-06-27 14:00:00 78 /min Universi ty of [facility] Respiratory rate 2019-06-27 14:00:00 18 /min [facility] Oxygen saturation in 2019-06-27 14:00:00 98 /min University of Arterial blood by [facility] Pulse oximetry Branch Body temperature 2019-06-27 12:27:00 36.28 Fatoumata [facility] ersity of [facility] Body height 2019-06-27 12:27:00 185.4 cm Universi ty [facility] [place] [facility] [place] Body weight 2019-06-27 12:27:00 74.844 kg Universi ty of [facility] BMI 2019-06-27 12:27:00 21.77 kg[facility] Procedures Procedure Date / Time Performing Clinician Source Performed URINE DRUG (IMMUNOASSAY) 2022-10-23 07:04:00 Venu Cedillo [facility] n[place] SCREEN CT ABDOMEN PELVIS W 2022-10-23 04:06:08 Venu Cedillo [facility] CREATINE KINASE 2022-10-23 03:15:00 Venu Cedillo [facility] LIPASE 2022-10-23 03:15:00 Venu Cedillo [facility] COMP. METABOLIC PANEL 2022-10-23 03:15:00 Venu Cedillo [facility] ([id number]) Medical Branch CBC WITH DIFF 2022-10-23 03:15:00 Venu Cedillo [facility] URINALYSIS 2022-10-23 03:15:00 Mamadou [facility] ASSIGNMENT OF BENEFITS 2022-10-23 02:43:01 Doctor Unassigned, No General acute hospital NOTICE OF PRIVACY 2022-10-23 02:41:18 Doctor Unassigned, No [facility] CONSENT/REFUSAL FOR 2022-10-23 02:40:39 Doctor Unassigned, No Un iversity of [place] DIAGNOSIS AND TREATMENT [facility] Medical Branch [place] SIMPLE REPAIR 2022-08-18 09:10:00 Luis Carlos Estrada [facility] SCALP/NECK/AX/GENIT/TRUN Medical Branch K 2.5CM/< NOTICE OF PRIVACY 2022-06-05 06:39:59 Doctor Unassigned, No [facility] [place] CONSENT/REFUSAL FOR 2022-06-05 06:37:55 Doctor Unassigned, No Un iversity of [place] DIAGNOSIS AND TREATMENT [facility] Medical [place] US TESTICULAR TORSION 2019-06-27 13:28:34 Marco Guerrero [facility] URINALYSIS 2019-06-27 12:36:00 Marco Guerrero [facility] Plan of Care Planned Activity Planned Date Details Comments Source Future Scheduled Test 2022-11-29 00:00:00 IMM Influenza [facility] Seasonal (>/= 19 yrs) [code = IMM Influenza Seasonal (>/= 19 yrs)] Future Scheduled Test 2022-11-29 00:00:00 IMM Influenza [facility] Seasonal (>/= 19 yrs) [code = IMM Influenza Seasonal (>/= 19 yrs)] Future Scheduled Test 2021-11-29 00:00:00 IMM Influenza [facility] Seasonal (>/= 19 yrs) [code = IMM Influenza Seasonal (>/= 19 yrs)] Future Scheduled Test 1996-02-24 00:00:00 COVID-19 Vaccine (#1) [facility] [code = COVID-19 Vaccine (#1)] Future Scheduled Test 1996-02-24 00:00:00 COVID-19 Vaccine (#1) [facility] [code = COVID-19 Vaccine (#1)] Future Scheduled Test 1996-02-24 00:00:00 COVID-19 Vaccine (#1) [facility] [code = COVID-19 Vaccine (#1)] Encounters Start End Encounter Admission Attending Care Care Encounter Source Date/Time Date/Time Type Type Clinicians Facility Department ID 2021-05-30 Outpatient [facility] [id number] [place] 13:23:37 [id number] [facility] 2021-05-28 Outpatient [facility] [id number] [place] 12:10:13 [id number] [facility] 2022-10-23 2022-10-24 Emergency X [facility] ERT [id number] Univers 22:10[facility]00 [facility]03[facility] 2022-10-24 Emergency [facility] [id number] Univers 22:10:00 [facility]:03:[facility] [id number] ity [facility] [id number] [facility] [id number] [address] 2022-10-22 2022-10-23 Emergency X [facility] ERT [id number] Univers 21:35:00 02:34[facility]-10-22 2022-10-23 Emergency [facility] [id number] Univers 21:35:00 02:34:00 [facility] [id number] i ty [facility] [id number] [facility] [id number] [address] 2022-08-18 2022-08-18 Emergency X [facility] ERT [id number] Univers 01:07:00 04:22:00 [facility] 2022-08-18 2022-08-18 Emergency [facility] [id number] Univers 01:07:00 04:22:00 Wakili S [place] [id number] ity [facility] [id number] [facility] [id number] [address] 2022-06-05 2022-06-05 Emergency X [facility] ERT [id number] Univers 01:56:00 04:05:00 DEEPAK ity [facility] 2022-06-05 2022-06-05 Emergency [facility] [id number] Univers 01:56:00 04:05:00 Deepak S [place] [id number] i ty of [place] 4.2.7.2.686 [facility] [id number] [address] 2021-02-12 2021-02-12 Emergency [facility] [id number] 159 [place] 14:44:00 14:45:00 TRUDY James 2019-06-27 2019-06-27 Emergency [facility] [id number] 07:34:53 12:25:00 Marco R [place] [id number] [place] [id number] [place] [id number] [facility] 2019-06-27 2019-06-27 Emergency [facility] [id number] Univers 07:34:53 12:25:00 Marco R [place] [id number] i ty of [place] 4.2.7.2.686 [facility] [id number] [address] 2019-06-27 2019-06-27 Emergency X [facility] ERT [id number] Univers 07:34:53 12:25:00 MARCO ity [facility] Results Test Test Test Results Result Source Description Time Comments Comments US TESTICULAR 2019-05- HISTORY: ?Left Univers ity of TORSION 28 testicular swelling. [facility] 13:31:22 TECHNIQUE: Entire Branch scrotum is [...] testis and left epididymis. CONCLUSIONS: Left epididymoorchitis. [facility], Radiant Results Inft User - 06/27/2019 8:32 [...] APPEARANCE (test code = Hazy Clear A 6913528129) COLOR (test code = 4529692618) Yellow Yellow PH (test code = 2458681075) 4.8-8.0 SP GRAVITY (test code = 1.003-1.030 9791439447) GLU U QUAL (test code = Normal Normal 3053665375) BLOOD (test code = 9598473226) 1+ Negative A KETONES (test code = 8596063332) Negative Negative PROTEIN (test code = 2887-8) Negative Negative UROBILIN (test code = 2.0 mg/dL Normal A 3586336014) BILIRUBIN (test code = Negative Negative 8972572588) NITRITE (test code = 6062399980) Negative Negative LEUK ELLA (test code = 250/uL Negative A 2431569025) RBC/HPF (test code = 7179772727) See_Comment H [Automated message] The system which Swivel nerated this result transmit grace reference range: 0 - 3 HP F. The reference range was not used to interpret th is result as normal/abnormal . WBC/HPF (test code = 0150588075) >182 See_Comment H [Automated message] The system which Swivel nerated this result transmit grace reference range: 0 - 5 HP F. The reference range was not used to interpret th is result as normal/abnormal . BACTERIA (test code = Negative Negative 2606100367) MUCOUS (test code = 8821120227) Moderate Negative LPF A SQ EPITH (test code = <1 HPF 4211102466) Lab Interpretation (test code = Abnormal 82591-6) [facility] Notes Date/Time Note Provider Source 2022-10-23 Formatting of this note might be differe nt from the original. Valeria Zarco RN [facility] 22:09:02-00:00 Per EMS patient states he is throwing up blood which ems stated he is not throwing up blood. His throat is just raw from throwing up. Electronically signed by Valeria Zarco RN a t 10/23/2022 10:09 PM CDT 2022-10-23 Formatting of this note might be differe nt from the original. Ismael Tamayo RN [facility] 22:07:25-00:00 Pt CO of abdominal pain and vomiting since last night, pt was seen in the ED last night. Pt was prescribed Zofran for vomiting and states it did not help him. 2022-10-23 [facility] 22:06:00-00:00 Called for pt from the lobby without a response X 3 Pt therefore not seen or evaluated by me during this visit MD Sean Rich [place] S, MD 10/24/22 0219 2022-10-23 Formatting of this note might be differe nt from the original. Merissa Brady RN [facility] 02:14:43-00:00 Prescriptions provided Pt verbalized understanding of instructions, pt awake alert oriented, resp reg unlabored, skin w/d, color appropriate for race, moves all ext well,pt encouraged to follow up with pcp. Advised to seek medical attention for new/prolon ged/worsening of symptoms. No adverse reaction to meds given in ER noted up on discharge. PIV d'cd, dressing to site, catheter in tact. Awake, alert oriented, resp reg unlabored, skin w/d, pt leaving amb with steady gait, in no apparent distress. 2022-10-23 [facility] 00:36:49-00:00 Pt report given Merissa Azul 2022-10-22 Formatting of this note might be differe nt from the original. Ismael Tamayo RN [facility] 21:29:55-00:00 Pt was brought in by ems CO of N/V. Ems reported the patient never vomited with them, ems gave 4mg Zofran and 300 mL NS. Patient was seen a [facility] ED for heat exhaustion earlier today. T
[2022-11-17] MEDS ORDERED: METOCLOPRAMIDE 10 MG/2mL INJ ONE (02:40)
[2022-11-17] MEDS ORDERED: DIPHENHYDRAMINE 50 MG/ML VIAL ONE (02:40)
[2022-11-17] MEDS ORDERED: NA CHLORIDE 0.9% 1,000 ML ONE (02:41)
[2022-11-17] MEDS ORDERED: KETOROLAC 30 MG/ML INJ ONE (02:41)
--- NOTE | 2022-11-17 04:27 | ER ---
Nurse's Notes [facility] Name: Elliot Paige Age: 27 yrs Sex: Male : 1995 Arrival Date: 11/17/2022 Time: 02:12 Bed 5 Private MD: Diagnosis: Episodic tension-type headache Presentation: 11/17 04:04 Chief complaint: see Downtime paperwork. as6 Historical: - Allergies: 04:04 No Known Allergies; as6 - PMHx: 04:04 Bipolar disorder; Cutter; drug abuse; Seizures; as6 - Family history:: not pertinent. Screenin:03 [facility] ED Fall Risk Assessment (Adult) History of falling in the last 3 months, as6 including since admission No falls in past 3 months (0 pts) Confusion or Disorientation No (0 pts) Intoxicated or Sedated No (0 pts) Impaired Gait No (0 pts) Mobility Assist Device Used No (0 pt) Altered Elimination No (0 pt) Score/Fall Risk Level 0 - 2 = Low Risk. Abuse screen: Denies threats or abuse. Nutritional screening: No deficits noted. Tuberculosis screening: No symptoms or risk factors identified. Assessment: 04:03 Reassessment: Patient appears in no apparent distress at this time. Patient states as6 feeling better. Patient states symptoms have improved. 04:41 General: Appears in no apparent distress. Behavior is calm, cooperative. Pain: Denies as6 pain. Neuro: No deficits noted. Vital Signs: 04:03 BP 107 / 60; Pulse 74; Pulse Ox 100% on R/A; as6 04:40 BP 104 / 52; Pulse 63; Resp 18; Pulse Ox 99% on R/A; Pain 0/10; as6 04:40 Pain Scale: Adult as6 ED Course: 02:39 Patient arrived in ED. mr 04:03 Resting quietly. Appears to be sleeping. as6 04:03 Patient has correct armband on for positive identification. as6 04:03 No provider procedures requiring assistance completed. as6 04:22 Mehdi Miller MD is Attending Physician. sp4 04:41 IV discontinued, intact, bleeding controlled, No redness/swelling at site. Pressure as6 dressing applied. Administered Medications: No medications were administered Outcome: : Discharge ordered by . sp4 04:41 Discharged to home ambulatory, as6 04:41 Condition: stable 04:41 Discharge instructions given to patient, Instructed on discharge instructions, follow up and referral plans. Demonstrated understanding of instructions, follow-up care, 04:42 Patient left the ED. as6 Signatures: Porsha Vega, Sarabjit Whipple SivakumarlucyShiv, RN RN as6 Mehdi Miller MD MD sp4
--- NOTE | 2022-11-17 04:27 | EDPHYS ---
Physician Documentation [facility] Name: Elliot Paige Age: 27 yrs Sex: Male : 1995 Arrival Date: 11/17/2022 Time: 02:12 Bed 5 Private MD: ED Physician Mehdi Miller HPI: 11/17 04:22 This 27 yrs old Male presents to ER via Unassigned with complaints of Blurred sp4 Vision. 04:22 27-year-old male with history of bipolar disorder, drug abuse and seizure presents with sp4 a cute onset headache, patient reported headache started several hours ago and it is behind his eyes. Headache is moderate to severe 9-10 on a scale. Denied any neurologic deficits such as seizures, . Historical: - Allergies: 04:04 No Known Allergies; as6 - PMHx: 04:04 Bipolar disorder; Cutter; drug abuse; Seizures; as6 - Family history:: not pertinent. ROS: 04:22 Constitutional: Negative for fever, chills, and weight loss, Neuro: Negative for sp4 weakness, numbness, tingling, and seizure, positive for headache 04:22 All other systems are negative, Exam: 04:22 Constitutional: This is a well developed, well nourished patient who is awake, alert, sp4 and in no acute distress. Head/Face: Normocephalic, atraumatic. Eyes: Pupils equal round and reactive to light, extra-ocular motions intact. Lids and lashes normal. Conjunctiva and sclera are not injected. Cornea within normal limits. Periorbital areas with no swelling, redness, or edema. ENT: Nares patent. No nasal discharge, no septal abnormalities noted. Tympanic membranes are normal and external auditory canals are clear. Oropharynx with no redness, swelling, or masses, exudates, or evidence of obstruction, uvula midline. Mucous membranes moist. Neck: Trachea midline, no thyromegaly or masses palpated, and no cervical lymphadenopathy. Supple, full range of motion without nuchal rigidity, or vertebral point tenderness. Chest/axilla: Normal chest wall appearance and motion. Nontender with no deformity. No lesions are appreciated. Cardiovascular: Regular rate and rhythm with a normal S1 and S2. No gallops, murmurs, or rubs. Normal PMI, no JVD. No pulse deficits. Respiratory: Lungs have equal breath sounds bilaterally, clear to auscultation and percussion. No rales, rhonchi or wheezes noted. No increased work of breathing, no retractions or nasal flaring. Abdomen/GI: Soft, non-tender, with normal bowel sounds. No distension or tympany. No guarding or rebound. No evidence of tenderness throughout. Back: No spinal tenderness. No costovertebral tenderness. Skin: Warm, dry with normal turgor. Normal color with no rashes, no lesions, and no evidence of cellulitis. MS/ Extremity: Pulses equal, no cyanosis. Neurovascular intact. Full, normal range of motion. Neuro: Awake and alert, GCS 15, oriented to person, place, time, and situation. Cranial nerves II-XII grossly intact. Motor strength 5/5 in all extremities. Sensory grossly intact. Psych: Awake, alert, with orientation to person, place and time. Behavior, mood, and affect are within normal limits Vital Signs: 04:03 BP 107 / 60; Pulse 74; Pulse Ox 100% on R/A; as6 04:40 BP 104 / 52; Pulse 63; Resp 18; Pulse Ox 99% on R/A; Pain 0/10; as6 04:40 Pain Scale: Adult as6 MDM: 04:22 Differential Diagnosis altered mental status, sepsis, flu. Data reviewed: vital signs, sp4 nurses notes, EMS record, old medical records. Consideration of Admission/Observation Escalation of care including admission/observation considered. ED course: Patient headache has resolved. 04:25 Patient medically screened. sp4 Administered Medications: No medications were administered Disposition Summary: 11/17/22 04:26 Discharge Ordered Notes: Location: Home sp4 Problem: new sp4 Symptoms: have improved sp4 Condition: Stable sp4 Diagnosis - Episodic tension-type headache sp4 Followup: sp4 - With: Private Physician - When: 7 - 10 days - Reason: Recheck today's complaints Discharge Instructions: - Discharge Summary Sheet sp4 - General Headache Without Cause sp4 Forms: - Patient Portal Instructions sp4 Prescriptions: - Fioricet 50-300-40 mg Oral capsule - take 1 capsule ORAL route every 6 hours PRN for headache; 30 capsule; Refills: sp4 0, Product Selection Permitted Signatures: Shiv Santiago RN RN as6 Mehdi Miller MD MD sp4
[2022-11-17 04:50] VITALS: BP 104/52; O2SAT 99
== END 2022-11-17 04:42 | disposition home or self-care (01) ==
LOC: ER 02:12
DX: G44.219 Episodic tension-type headache, not intractable (principal)
CPT/HCPCS: J1200; J2765; J7030

== ENCOUNTER → 2023-05-12 | Emergency (ER) | payer SELFPAY ==
[~2023-05-12] MED LIST: LORAZEPAM 1 MG TABLET ONE; LORazepam 2 MG/ML VIAL ONE
[2023-05-12 11:50] LABS: Hematocrit 41.6 % (39.6-49.0); Hemoglobin 13.7 g/dL (13.6-17.9); MCH 31.4 pg (27.0-35.0); MCV 95.2 fL (80-100); RBC Red Blood Cell Count 4.37 M/uL (4.33-5.43)
[2023-05-12 11:51] LABS: Absolute Eosinophils 0.1 K/uL (0-0.5); Absolute Lymphocytes (CBC) 1.7 K/uL (0.7-4.9); Absolute Monocytes 0.4 K/uL (0.1-1.3); Absolute Neutrophil 3.8 K/uL (1.8-8.0); Basophils % 0.6 % (0-1.3); Eosinophils % 0.9 % (0-4.4); Lymphocytes % 28.4 % (15.3-44.8); MPV 7.9 fL (7.6-11.3); Monocytes % 6.5 % (3.3-12.3); Neutrophils % 63.6 % (41.7-73.7); Platelets 232 thou/uL (152-406); Red Cell Distribution Width 12.8 % (12.1-15.2)
[2023-05-12 11:57] LABS: PT Prothrombin Time 10.6 SECONDS (9.5-12.5); PTT, Activated Partial Thromb 27.1 SECONDS (24.3-36.9); Protime INR 0.96
[2023-05-12 12:22] LABS: ALT/SGPT 23 U/L (16-61); AST/SGOT 19 U/L (15-37); Albumin 3.5 g/dL (3.4-5.0); Albumin/Globulin Ratio 1.1 (1.1-1.8); Alkaline Phosphatase 68 U/L (45-117); Anion Gap 6.2 mEq/L (5.0-15.0); BUN Blood Urea Nitrogen 10 mg/dL (7-18); Bicarbonate 29 mEq/L (21-32); Bilirubin Direct 0.1 mg/dL (0-0.2); Bilirubin Indirect, Calculated 0.2 mg/dL (0.2-0.8); Bilirubin Total 0.3 mg/dL (0.2-1.0); Creatine Phosphokinase 124 U/L (39-308); Globulin 3.2 g/dL (2.3-3.5); Glomerular Filtration Rate 106 ml/min (=/>90); Glucose Level 99 mg/dL (74-106); Potassium 5.2 mEq/L (3.5-5.1); Protein, Total 6.7 g/dL (6.4-8.2); Sodium Level 139 mEq/L (136-145)
[2023-05-12 12:29] LABS: Specific Gravity 1.008 (1.005-1.030); Urine Bacteria None Seen /HPF (<20); Urine Bilirubin NEGATIVE (Negative); Urine Blood Negative (Negative); Urine Clarity Clear (Clear); Urine Color Colorless (Yellow); Urine Glucose NEGATIVE (Negative); Urine Mucus Slight /HPF (None Seen); Urine Protein NEGATIVE (Negative); Urine RBC <5 /HPF (None Seen); Urine Urobilinogen Normal (Normal)
[2023-05-12 12:43] LABS: Barbiturates NEGATIVE (NEGATIVE); Benzodiazepines NEGATIVE (NEGATIVE); Cocaine NEGATIVE (NEGATIVE); METHAMPHETAM NEGATIVE (NEGATIVE); Methadone NEGATIVE (NEGATIVE); Opiates NEGATIVE (NEGATIVE); Phencyclidine POSITIVE (NEGATIVE); THC Cannibis NEGATIVE (NEGATIVE)
--- NOTE | 2023-05-12 13:52 | ER ---
Nurse's Notes [facility] Name: Elliot Paige Age: 27 yrs Sex: Male : 1995 Arrival Date: 05/12/2023 Time: 11:28 Bed 4 Private MD: Diagnosis: Phencyclidine abuse Presentation: 05/11 11:29 Chief complaint: EMS states: pt was found in the [place] the [place] [address] apartments by other residents reports that "he isn't acting right." pt states "I have no idea what is going on right now". [place] [employer] at bedside. Coronavirus screen: At this time, the client does not indicate any symptoms associated with coronavirus-19. Ebola Screen: No symptoms or risks identified at this time. Initial Sepsis Screen: Does the patient meet any 2 criteria? Altered Mental Status. Does the patient have a suspected source of infection? No. Patient's initial sepsis screen is negative. Risk Assessment: Do you want to hurt yourself or someone else? Patient reports no desire to harm self or others. Onset of symptoms was May 12, 2023. 11:29 Method Of Arrival: EMS: [facility] 11:29 Acuity: MEGA 2 [facility] 11:32 Care prior to arrival: Medication(s) given: 1mg IV Ativan. [facility] Triage Assessment: 11:31 General: Appears in no apparent distress. comfortable, unkempt, well developed, [facility] Behavior is calm, cooperative, appropriate for age. Pain: Denies pain. EENT: No signs and/or symptoms were reported regarding the EENT system. Neuro: Level of Consciousness is awake, alert, obeys commands, Oriented to person, place, time, situation, Appropriate for age. Cardiovascular: Heart tones S1 S2 present Capillary refill < 3 seconds. Respiratory: Airway is patent Trachea midline Respiratory effort is even, unlabored, Respiratory pattern is regular, symmetrical. GI: No signs and/or symptoms were reported involving the gastrointestinal system. : No signs and/or symptoms were reported regarding the genitourinary system. Derm: No signs and/or symptoms reported regarding the dermatologic system. Skin is intact, is healthy with good turgor, Skin is pink, warm \\T\\ dry. Musculoskeletal: No signs and/or symptoms reported regarding the musculoskeletal system. Circulation, motion, and sensation intact. Capillary refill < 3 seconds, Range of motion: intact in all extremities. Historical: - Allergies: 11:31 No Known Allergies; kc6 - PMHx: 11:31 Bipolar disorder; Cutter; drug abuse; Seizures; kc6 - PSHx: 11:31 Unable to Obtain; kc6 - Immunization history:: Adult Immunizations unknown. - Social history:: Smoking status: Patient reports the use of cigarette tobacco products, smokes one pack cigarettes per day. Screenin:32 [facility] ED Fall Risk Assessment (Adult) History of falling in the last 3 months, kc6 including since admission No falls in past 3 months (0 pts) Confusion or Disorientation Yes (5 pts) Intoxicated or Sedated No (0 pts) Impaired Gait No (0 pts) Mobility Assist Device Used No (0 pt) Altered Elimination No (0 pt) Score/Fall Risk Level 3 or more points = High Risk. Abuse screen: Denies threats or abuse. Denies injuries from another. Nutritional screening: No deficits noted. Tuberculosis screening: No symptoms or risk factors identified. Assessment: 11:32 Reassessment: please see triage. [facility] 11:51 Reassessment: PT DENIES SI OR HI AT THIS TIME. [facility] 12:10 Reassessment: pt is awake, standing up at the bedside stating "I don't know where I'm [facility] at, I'm so disoriented. I have no idea what's going on right now." pt reoriented and placed back in bed with RYAN Hager at bedside. Dr. Urena notified. 12:32 Reassessment: Patient appears in no apparent distress at this time. No changes from [facility] previously documented assessment. Patient and/or family updated on plan of care and expected duration. Pain level reassessed. Patient is alert, oriented x 3, equal unlabored respirations, skin warm/dry/pink. 12:42 Reassessment: pts brother at bedside. brother states "its embalming fluid that did kc this, he smoked it about an hour and a half ago. sometimes he does meth and smokes synthetic marijuana as well." Dr. Urena notified. 13:24 Reassessment: pt has eyes closed, respirations even and unlabored. brother remains at [facility] bedside. Overdose: 11:51 [place] Suicide Severity Screening: "In the past month, have you wished you were kc6 or wished you could go to sleep and not wake up?" Patient responds "no." "In the past month, have you actually had any thoughts of killing yourself?" Patient responds "no." "In your lifetime, have you ever done anything, started to do anything, or prepared to do anything to end your life?" Patient responds "no.". 11:52 [place] Suicide Severity Screening: "In the past month, have you wished you were kc6 or wished you could go to sleep and not wake up?" Patient responds "no." "In the past month, have you actually had any thoughts of killing yourself?" Patient responds "no.". Vital Signs: 11:29 BP 137 / 107; Pulse 83; Resp 16 S; Pulse Ox 100% on R/A; Weight 74.84 kg (M); Height 6 kc6 ft. 2 in. (R); 11:51 BP 145 / 95; Pulse 68; Resp 16 S; Pulse Ox 100% on R/A; kc6 12:48 BP 145 / 65; Pulse 84; Resp 16 S; Pulse Ox 98% on R/A; kc6 13:25 BP 138 / 91; Pulse 63; Resp 16 S; Pulse Ox 100% on R/A; kc6 11:29 Body Mass Index 21.18 (74.84 kg, 187.96 cm) 6 ED Course: 11:29 Patient arrived in ED. kc6 11:31 Triage completed. kc6 11:31 Arm band placed on. kc6 11:32 Maintain EMS IV. Dressing intact. Good blood return noted. Site clean \\T\\ dry. Gauge \\T\\ elvia 6 site: 20G RAC. Patient maintains SpO2 saturation greater than 95% on room air. 11:33 Patient has correct armband on for positive identification. Placed in gown. Bed in low kc6 position. Call light in reach. Side rails up X2. Client placed on continuous cardiac and pulse oximetry monitoring. NIBP monitoring applied. pacu rn on. 11:34 Jose Urena MD is Attending Physician. rt 11:51 Cele Cantor RN is Primary Nurse. [facility] Administered Medications: 12:29 Drug: LORazepam PO 1 mg PO once Route: PO; kc6 13:25 Follow up: Response: No adverse reaction; Anxiety decreased; RASS: Drowsy (-1) kc6 12:29 Drug: Ativan IVP 1 mg IVP once Route: IVP; Site: right antecubital; kc6 13:25 Follow up: Response: No adverse reaction; Anxiety decreased; RASS: Drowsy (-1) kc6 Outcome: 13:51 Discharge ordered by MD. rt 14:26 Discharged to home ambulatory, with family, ap3 14:26 Condition: good 14:26 Discharge instructions given to patient, Instructed on discharge instructions, follow up and referral plans. Demonstrated understanding of instructions, follow-up care, 14:28 Patient left the ED. iw Signatures: Alley Brady RN Merissa Bernal RN RN ap3 Cele Cantor RN RN kc6 Jose Urena MD MD rt
--- NOTE | 2023-05-12 13:52 | EDPHYS ---
Physician Documentation [facility] Name: Elliot Paige Age: 27 yrs Sex: Male : 1995 Arrival Date: 05/12/2023 Time: 11:28 Bed 4 Private MD: ED Physician Jose Urena HPI: 05/11 13:54 This 27 yrs old Male presents to ER via EMS with complaints of Possible Overdose, rt Altered Mental Status. 13:54 Patient presents to the ED with reported altered mental status. Reportedly smoking rt something that was dipped and vomiting fluid prior to arrival. He was noted be hypertensive, tachycardic by EMS. 1 mg of Ativan was given. Denies other acute complaints at this time, symptoms are moderate in severity, no other aggravating or alleviating factors.. Historical: - Allergies: : No Known Allergies; kc6 - PMHx: : Bipolar disorder; Cutter; drug abuse; Seizures; kc6 - PSHx: : Unable to Obtain; kc6 - Immunization history:: Adult Immunizations unknown. - Social history:: Smoking status: Patient reports the use of cigarette tobacco products, smokes one pack cigarettes per day. ROS: 13:54 Constitutional: Negative for fever, chills, and weight loss, Cardiovascular: Negative rt for chest pain, palpitations, and edema, Respiratory: Negative for shortness of breath, cough, wheezing, and pleuritic chest pain, Abdomen/GI: Negative for abdominal pain, nausea, vomiting, diarrhea, and constipation, Skin: Negative for injury, rash, and discoloration, Psych: Negative for depression, anxiety, suicide ideation, homicidal ideation, and hallucinations, 13:54 Neuro: Positive for altered mental status, Exam: 13:54 Constitutional: This is a well developed, well nourished patient who is awake, alert, rt and in no acute distress. Head/Face: Normocephalic, atraumatic. Chest/axilla: Normal chest wall appearance and motion. Nontender with no deformity. No lesions are appreciated. Cardiovascular: Regular rate and rhythm with a normal S1 and S2. No gallops, murmurs, or rubs. Normal PMI, no JVD. No pulse deficits. Respiratory: Lungs have equal breath sounds bilaterally, clear to auscultation and percussion. No rales, rhonchi or wheezes noted. No increased work of breathing, no retractions or nasal flaring. Abdomen/GI: Soft, non-tender, with normal bowel sounds. No distension or tympany. No guarding or rebound. No evidence of tenderness throughout. Skin: Warm, dry with normal turgor. Normal color with no rashes, no lesions, and no evidence of cellulitis. MS/ Extremity: Pulses equal, no cyanosis. Neurovascular intact. Full, normal range of motion. Neuro: Awake and alert, GCS 15, oriented to person, place, time, and situation. Cranial nerves II-XII grossly intact. Motor strength 5/5 in all extremities. Sensory grossly intact. Cerebellar exam normal. Normal gait. Psych: Awake, alert, with orientation to person, place and time. Behavior, mood, and affect are within normal limits. 13:54 Eyes: Nystagmus noted. 13:54 ECG was reviewed by the Attending Physician. Vital Signs: 11:29 BP 137 / 107; Pulse 83; Resp 16 S; Pulse Ox 100% on R/A; Weight 74.84 kg (M); Height 6 kc6 ft. 2 in. (R); 11:51 BP 145 / 95; Pulse 68; Resp 16 S; Pulse Ox 100% on R/A; kc6 12:48 BP 145 / 65; Pulse 84; Resp 16 S; Pulse Ox 98% on R/A; kc6 13:25 BP 138 / 91; Pulse 63; Resp 16 S; Pulse Ox 100% on R/A; kc6 11:29 Body Mass Index 21.18 (74.84 kg, 187.96 cm) kc6 MDM: 11:35 Patient medically screened. rt 13:54 Differential diagnosis: Drug abuse, rhabdomyolysis. Data reviewed: vital signs, nurses rt notes. I considered the following discharge prescriptions or medication management in the emergency department Medications were administered in the Emergency Department. See MAR. Test considered but Not performed: CT: No evidence of trauma, CT scan of the head not indicated. Counseling: I had a detailed discussion with the patient and/or guardian regarding the historical points, exam findings, and any diagnostic results supporting the discharge/admit diagnosis, lab results, the need for outpatient follow up, to return to the emergency department if symptoms worsen or persist or if there are any questions or concerns that arise at home. Response to treatment: the patient's symptoms have markedly improved after treatment. 05/11 11:36 Order name: Acetaminophen; Complete Time: 12:49 rt 05/11 11:36 Order name: Basic Metabolic Panel; Complete Time: 12:49 rt 05/11 11:36 Order name: CBC with Diff; Complete Time: 12:14 rt 05/11 11:36 Order name: ETOH Level; Complete Time: 12:24 rt 05/11 11:36 Order name: Hepatic Function; Complete Time: 12:49 rt 05/11 11:36 Order name: PT-INR; Complete Time: 12:14 rt 05/11 11:36 Order name: Ptt, Activated; Complete Time: 12:14 rt 05/11 11:36 Order name: Salicylate; Complete Time: 12:24 rt 05/11 11:36 Order name: Urinalysis w/ reflexes; Complete Time: 12:49 rt 05/11 11:36 Order name: Urine Drug Screen; Complete Time: 12:49 rt 05/11 11:36 Order name: CPK; Complete Time: 12:49 rt 05/11 11:36 Order name: EKG; Complete Time: 11:37 rt 05/11 11:36 Order name: EKG - Nurse/Tech; Complete Time: 11:51 rt 05/11 11:36 Order name: IV Saline Lock; Complete Time: 11:51 rt 05/11 11:36 Order name: Labs collected and sent; Complete Time: 11:51 rt 05/11 11:36 Order name: Suicide Screening ([place]); Complete Time: 11:51 rt EC:54 Rate is 69 beats/min. Rhythm is regular, Normal Sinus Rhythm with No ectopy. QRS [place] rt is Normal. PA interval is normal. QRS interval is normal. QT interval is normal. No Q waves. T waves are Normal. No ST changes noted. Interpreted by me. Administered Medications: 12:29 Drug: LORazepam PO 1 mg PO once Route: PO; kc6 13:25 Follow up: Response: No adverse reaction; Anxiety decreased; RASS: Drowsy (-1) kc6 12:29 Drug: Ativan IVP 1 mg IVP once Route: IVP; Site: right antecubital; kc6 13:25 Follow up: Response: No adverse reaction; Anxiety decreased; RASS: Drowsy (-1) kc6 Disposition Summary: 05/12/23 13:51 Discharge Ordered Notes: Location: Home rt Problem: new rt Symptoms: have improved rt Condition: Stable rt Diagnosis - Phencyclidine abuse rt Followup: rt - With: Private Physician - When: 2 - 3 days - Reason: Discharge Instructions: - Discharge Summary Sheet rt - Illegal Drug Use Information, Adult rt Forms: - Medication Reconciliation Form rt - Thank You Letter rt - Antibiotic Education rt - Prescription Opioid Use rt - Patient Portal Instructions rt - Leadership Thank You Letter rt Signatures: Dispatcher [employer] Cele Mora, RN RN kc6 Jose Urena MD MD rt
[2023-05-12 14:43] VITALS: BP 138/91; O2SAT 100
== END ==
LOC: ER 11:28
DX: F16.10 Hallucinogen abuse, uncomplicated (principal)
CPT/HCPCS: 36415; 80048; 80076; 80143; 80179; 80307; 81001; 82077; 82550; 85025; 85610; 85730; 93005

== ENCOUNTER 2023-06-06 21:32 | Inpatient (IN) | payer SELFPAY ==
[2023-06-06] MEDS ORDERED: NA CHLORIDE 0.9% 2,000 ML ONE (22:19)
[2023-06-06] MEDS ORDERED: activated charcoaL 25 GM/120 ML TUBE ONE (22:26)
[2023-06-06] MEDS ORDERED: ACTIVATED CHARCOAL 50 GM/240 ML ONE ×2 (22:26→22:34)
[2023-06-06 22:45] LABS: Absolute Eosinophils 0.1 K/uL (0-0.5); Absolute Lymphocytes (CBC) 2.5 K/uL (0.7-4.9); Absolute Monocytes 0.9 K/uL (0.1-1.3); Absolute Neutrophil 5.3 K/uL (1.8-8.0); Hematocrit 45.8 % (39.6-49.0); MPV 8.2 fL (7.6-11.3); Monocytes % 10.2 % (3.3-12.3)
[2023-06-06 22:48] LABS: Basophils % 0.4 % (0-1.3); Eosinophils % 0.9 % (0-4.4); Hemoglobin 15.6 g/dL (13.6-17.9); Lymphocytes % 28.9 % (15.3-44.8); MCH 31.9 pg (27.0-35.0); MCV 93.8 fL (80-100); Neutrophils % 59.6 % (41.7-73.7); PT Prothrombin Time 11.6 SECONDS (9.5-12.5); Platelets 275 thou/uL (152-406); Protime INR 1.06; RBC Red Blood Cell Count 4.88 M/uL (4.33-5.43); Red Cell Distribution Width 12.4 % (12.1-15.2)
[2023-06-06 22:55] LABS: Specific Gravity 1.028 (1.005-1.030); Sqamous Epithelial None Seen /HPF (None Seen); Urine Bacteria None Seen /HPF (<20); Urine Bilirubin NEGATIVE (Negative); Urine Blood Negative (Negative); Urine Clarity Extremely Turbid (Clear); Urine Color Light-Yellow (Yellow); Urine Culture Reflex Order NOT NEEDED; Urine Glucose NEGATIVE (Negative); Urine Ketones NEGATIVE (Negative); Urine Microscopic Reflex YN ORDER UMIC; Urine Mucus Slight /HPF (None Seen); Urine Nitrite NEGATIVE (Negative); Urine Protein TRACE (Negative); Urine RBC <5 /HPF (None Seen); Urine Urobilinogen Normal (Normal); Urine WBC <5 /HPF (<5); Urine Yeast (Budding) Few /HPF (None Seen); Urine pH 6.5 (5.0-7.0)
[2023-06-06 22:56] LABS: ALT/SGPT 22 U/L (16-61); AST/SGOT 26 U/L (15-37); Alkaline Phosphatase 102 U/L (45-117); BUN Blood Urea Nitrogen 21 mg/dL (7-18); Barbiturates NEGATIVE (NEGATIVE); Benzodiazepines POSITIVE (NEGATIVE); Bicarbonate 29 mEq/L (21-32); Bilirubin Direct < 0.1 mg/dL (0-0.2); Bilirubin Total 0.4 mg/dL (0.2-1.0); Cocaine POSITIVE (NEGATIVE); Globulin 3.9 g/dL (2.3-3.5); Glomerular Filtration Rate 105 ml/min (=/>90); Glucose Level 79 mg/dL (74-106); METHAMPHETAM POSITIVE (NEGATIVE); Methadone NEGATIVE (NEGATIVE); Opiates NEGATIVE (NEGATIVE); Phencyclidine NEGATIVE (NEGATIVE); Protein, Total 7.9 g/dL (6.4-8.2); Sodium Level 137 mEq/L (136-145); THC Cannibis POSITIVE (NEGATIVE)
[2023-06-06 22:57] LABS: Bilirubin Indirect, Calculated ND mg/dL (0.2-0.8)
[2023-06-07] MEDS ORDERED: Acetylcysteine 6000mg/30mL IV ONE ×2 (00:08→02:11)
--- NOTE | 2023-06-07 00:21 | ER ---
Nurse's Notes [facility] Name: Elliot Paige Age: 27 yrs Sex: Male : 1995 Arrival Date: 06/06/2023 Time: 21:32 Bed 18 Private MD: Diagnosis: Suicidal ideations Presentation: 06/05 21:35 Chief complaint: Patient states: I took 5 full handfulls of over the counter Ibuprofen, jb4 the biggest dose you can get at [place] in an attempt to kill myself at 2105. That is still my method I would use. Coronavirus screen: At this time, the client does not indicate any symptoms associated with coronavirus-19. Ebola Screen: No symptoms or risks identified at this time. Initial Sepsis Screen: Does the patient meet any 2 criteria? No. Patient's initial sepsis screen is negative. Does the patient have a suspected source of infection? No. Patient's initial sepsis screen is negative. Risk Assessment: Do you want to hurt yourself or someone else? Patient reports desire/thoughts of hurting themselves or someone else. Provider notified. Onset of symptoms was June 06, 2023. Transition of care: patient was not received from another setting of care. 21:35 Method Of Arrival: Ambulatory jb4 21:35 Acuity: MEGA 2 jb4 Triage Assessment: 21:53 General: Appears distressed, uncomfortable, slender, Behavior is cooperative, anxious. jb4 Pain: Complains of pain in abdomen Pain does not radiate. Pain currently is 5 out of 10 on a pain scale. EENT: No signs and/or symptoms were reported regarding the EENT system. Neuro: Level of Consciousness is awake, alert, obeys commands, Oriented to person, place, time, situation. Cardiovascular: Patient's skin is warm and dry. Respiratory: Airway is patent Respiratory effort is even, unlabored, Respiratory pattern is regular, agonal. GI: Abdomen is flat, non-distended, Reports lower abdominal pain, upper abdominal pain. : No signs and/or symptoms were reported regarding the genitourinary system. Derm: Skin is intact, Skin is pink, warm \\T\\ dry. Musculoskeletal: Circulation, motion, and sensation intact. Range of motion: intact in all extremities. Historical: - Allergies: 21:53 No Known Allergies; jb4 - PMHx: 21:53 Bipolar disorder; Cutter; drug abuse; Seizures; Alcoholism; jb4 - Immunization history:: Adult Immunizations up to date. - Infectious Disease History:: Denies. - Social history:: Smoking status: Patient denies any tobacco usage or history of. Patient uses alcohol, on a daily basis. 6-12 tall twisted teas per day, last drink at 2200 06/05/2023. Screenin:34 [facility] ED Fall Risk Assessment (Adult) History of falling in the last 3 months, tl4 including since admission No falls in past 3 months (0 pts) Confusion or Disorientation No (0 pts) Intoxicated or Sedated No (0 pts) Impaired Gait No (0 pts) Mobility Assist Device Used No (0 pt) Altered Elimination No (0 pt) Score/Fall Risk Level 0 - 2 = Low Risk Oriented to surroundings, Maintained a safe environment, Educated pt \\T\\ family on fall prevention, incl call for assistance when getting out of bed, Assessed \\T\\ reinforced patient's understanding of fall precautions, Hourly rounding (assess needs \\T\\ fall precautionary measures) done, Used ambulatory aids as needed (educated on \\T\\ assisted with), Used gait belt as appropriate. Abuse screen: Denies threats or abuse. Denies injuries from another. Nutritional screening: No deficits noted. Tuberculosis screening: No symptoms or risk factors identified. Assessment: 22:07 Reassessment: Poison control called, recommend tox work up, 1gm/kg of Activated jb4 charcoal and fluids. Provider notified, see MAR. Case #[id number]. 22:38 Reassessment: Poison control advised ER staff to avoid Activated Charcoal with jb4 Sorbitol. Verified with pharmacy that the Charcoal being given does not have Sorbitol, pharmacy confirmed Charcoal available to staff is safe to use. 23:00 Reassessment: Pt reports that it may not have been Motrin that he took and that it was jb4 Tylenol, Poison control consulted, advised to give acetylcysteine IV for Tylenol toxicity and over dose. Provider notified, see MAR for orders. 06/06 00:00 Reassessment: Patient appears in no apparent distress at this time. Patient and/or bm8 family updated on plan of care and expected duration. Pain level reassessed. Patient is alert, oriented x 3, equal unlabored respirations, skin warm/dry/pink. Patient denies pain at this time. Reassessment: pt is in room with family talking and laughing. on monitor for continued vital sign evaluation. General: Appears in no apparent distress. comfortable, Behavior is calm, cooperative, appropriate for age. Pain: Denies pain. Neuro: Level of Consciousness is awake, alert, obeys commands, Oriented to person, place, time, situation, Appropriate for age. Cardiovascular: Heart tones S1 S2 Capillary refill < 3 seconds Patient's skin is warm and dry. Respiratory: Airway is patent Respiratory effort is even, unlabored, Respiratory pattern is regular, symmetrical, Breath sounds are coarse bilaterally. GI: No deficits noted. No signs and/or symptoms were reported involving the gastrointestinal system. : No deficits noted. No signs and/or symptoms were reported regarding the genitourinary system. EENT: No deficits noted. No signs and/or symptoms were reported regarding the EENT system. Derm: No deficits noted. No signs and/or symptoms reported regarding the dermatologic system. Musculoskeletal: No deficits noted. No signs and/or symptoms reported regarding the musculoskeletal system. Overdose: 06/05 23:35 [place] Suicide Severity Screening: "In the past month, have you wished you were tl4 or wished you could go to sleep and not wake up?" Patient responds "yes." Based off client's responses, additional C-SSRS screening questions required. "In the past month, have you actually had any thoughts of killing yourself?" Patient responds "yes." Based off client's responses, additional C-SSRS screening questions required. "In your lifetime, have you ever done anything, started to do anything, or prepared to do anything to end your life?" Patient responds "yes.". Patient took Unknown amount of acetaminophen. Vital Signs: 21:35 BP 144 / 101; Pulse 88; Resp 16; Temp 97.5(TE); Pulse Ox 99% on R/A; Weight 72.57 kg jb4 (R); Height 6 ft. 1 in. (R); 22:05 Weight 68.04 kg (M); jb4 23:47 BP 128 / 85; Pulse 139; Resp 16; Pulse Ox 95% on R/A; tl4 06/06 00:00 BP 110 / 62; Pulse 92; Resp 17; Temp 97.5; Pulse Ox 98% ; Pain 0/10; bm8 00:03 BP 113 / 62; Pulse 78; Pulse Ox 97% on R/A; rv1 06/05 21:35 Body Mass Index 21.11 (68.04 kg, 185.42 cm) jb4 06/06 00:00 Pain Scale: Adult bm8 Simone Coma Score: 00:00 Eye Response: spontaneous(4). Motor Response: obeys commands(6). Verbal Response: bm8 oriented(5). Total: 15. ED Course: 06/05 21:33 Patient arrived in ED. ra3 21:37 Branden Thomas PA is PHCP. cp 21:37 Jose Urena MD is Attending Physician. cp 21:53 Triage completed. jb4 21:53 Arm band placed on right wrist. jb4 22:12 Ousmane Mckinney, RN is Primary Nurse. tl4 22:12 Acetaminophen Sent. tl4 22:12 Basic Metabolic Panel Sent. tl4 22:12 CBC with Diff Sent. tl4 22:12 ETOH Level Sent. tl4 22:12 Hepatic Function Sent. tl4 22:12 PT-INR Sent. tl4 22:12 Ptt, Activated Sent. tl4 22:12 Salicylate Sent. tl4 22:12 Urinalysis w/ reflexes Sent. tl4 22:12 Urine Drug Screen Sent. tl4 22:24 Safety checks: Items removed: yes. Sitter present: Yes. Door closed. Noise minimized. rv1 Lights dimmed. Warm blanket given. Client placed on continuous cardiac and pulse oximetry monitoring. NIBP monitoring applied. Pulse ox on. 22:25 Inserted saline lock: 20 gauge in left antecubital area, using aseptic technique. Blood rv1 collected. 23:34 Bed in low position. Side rails up X2. Adult w/ patient. Pt in psych attire. Provided tl4 Education on: ED process for psych. Diet: Tolerated well inés yovany. 06/06 00:00 Safety Checks: Personal items have been removed. The door is open or patient has been bm8 placed in a hallway bed/chair. A family member and/or friend is present and encouraged to stay. Sitter present at this time. 00:00 Patient has correct armband on for positive identification. Bed in low position. Side bm8 rails up X2. Adult w/ patient. 00:09 Report received from [facility] assuming care of pt at this time. bm8 00:09 No provider procedures requiring assistance completed. bm8 00:19 Jean Wagner MD is Hospitalizing Provider. cp 00:57 Acetaminophen Level Sent. rv1 01:00 Safety Checks: Personal items have been removed. The door is open or patient has been bm8 placed in a hallway bed/chair. A family member and/or friend is present and encouraged to stay. Sitter present at this time. 02:06 Patient admitted, IV remains in place. bm8 Administered Medications: 06/05 22:33 Not Given (Other Intervention Used): actidose-sorbitolsuspension 100 grams PO once jb4 22:44 Drug: NS 0.9% IV 1000 ml IV at 1 bolus Per protocol; 1000 mL bolus Route: IV; Rate: 1 tl4 bolus; Site: left antecubital; 06/06 02:03 Follow up: Response: No adverse reaction; IV Status: Completed infusion; IV Intake: bm8 1000ml 06/05 22:45 Drug: NS 0.9% IV 1000 ml IV at 1 bolus Per protocol; 1000 mL bolus Route: IV; Rate: 1 tl4 bolus; Site: left antecubital; Delivery: Primary tubing; 06/06 02:03 Follow up: Response: No adverse reaction; IV Status: Completed infusion; IV Intake: bm8 1000ml 06/05 22:57 Drug: Actidose PO Suspension (50 g/240 mL) 100 grams PO once Route: PO; tl4 23:32 Follow up: Response: No adverse reaction tl4 06/06 01:17 Drug: Acetadote IV 150 mg/kg IV at calculated rate once; not to exceed 16.5 grams bm8 administer over 1 hour Route: IV; Rate: calculated rate; Site: left forearm; 02:03 Follow up: Response: Nausea is increased; IV Status: Completed infusion bm8 Medication: 00:00 VIS not applicable for this client. bm8 Intake: 02:03 IV: 1000ml; Total: 1000ml. bm8 02:03 IV: 1000ml; Total: 2000ml. bm8 Outcome: 00:20 Decision to Hospitalize by Provider. cp 02:02 Patient left the ED. bm8 02:05 Admitted to ICU accompanied by nurse, via wheelchair, room icu 1, Report called to bird ovalle rn 02:05 Condition: stable 02:05 Instructed on the need for admit, Demonstrated understanding of instructions, follow-up care, medications, Signatures: Branden Thomas PA PA cp Bryson, James RN RN jb4 Little Fernandez rv1 Ousmane Mckinney RN RN tl4 Ani Bird ra3 Dre Blum, RN RN bm8 Corrections: (The following items were deleted from the chart) 06/05 22:32 22:24 Safety checks: Items removed: yes. Door open/sign placed on door: yes. Sitter rv1 present: Yes. rv1
--- NOTE | 2023-06-07 00:21 | EDPHYS ---
Physician Documentation [facility] Name: Elliot Paige Age: 27 yrs Sex: Male : 1995 Arrival Date: 06/06/2023 Time: 21:32 Bed 18 Private MD: ED Physician Jose Urena HPI: 06/05 21:41 This 27 yrs old Male presents to ER via Unassigned with complaints of Possible Overdose.cp 21:41 The patient presents to the emergency department after a known overdose, that was cp intentional. Context: Method: the patient has a confirmed or suspected ingestion, Time: today, about 2100. Associated signs and symptoms: The patient has no apparent associated signs or symptoms. Patient reports taking multiple handfuls of OTC Ibuprofen, approximately 1/2 bottle worth, in attempt to kill himself. Historical: - Allergies: 21:53 No Known Allergies; jb4 - PMHx: 21:53 Bipolar disorder; Cutter; drug abuse; Seizures; Alcoholism; jb4 - Immunization history:: Adult Immunizations up to date. - Infectious Disease History:: Denies. - Social history:: Smoking status: Patient denies any tobacco usage or history of. Patient uses alcohol, on a daily basis. 6-12 tall twisted teas per day, last drink at 2200 06/05/2023. ROS: 21:45 Constitutional: Negative for body aches, chills, fever, poor PO intake, cp 21:45 Eyes: Negative for injury, pain, redness, and discharge, cp 21:45 ENT: Negative for drainage from ear(s), ear pain, sore throat, difficulty swallowing, difficulty handling secretions, 21:45 Cardiovascular: Negative for chest pain, 21:45 Respiratory: Negative for cough, shortness of breath, wheezing, 21:45 Abdomen/GI: Negative for abdominal pain, vomiting, diarrhea, constipation, 21:45 Neuro: Negative for altered mental status, dizziness, headache, 21:45 Psych: Positive for suicide gesture, suicidal ideation, 21:45 All other systems are negative, Exam: 21:50 Constitutional: The patient appears in no acute distress, alert, awake, cp non-diaphoretic, non-toxic, well developed, well nourished, 21:50 Head/Face: Normocephalic, atraumatic. cp 21:50 Eyes: Periorbital structures: appear normal, Conjunctiva: normal, no exudate, no injection, Sclera: no appreciated abnormality, Lids and lashes: appear normal, bilaterally, 21:50 ENT: External ear(s): are unremarkable, Nose: is normal, Mouth: Lips: moist, Oral mucosa: pink and intact, moist, Posterior pharynx: Airway: no evidence of obstruction, patent, 21:50 Neck: ROM/movement: is normal, is supple, without pain, no range of motions limitations, 21:50 Chest/axilla: Inspection: normal, 21:50 Cardiovascular: Rate: normal, Rhythm: regular, Edema: is not appreciated, JVD: is not appreciated, 21:50 Respiratory: the patient does not display signs of respiratory distress, Respirations: normal, no use of accessory muscles, no retractions, labored breathing, is not present, Breath sounds: are clear throughout, no decreased breath sounds, no stridor, no wheezing, 21:50 Abdomen/GI: Inspection: abdomen appears normal, Bowel sounds: active, all quadrants, Palpation: abdomen is soft and non-tender, in all quadrants, 21:50 Back: pain, is absent, ROM is normal, 21:50 Neuro: Orientation: to person, place \T\ time. Mentation: is normal, Cerebellar function: is grossly normal, Motor: moves all fours, strength is normal, Sensation: is normal, 22:27 ECG was reviewed by the Attending Physician. cp Vital Signs: 21:35 BP 144 / 101; Pulse 88; Resp 16; Temp 97.5(TE); Pulse Ox 99% on R/A; Weight 72.57 kg jb4 (R); Height 6 ft. 1 in. (R); 22:05 Weight 68.04 kg (M); jb4 23:47 BP 128 / 85; Pulse 139; Resp 16; Pulse Ox 95% on R/A; tl4 0408 00:00 BP 110 / 62; Pulse 92; Resp 17; Temp 97.5; Pulse Ox 98% ; Pain 0/10; bm8 00:03 BP 113 / 62; Pulse 78; Pulse Ox 97% on R/A; rv1 06/05 21:35 Body Mass Index 21.11 (68.04 kg, 185.42 cm) jb4 04 00:00 Pain Scale: Adult bm8 [place] Coma Score: 00:00 Eye Response: spontaneous(4). Motor Response: obeys commands(6). Verbal Response: bm8 oriented(5). Total: 15. MDM: 06/05 21:37 Patient medically screened. cp 23:00 Data reviewed: vital signs, nurses notes, lab test result(s), EKG, I have discussed the cp patient's presentation/case with the attending Emergency Department Physician;. 23:27 ED course: Poison control consulted spoke with Yunior walker charge nurse. Recommendation cp is to start acetylcysteine the standard dose to give 150 mg/kg over 1 hour, then give the 4-hour dose and check a 4-hour Tylenol level. Patient needs to be observed for the next 16 hours. 06/06 00:25 Management of patient was discussed with the following: Hospitalist: DR Wagner, will cp admit after discussion. 06/05 22:04 Order name: Acetaminophen; Complete Time: 22:58 cp 06/05 22:59 Interpretation: Abnormal: ACETA 87.4. cp 06/05 22:04 Order name: Basic Metabolic Panel; Complete Time: 22:58 cp 06/05 22:04 Order name: CBC with Diff; Complete Time: 22:58 cp 06/05 22:04 Order name: ETOH Level; Complete Time: 22:58 cp 06/05 22:04 Order name: Hepatic Function; Complete Time: 22:58 cp 06/05 22:04 Order name: PT-INR; Complete Time: 22:58 cp 06/05 22:04 Order name: Ptt, Activated; Complete Time: 22:58 cp 06/05 22:04 Order name: Salicylate; Complete Time: 22:58 cp 06/05 22:04 Order name: Urinalysis w/ reflexes; Complete Time: 22:58 cp 06/05 22:04 Order name: Urine Drug Screen; Complete Time: 22:58 cp 06/06 00:26 Order name: Urinalysis w/ reflexes EDMS 06/06 00:26 Order name: CBC with Automated Diff EDMS 06/06 00:26 Order name: CBC with Automated Diff EDMS 06/06 00:26 Order name: Comprehensive Metabolic Panel EDMS 06/06 00:26 Order name: Comprehensive Metabolic Panel EDMS 06/06 00:32 Order name: Acetaminophen Level EDMS 06/05 22:04 Order name: EKG; Complete Time: 22:05 cp 06/05 22:04 Order name: EKG - Nurse/Tech; Complete Time: 22:21 cp 06/05 22:04 Order name: IV Saline Lock; Complete Time: 22:12 cp 06/05 22:04 Order name: Labs collected and sent; Complete Time: 22:12 cp 06/05 22:04 Order name: Suicide Precautions; Complete Time: 22:12 cp 06/05 22:04 Order name: Suicide Screening ([employer]); Complete Time: 22:12 cp EC/07 22:27 Rate is 84 beats/min. Rhythm is regular. QRS Cl[place] is Normal. CT interval is normal. QRS cp interval is normal. QT interval is normal. T waves are Inverted in lead aVR. Interpreted by me. Reviewed by me. Administered Medications: 22:33 Not Given (Other Intervention Used): actidose-sorbitolsuspension 100 grams PO once jb4 22:44 Drug: NS 0.9% IV 1000 ml IV at 1 bolus Per protocol; 1000 mL bolus Route: IV; Rate: 1 tl4 bolus; Site: left antecubital; 06/06 02:03 Follow up: Response: No adverse reaction; IV Status: Completed infusion; IV Intake: bm8 1000ml 06/05 22:45 Drug: NS 0.9% IV 1000 ml IV at 1 bolus Per protocol; 1000 mL bolus Route: IV; Rate: 1 tl4 bolus; Site: left antecubital; Delivery: Primary tubing; 06/06 02:03 Follow up: Response: No adverse reaction; IV Status: Completed infusion; IV Intake: bm8 1000ml 06/05 22:57 Drug: Actidose PO Suspension (50 g/240 mL) 100 grams PO once Route: PO; tl4 23:32 Follow up: Response: No adverse reaction tl4 06/06 01:17 Drug: Acetadote IV 150 mg/kg IV at calculated rate once; not to exceed 16.5 grams bm8 administer over 1 hour Route: IV; Rate: calculated rate; Site: left forearm; 02:03 Follow up: Response: Nausea is increased; IV Status: Completed infusion bm8 Disposition: 02:45 Co-signature as Attending Physician, Jose Urena MD I reviewed the patient's care rt provided by the Advanced Practice Provider and agree with the diagnosis and treatment plan. Disposition Summary: 06/07/23 00:20 Hospitalization Ordered Notes: Hospitalization Status: Observation cp Provider: Jean Wagner cp Condition: Stable cp Problem: new cp Symptoms: have improved cp Bed/Room Type: Standard cp Location: Intensive Care Unit(06/07/23 01:51) jb4 Room Assignment: 1-(06/07/23 01:51) jb4 Diagnosis - Suicidal ideations cp Forms: - Medication Reconciliation Form cp - SBAR form cp - Leadership Thank You Letter cp Signatures: Dispatcher [employer] EDMS Branden Thomas PA PA cp Rubin Beard, RN RN jb4 Jose Urena MD MD rt Ousmane Mckinney RN RN tl4 Dre Blum, RN RN bm8 Corrections: (The following items were deleted from the chart) 06/05 22:05 22:05 ACETAMINOPHEN+C.LAB.BRZ ordered. EDMS EDMS 22:05 22:05 BASIC METABOLIC PANEL+C.LAB.BRZ ordered. EDMS EDMS 22:05 22:05 CBC+H.LAB.BRZ ordered. EDMS EDMS 22:05 22:05 ETHANOL+C.LAB.BRZ ordered. EDMS EDMS 22:05 22:05 HEPATIC FUNCTION+C.LAB.BRZ ordered. EDMS EDMS 22:05 22:05 PROTIME (+INR)+COAG.LAB.BRZ ordered. EDMS EDMS 22:05 22:05 PTT, ACTIVATED+COAG.LAB.BRZ ordered. EDMS EDMS 22:05 22:05 SALICYLATE+C.LAB.BRZ ordered. EDMS EDMS 22:05 22:05 Urinalysis+U.LAB.BRZ ordered. EDMS EDMS 22:05 22:05 URINE DRUG SCREEN+UC.LAB.BRZ ordered. EDMS EDMS 06/06 01:51 00:20 Telemetry/MedSurg (observation) jb4 01:51 00:20 cp jb4
--- NOTE | 2023-06-07 00:32 | P.HP ---
Certification for Inpatient Patient admitted to: Inpatient With expected LOS: >2 Midnights Practitioner: I am a practitioner with admitting privileges, knowledge of patient current condition, hospital course, and medical plan of care. Services: Services provided to patient in accordance with Admission requirements found in Title 42 Section 412.3 of the Code of Federal Regulations Patient History Date of Service: 06/07/23 Reason for admission: Suicidal ideation, drug overdose History of Present Illness: 27 yrs old Male with past medical history of bipolar disorder, depression, drug abuse, seizures, alcoholism brought to ER with suicidal ideation and overdose with Tylenol. Patient has been taking ibuprofen/Tylenol . He took half a bottle of the medication in an attempt to kill himself. Happened at 9:00 in the night. Denies any chest pain or shortness of breath. No nausea vomiting or diarrhea. Patient also noted to have history of drug abuse. Denies any fever or chills. Denies any chest pain or shortness of breath Patient was assessed in the ER and was noted to have elevated Tylenol level and was admitted to the ICU with one-to-one and also started on N-acetylcysteine after contacting poison control Allergies No Known Allergies Allergy (Unverified 07/31/16 01:36) Home Medications: NK [No Home Meds] 06/07/23 - Past Medical/Surgical History Diabetic: No Past Medical History: Reviewed- Non-Contributory -: Bipolar Disorder -: Depression -: Substance Use Disorder - Methamphetamines, THC, heroin, cocaine, benzos - Family History Mother -: Hypertension - Social History Alcohol use: Yes CD- Drugs: Yes Caffeine use: Yes Review of Systems 10-point ROS is otherwise unremarkable Physical Examination - Vital Signs Temperature: 97.1 F Blood Pressure: 130/88 Pulse: 76 Respirations: 18 Pulse Ox (%): 98 - Physical Exam General: Alert, In no apparent distress, Oriented x3 HEENT: Atraumatic, Normocephalic Neck: Supple, 2+ carotid pulse no bruit Respiratory: Clear to auscultation bilaterally, Normal air movement Cardiovascular: No edema, Regular rate/rhythm, Normal S1 S2 Capillary refill: <2 Seconds Gastrointestinal: Normal bowel sounds, Soft and benign, W/out hepatosplenomegaly, No ascites, No tenderness Musculoskeletal: No clubbing, No swelling Integumentary: No rashes, No breakdown Neurological: Normal speech, Normal strength at 5/5 x4 extr, Cranial nerves 3-12 intact, Normal reflexes 2+ Lymphatics: No axilla or inguinal lymphadenopathy - Studies Laboratory Data (last 24 hrs) 06/06/23 06/06/23 06/06/23 22:10 22:10 22:10 WBC 8.80 Hgb 15.6 Hct 45.8 Plt Count 275 PT 11.6 INR 1.06 APTT 33.0 Sodium 137 Potassium 4.0 BUN 21 H Creatinine 1.01 Glucose 79 Total Bilirubin 0.4 AST 26 ALT 22 Alkaline Phosphatase 102 Assessment and Plan - Problems (Diagnosis) (1) Overdose by acetaminophen Current Visit: Yes Status: Acute Plan: Admit to ICU Acetaminophen level every 4H till normalize Poison control was contacted Started on N-acetylcysteine drip as per protocol Monitor closely LFTs IV hydration (2) Suicidal ideation Current Visit: Yes Status: Acute Plan: One-to-one May need inpatient psych admission once medically cleared (3) Bipolar disorder Current Visit: Yes Status: Chronic Plan: Continue home medications and titrate as needed (4) Substance abuse Current Visit: Yes Status: Acute Plan: Advise cessation Will tour counselor previous to discharge Social service consulted Discharge Plan: Psychiatry Plan to discharge in: Greater than 2 days - Advance Directives Does patient have a Living Will: No Does patient have a Durable POA for Healthcare: No - Code Status/Comfort Care Code Status: Full Code Time Spent Managing Pts Care (In Minutes): 68
[2023-06-07] MEDS: ACETYLCYSTEINE IV ONE (01:00)
[2023-06-07] MEDS: NA CHLORIDE 0.9% IV ONE (01:00)
[2023-06-07] MEDS: NA CHLORIDE 0.9% 1,000 ML IV SCH (01:00)
[2023-06-07] MEDS ORDERED: NA CHLORIDE 0.9% 500 ML ONE (01:05)
[2023-06-07] MEDS ORDERED: ONDANSETRON 4 MG/2 ML VIAL ONE (01:34)
[2023-06-07] MEDS: ONDANSETRON 4 MG/2 ML VIAL IV PRN (01:40)
[2023-06-07 02:00] VITALS: BMI 19.8
[2023-06-07] MEDS ORDERED: NA CHLORIDE 0.9% 0 ML ONE ×2 (02:12→02:14)
[2023-06-07] MEDS ORDERED: D5W 1,000 ML IV ONE (04:52)
[2023-06-07 05:19] LABS: Absolute Eosinophils 0.1 K/uL (0-0.5); Absolute Lymphocytes (CBC) 2.2 K/uL (0.7-4.9); Absolute Monocytes 0.6 K/uL (0.1-1.3); Absolute Neutrophil 2.9 K/uL (1.8-8.0); Basophils % 0.5 % (0-1.3); Eosinophils % 1.5 % (0-4.4); Hemoglobin 13.8 g/dL (13.6-17.9); Lymphocytes % 37.6 % (15.3-44.8); MCH 31.1 pg (27.0-35.0); MCHC 32.8 g/dL (32.0-36.0); MCV 94.9 fL (80-100); MPV 8.4 fL (7.6-11.3); Monocytes % 10.8 % (3.3-12.3); Neutrophils % 49.6 % (41.7-73.7); Platelets 232 thou/uL (152-406); RBC Red Blood Cell Count 4.42 M/uL (4.33-5.43); Red Cell Distribution Width 12.4 % (12.1-15.2)
[2023-06-07 05:21] LABS: PT Prothrombin Time 13.4 SECONDS (9.5-12.5); Protime INR 1.23
[2023-06-07 05:36] LABS: ALT/SGPT 22 U/L (16-61); AST/SGOT 15 U/L (15-37); Albumin 3.1 g/dL (3.4-5.0); Alkaline Phosphatase 72 U/L (45-117); Anion Gap 8.4 mEq/L (5.0-15.0); BUN Blood Urea Nitrogen 17 mg/dL (7-18); Bicarbonate 26 mEq/L (21-32); Bilirubin Total 0.4 mg/dL (0.2-1.0); Glomerular Filtration Rate 113 ml/min (=/>90); Glucose Level 116 mg/dL (74-106); Potassium 3.4 mEq/L (3.5-5.1); Protein, Total 6.1 g/dL (6.4-8.2); Sodium Level 140 mEq/L (136-145)
[2023-06-07 05:38] LABS: C-Reactive Protein < 2.90 mg/L (<3.00)
[2023-06-07] MEDS: ACETYLCYSTEINE 6,800 MG in D5W 1,000 ML IV ONE (06:37)
[2023-06-07] MEDS: POTASSIUM CL SA 10 MEQ TAB PO ONE (08:49)
--- NOTE | 2023-06-07 11:47 | P.PN ---
Subjective Date of Service: 06/07/23 Chief Complaint: Suicidal ideation, drug overdose Pt is resting comfortably in bed. Pt was sleepy but arousable. He ate breakfast this am. Acetaminophen level has dropped from 91 to 9.2. Waiting for psych eval. No other complaints Review of Systems General: Unremarkable Eyes: Unremarkable ENT: Unremarkable Respiratory: Unremarkable Cardiovascular: Unremarkable Gastrointestinal: Unremarkable Genitourinary: Unremarkable Musculoskeletal: Unremarkable Integumentary: Unremarkable Neurological: Unremarkable Lymphatics: Unremarkable Physical Examination - Vital Signs Temperature: 97.5 F Blood Pressure: 125/84 Pulse: 69 Respirations: 17 Pulse Ox (%): 99 - Physical Exam General: Alert, In no apparent distress, Oriented x2 HEENT: Atraumatic, Normocephalic, PERRLA Neck: Supple, 2+ carotid pulse no bruit Respiratory: Clear to auscultation bilaterally, Normal air movement Cardiovascular: No edema, Normal pulses, Regular rate/rhythm, Normal S1 S2 Capillary refill: <2 Seconds Gastrointestinal: Normal bowel sounds, Soft and benign, Non-distended Musculoskeletal: No clubbing, No swelling Integumentary: No rashes, No breakdown Neurological: Normal speech, Normal strength at 5/5 x4 extr Lymphatics: No axilla or inguinal lymphadenopathy - Studies Laboratory Data (last 24 hrs) 06/06/23 06/06/23 06/06/23 22:10 22:10 22:10 WBC 8.80 Hgb 15.6 Hct 45.8 Plt Count 275 PT 11.6 INR 1.06 APTT 33.0 Sodium 137 Potassium 4.0 BUN 21 H Creatinine 1.01 Glucose 79 Total Bilirubin 0.4 AST 26 ALT 22 Alkaline Phosphatase 102 Assessment And Plan - Plan Acetaminophen overdose; Pt tried to kill himself. At bedside. pt was sleeping. Acetaminophen dropped from 91 on admission to 9.2 this am. Will continue oral fluid intake. Pt has pulled out his iv line multiple times. Suicidal ideation: Pt is waiting for psych eval for possible inpatient pstch placement. Pt is medically stable. Hypokalemia: k is 3.4. Will replete and monitor. Hx of Bipolar disorder: Will continue home med. Substance abuse: Pt is was advised to quit using drugs. DVT ppx: SCD Dispo: Pending hospital course. Will likely need inpatient psych.
--- NOTE | 2023-06-07 12:41 | EKG ---
Test Date: 2023-06-06 Test Time: 22:18:31 Grounds Restoration Specialist: RV MEASUREMENT RESULTS: Intervals: Rate: 84 MO: 116 QRSD: 92 QT: 376 QTc: 444 [place]: P: 71 MO: 116 QRS: 80 T: 74 INTERPRETIVE STATEMENTS: Normal sinus rhythm Normal ECG Compared to ECG 05/12/2023 10:46:30 No significant changes Electronically Signed On 06-07-23 12:40:06 CDT by Yon Solis
[2023-06-08 04:27] VITALS: TEMP 98.1
[2023-06-08 05:03] LABS: Absolute Eosinophils 0.1 K/uL (0-0.5); Absolute Lymphocytes (CBC) 2.3 K/uL (0.7-4.9); Absolute Monocytes 0.7 K/uL (0.1-1.3); Absolute Neutrophil 3.9 K/uL (1.8-8.0); Basophils % 0.5 % (0-1.3); Eosinophils % 1.3 % (0-4.4); Hematocrit 43.4 % (39.6-49.0); Hemoglobin 14.2 g/dL (13.6-17.9); Lymphocytes % 32.8 % (15.3-44.8); MCH 31.2 pg (27.0-35.0); MCHC 32.7 g/dL (32.0-36.0); MCV 95.2 fL (80-100); MPV 8.7 fL (7.6-11.3); Monocytes % 10.5 % (3.3-12.3); Neutrophils % 54.9 % (41.7-73.7); Platelets 237 thou/uL (152-406); RBC Red Blood Cell Count 4.56 M/uL (4.33-5.43); Red Cell Distribution Width 12.4 % (12.1-15.2)
[2023-06-08 05:18] LABS: Albumin 3.4 g/dL (3.4-5.0); Albumin/Globulin Ratio 1.1 (1.1-1.8); Anion Gap 7.6 mEq/L (5.0-15.0); Bilirubin Total 0.2 mg/dL (0.2-1.0); Globulin 3.1 g/dL (2.3-3.5); Potassium 3.6 mEq/L (3.5-5.1); Protein, Total 6.5 g/dL (6.4-8.2)
[2023-06-08 05:27] LABS: PT Prothrombin Time 11.4 SECONDS (9.5-12.5); Protime INR 1.04
[2023-06-08 08:54] VITALS: O2SAT 100
--- NOTE | 2023-06-08 11:46 | P.DS ---
Admission Date: 06/07/23 Discharge Date: 06/08/23 Disposition: TRANSFR TO OTHER-PSY/CD/REHAB Discharge Condition: GOOD Reason for Admission: Suicidal ideation, drug overdose Brief History of Present Illness: 27 yrs old Male with past medical history of bipolar disorder, depression, drug abuse, seizures, alcoholism brought to ER with suicidal ideation and overdose with Tylenol. Patient has been taking ibuprofen/Tylenol . He took half a bottle of the medication in an attempt to kill himself. Happened at 9:00 in the night. Denies any chest pain or shortness of breath. No nausea vomiting or diarrhea. Patient also noted to have history of drug abuse. Denies any fever or chills. Denies any chest pain or shortness of breath Patient was assessed in the ER and was noted to have elevated Tylenol level and was admitted to the ICU with one-to-one and also started on N-acetylcysteine after contacting poison control Hospital Course: Pt is a 27 yo male with no past medical history who presented in the ER with suicidal ideation/ suicide attempt after he overdosed on tylenol. He took half a bottle of the medication in an attempt to kill himself. It happened at 9:00 pm om 06/06/23. On admission, pt denies any chest pain or SOB. On admission, lab studies showed elevated acetaminophen level. Pt received N-acetyl cysteine in the ICU after ER physician called poison control center. The tylenol level tr ended down from 91.7 on the day of admission to <2.5. Pt's symptoms resolved. Psychiatrist evaluated pt and recommended inpatient psych placement. Pt was transferred on 06/08/23 to an inpatient psych facility. Pt was advised to quit using drugs. He was in NAD prior to the transfer. Vital Signs/Physical Exam: Temp Pulse Resp BP Pulse Ox 98.1 F 72 16 134/75 98 06/08/23 11:26 06/08/23 11:26 06/08/23 11:26 06/08/23 11:26 06/08/23 11:26 Laboratory Data at Discharge: WBC 7.00 thou/uL (4.3-10.9) 06/08/23 04:21 Hgb 14.2 g/dL (13.6-17.9) 06/08/23 04:21 Hct 43.4 % (39.6-49.0) 06/08/23 04:21 Plt Count 237 thou/uL (152-406) 06/08/23 04:21 PT 11.4 SECONDS (9.5-12.5) 06/08/23 04:21 INR 1.04 06/08/23 04:21 APTT 33.0 SECONDS (24.3-36.9) 06/06/23 22:10 Sodium Cancelled 06/08/23 04:30 Potassium Cancelled 06/08/23 04:30 BUN Cancelled 06/08/23 04:30 Creatinine Cancelled 06/08/23 04:30 Glucose Cancelled 06/08/23 04:30 Total Bilirubin Cancelled 06/08/23 04:30 AST Cancelled 06/08/23 04:30 ALT Cancelled 06/08/23 04:30 Alkaline Phosphatase Cancelled 06/08/23 04:30 Home Medications: NK [No Home Meds] 06/07/23 Physician Discharge Instructions: Continue ad donna activity. Go to inpatient Psych. Diet: Regular Activity: Ad donna Followup: NONE,NONE [Primary Care Provider] -
[2023-06-08 11:59] VITALS: BP 134/75
== END 2023-06-08 11:25 | DRG 918 ==
LOC: ER 21:32 → ERHOLD 06-07 00:19 → 3RD-ICU 06-07 01:56
PROVIDERS: ADMIT Family Medicine; ATTEND Hospitalist
DX: T39.1X2A Poisoning by 4-Aminophenol derivatives, intentional self-harm, initial encounter (principal); R45.851 Suicidal ideations; F31.9 Bipolar disorder, unspecified; F19.10 Other psychoactive substance abuse, uncomplicated; E87.6 Hypokalemia
CPT/HCPCS: 36415; 80048; 80053; 80076; 80143; 80179; 80307; 81001; 82077; 85025; 85610; 85730; 86140; 93005; 94760; 96361; 96365; 99285; J0132; J2405; J7030; J7040; J7050; J7060

== ENCOUNTER 2023-06-21 12:09 | Emergency (ER) | payer SELFPAY ==
--- NOTE | 2023-06-21 12:26 | EDPHYS ---
Physician Documentation [facility] Name: Elliot Paige Age: 27 yrs Sex: Male : 1995 Arrival Date: 06/21/2023 Time: 12:09 Bed IW5 Private MD: ED Physician Elmer Sidhu HPI: 06/20 12:25 This 27 yrs old Male presents to ER via Unassigned with complaints of Abdominal Pain. 7 12:25 Patient brought in by EMS for nausea, vomiting, and abdominal pain for the past 2 jh7 weeks. Zofran 4 mg IV given in route. The patient states that he overdosed on Tylenol 2 weeks ago and thinks that this may be the cause of his pain. Denies chest pain, shortness of breath, fever, diarrhea, constipation, or any other symptoms.. Historical: - Allergies: 12:25 No Known Allergies; aa5 - PMHx: 12:25 Alcoholism; Bipolar disorder; Cutter; drug abuse; Seizures; aa5 ROS: 12:25 Constitutional: Per HPI 7 Exam: 12:25 Constitutional: This is a well developed, well nourished patient who is awake, alert, jh7 and in no acute distress. Head/Face: Normocephalic, atraumatic. Cardiovascular: Regular rate and rhythm with a normal S1 and S2. No gallops, murmurs, or rubs. Normal PMI, no JVD. No pulse deficits. Respiratory: Lungs have equal breath sounds bilaterally, clear to auscultation and percussion. No rales, rhonchi or wheezes noted. No increased work of breathing, no retractions or nasal flaring. Abdomen/GI: Soft, non-tender, with normal bowel sounds. No distension or tympany. No guarding or rebound. No evidence of tenderness throughout. Skin: Warm, dry with normal turgor. Normal color with no rashes, no lesions, and no evidence of cellulitis. MS/ Extremity: Pulses equal, no cyanosis. Neurovascular intact. Full, normal range of motion. Neuro: Awake and alert, GCS 15, oriented to person, place, time, and situation. Motor strength 5/5 in all extremities. Sensory grossly intact. Normal gait. MDM: 12:17 Patient medically screened. [facility] 12:30 Differential diagnosis: appendicitis, cholecystitis, gastritis, gastroesophageal reflux jh7 disease, Irritable bowel syndrome, non-specific abd pain, pancreatitis. Data reviewed: vital signs, nurses notes. Historians other than the Patient: EMS: ems. Counseling: I had a detailed discussion with the patient and/or guardian regarding the historical points, exam findings, and any diagnostic results supporting the discharge/admit diagnosis, to return to the emergency department if symptoms worsen or persist or if there are any questions or concerns that arise at home. ED course: Right after the patient was assessed he stated that his abdominal pain resolved and he would like to be discharged. Advised him to return to the ER with any new concerning symptoms.. 06/20 12:24 Order name: IV Saline Lock jh7 06/20 12:24 Order name: Labs collected and sent jh Administered Medications: No medications were administered Disposition: 19:55 Co-signature as Attending Physician, Elmer Sidhu MD I reviewed the patient's care rn provided by the Advanced Practice Provider and agree with the diagnosis and treatment plan. Disposition Summary: 06/21/23 12:26 Discharge Ordered Notes: Location: Home [facility] Problem: [facility] Symptoms: have improved jh Condition: Stable jh7 Diagnosis - Abdominal pain, Generalized jh7 Followup: [facility] - With: Private Physician - When: 2 - 3 days - Reason: Recheck today's complaints Discharge Instructions: - Discharge Summary Sheet 7 - Abdominal Pain, Adult jh7 Forms: - Medication Reconciliation Form 7 - Thank You Letter [facility] - Patient Portal Instructions [facility] - Leadership Thank You Letter [facility] Signatures: Dispatcher [employer] EDElmer Payton MD MD rn Calderon, Audri, RN RN aa5 Renee Handy FNP RECORDS MANAGEMENT ENGINEER [facility] Corrections: (The following items were deleted from the chart) 12:24 12:24 CBC+H.LAB.BRZ ordered. EDMS EDMS 12:24 12:24 COMPREHENSIVE METABOLIC PANEL+C.LAB.BRZ ordered. EDMS EDMS 12:24 12:24 LIPASE+C.LAB.BRZ ordered. EDMS EDMS
--- NOTE | 2023-06-21 12:39 | ER ---
Nurse's Notes [facility] Name: Elliot Paige Age: 27 yrs Sex: Male : 1995 Arrival Date: 06/21/2023 Time: 12:09 Bed IW5 Private MD: Diagnosis: Abdominal pain, Generalized Presentation: 06/20 12:25 Chief complaint: EMS states: abdominal pain, nausea and vomiting x 2 weeks ago. 18G to aa5 L AC, Zofran 4mg IVP. 12:25 Onset of symptoms was May 2023. aa5 Historical: - Allergies: 12: No Known Allergies; aa5 - PMHx: 12: Alcoholism; Bipolar disorder; Cutter; drug abuse; Seizures; aa5 ED Course: 12:12 Patient arrived in ED. im 12:17 Rene[facility] Handy FNP [facility] 12:17 Elmer Sidhu MD is Attending Physician. [facility] 12:25 IV discontinued, intact, bleeding controlled, No redness/swelling at site. Pressure aa5 dressing applied. 12:25 Arm band placed on. aa5 Administered Medications: No medications were administered Outcome: 12:25 Patient left the ED. aa5 12:25 Condition: Pt left before triage was completed, pt was seen by provider. 5 12:26 Discharge ordered by . [facility] Signatures: Savi Pierce, RN RN aa5 Renee Handy FNP SOFTWARE APPLICATIONS ENGINEER [facility] Radha Mukherjee Corrections: (The following items were deleted from the chart) 12:46 12:39 Patient left the ED. aa5 aa5 12:46 12:30 IV discontinued, intact, bleeding controlled, No redness/swelling at site. aa5 Pressure dressing applied, 5 12:47 12:25 Condition: Pt left before triage was completed. aa5 5
== END 2023-06-21 12:39 | disposition home or self-care (01) ==
LOC: ER 12:09
DX: R10.84 Generalized abdominal pain (principal); F10.20 Alcohol dependence, uncomplicated
CPT/HCPCS: 99281